=== PATIENT | female | born 1945 | race Caucasian/White ===

== ENCOUNTER 2018-09-26 06:44 | Emergency (ER) | payer OTHER ==
[2018-09-26 07:35] LABS: Protime INR 1.14
[2018-09-26 07:51] LABS: Albumin 3.8 g/dL (3.4-5.0); Bilirubin Direct 0.1 mg/dL (0-0.2); Bilirubin Total 0.5 mg/dL (0.2-1.0); Protein, Total 7.7 g/dL (6.4-8.2)
[2018-09-26 07:57] LABS: Absolute Lymphocytes (CBC) 1.5 K/uL (0.7-4.9); Absolute Monocytes 0.7 K/uL (0.1-1.3); Absolute Neutrophil 5.6 K/uL (1.8-8.0); Basophils % 1.4 % (0-1.3); Eosinophils % 4.2 % (0-4.4); Hematocrit 42.8 % (36.0-45.0); Lymphocytes % 18.2 % (15.3-44.8); MPV 7.8 fL (7.6-11.3); Monocytes % 8.3 % (3.3-12.3); RBC Red Blood Cell Count 4.89 M/uL (3.86-4.86)
[2018-09-26 08:35] LABS: Urine Blood NEGATIVE (NEG); Urine Glucose NEGATIVE (NEG); Urine Protein NEGATIVE (NEG); Urine Specific Gravity 1.025 (1.005-1.030)
[2018-09-26 08:39] LABS: Calcium Oxalate Crystals- Ur MANY (NONE SEEN); Urine Bacteria <20 /HPF (<20); Urine Culture Reflex Order NOT NEEDED; Urine RBC NONE SEEN /HPF (NONE SEEN)
--- NOTE | 2018-09-26 09:15 | RAD REPORT ---
EXAM DESCRIPTION: CT - Head Brain Wo Cont - 09/26/2018 8:58 am CLINICAL HISTORY: Headache/confusion COMPARISON: None. TECHNIQUE: Computed axial tomography of the head was obtained. IV contrast was not requested. All CT scans are performed using dose optimization technique as appropriate and may include automated exposure control or mA/KV adjustment according to patient size. FINDINGS: An intracranial bleed is not seen . The ventricles are normal in caliber. No extra-axial fluid collection is noted. Fluid within the sinuses/ mastoids is not seen. IMPRESSION: No acute intracranial abnormality is seen. If patient's symptoms persist MRI of the bra in would be recommended.
--- NOTE | 2018-09-26 09:23 | RAD REPORT ---
EXAM DESCRIPTION: CT - Abdomen Pelvis W Contrast - 09/26/2018 8:58 am CLINICAL HISTORY: Abdominal pain . COMPARISON: none. TECHNIQUE: Computed axial tomography of the abdomen pelvis was obtained. 100 cc Isovue-300 was admin istered intravenously. Oral contrast was not requested which limits evaluation of bowel. All CT scans are performed using dose optimization technique as appropriate and may include automated exposure control or mA/KV adjustment according to patient size. FINDINGS: Fatty liver. Several small pancreatic calcifications probably related to chronic pancreatitis Spleen upper limits normal size Adrenals and kidneys unremarkable . 8 centimeter cystic mass abuts the anterior aspect of the uterus and dome of the bladder. The mass is midline. No significant free fluid There is no evidence of diverticulitis. Small umbilical hernia contains fat IMPRESSION: 8 centimeter cystic mass within the pelvis may represent a benign ovarian cyst. Ovarian cystic neoplasm is another consideration. Ultrasound recommended
--- NOTE | 2018-09-26 09:24 | RAD REPORT ---
EXAM DESCRIPTION: Mona Single View09/26/2018 7:35 am CLINICAL HISTORY: Shortness of breath COMPARISON: none FINDINGS: The lungs appear clear of acute infiltrate. The heart is borderline enlarged IMPRESSION: No acute abnormalities displayed
[2018-09-26] MEDS ORDERED: POTASSIUM 25 MEQ EFFERV TAB ONE (10:24)
--- NOTE | 2018-09-26 11:38 | ER ---
Nurse's Notes [facility] Name: July Burton Age: 72 yrs Sex: Female : 1945 Arrival Date: 09/26/2018 Time: 06:49 Bed 17 Private MD: Diagnosis: Altered mental status, unspecified Presentation: 09/26 06:54 Presenting complaint: pt's daughter states pt had glaucoma surgery on Thursday after bb which the pt has a known hyphema but over the weekend the pt has become confused with chills. Pt has a condition which daughter explains as the pt will have a panic attack and pass out which has happened several times. They are concerned pt is developing an infection in her right eye. The pt's states pt "acts like this when she takes a lot of medicine". Transition of care: patient was not received from another setting of care. Onset of symptoms was September 24, 2018. Risk Assessment: Do you want to hurt yourself or someone else? Patient reports no desire to harm self or others. Initial Sepsis Screen: Does the patient meet any 2 criteria? No. Patient's initial sepsis screen is negative. Does the patient have a suspected source of infection? Yes: Other: recent eye surgery. Care prior to arrival: None. 06:54 Method Of Arrival: Carried bb 06:54 Acuity: MARCUS 2 bb Triage Assessment: 07:00 General: Appears distressed, comfortable, obese, Behavior is cooperative, CONFUSED. bp Historical: - Allergies: 07:04 No Known Allergies; bb - Home Meds: 07:04 aspirin Oral [Active]; hydrochlorothiazide 50 mg Oral tab 1 tab once daily [Active]; bb multiple vitamins [Active]; Simbrinza ophthalmic ophthalmic [Active]; donepezil 5 mg oral tab 1 tab once daily [Active]; Lumigan ophthalmic ophthalmic [Active]; pravastatin 10 mg oral tab 1 tab once daily [Active]; - PMHx: 07:04 Glaucoma; Hypertension; Hyperlipidemia; bb - PSHx: 07:04 eye surgery; bb - Immunization history:: Adult Immunizations up to date. - Social history:: Smoking status: Patient/guardian denies using tobacco. - Ebola Screening: : No symptoms or risks identified at this time. Screenin:06 Abuse screen: Denies threats or abuse. Denies injuries from another. Nutritional bp screening: No deficits noted. Tuberculosis screening: No symptoms or risk factors identified. Fall Risk None identified. Assessment: 07:00 General: Appears distressed, comfortable, obese, Behavior is cooperative, anxious. bp Pain:. Neuro: Level of Consciousness is awake, obeys commands, confused, Oriented to person. Cardiovascular: Rhythm is sinus rhythm. Respiratory: Airway is patent Respiratory effort is even, unlabored, Respiratory pattern is regular, symmetrical. GI: No signs and/or symptoms were reported involving the gastrointestinal system. : No signs and/or symptoms were reported regarding the genitourinary system. EENT: Reports RECENT GLAUCOMA SX. 07:00 Derm: No deficits noted. Musculoskeletal: Circulation, motion, and sensation intact. bp 08:24 Reassessment: CT PENDING. VS STABLE ON MONITOR. bp 08:42 Reassessment: PT TO CT WITH DEPOSITION OPERATOR. bp 09:09 Reassessment: PT RETURNED FROM CT. ALL CURRENT ORDERS COMPLETED. bp 10:24 Reassessment: U/S PENDING. VS STABLE ON MONITOR. bp 10:56 Reassessment: U/S AT B/S. bp 11:53 Reassessment: PT D/C HOME VIA W/C WITH FAMILY, DX WITH AMS. PT NOW AO4. bp Vital Signs: 07:04 BP 123 / 64; Pulse 67; Resp 16 S; Temp 98.6(O); Pulse Ox 96% on R/A; Weight 111.13 kg bb (R); Height 5 ft. 7 in. (170.18 cm) (R); 08:16 BP 135 / 65; Pulse 71; Resp 18; Temp 97.9(TE); Pulse Ox 98% on R/A; mh5 09:20 BP 120 / 62; Pulse 66; Resp 14; Pulse Ox 99% ; bp 10:30 BP 125 / 106; Pulse 60; Resp 16; Pulse Ox 98% ; bp 11:35 BP 130 / 63; Pulse 62; Resp 20; Temp 98.9(TE); Pulse Ox 100% on R/A; mh5 11:52 BP 120 / 83; Pulse 63; Resp 16; Temp 98.5; Pulse Ox 99% ; bp 07:04 Body Mass Index 38.37 (111.13 kg, 170.18 cm) bb NIH Stroke Scale Scores: 08:07 NIHSS Score: 0 jr8 ED Course: 06:49 Patient arrived in ED. ds1 06:55 Abdelrahman Perera PA is PHCP. jr8 06:55 Raad Cruz MD is Attending Physician. jr8 07:01 Triage completed. bb 07:01 Hal Tineo, RN is Primary Nurse. bp 07:04 Arm band placed on Patient placed in an exam room, on a stretcher, on pulse oximetry. bb Family accompanied patient. 07:05 Inserted saline lock: 20 gauge in left antecubital area, using aseptic technique. Blood mt collected. 07:06 Patient has correct armband on for positive identification. Bed in low position. Call bp light in reach. Side rails up X2. Adult w/ patient. 07:34 X-ray completed. Portable x-ray completed in exam room. Patient tolerated procedure kw well. 07:36 XRAY Chest (1 view) In Process Unspecified. EDMS 08:17 Urine collected: clean catch specimen, clear, Amount Voided: 240mL EKG done, by ED mh5 staff, reviewed by Abdelrahman PRAKASH. 08:58 CT completed. Patient tolerated procedure well. Patient moved back from CT. mw3 09:01 CT Head Brain wo Cont In Process Unspecified. EDMS 09:01 CT Abd/Pelvis - IV Contrast Only In Process Unspecified. EDMS 11:10 Pelvis Complete In Process Unspecified. EDMS 11:11 Ultrasound completed. Patient tolerated well. Radiology exam delayed due to U/S out pt sg3 exam being done. 11:53 No provider procedures requiring assistance completed. IV discontinued, intact, bp bleeding controlled, No redness/swelling at site. Pressure dressing applied. Administered Medications: 10:10 Drug: Potassium Chloride 40 mEq Route: PO; bp 11:54 Follow up: Response: No adverse reaction bp Outcome: 11:36 Discharge ordered by . jr8 11:53 Discharged to home via wheelchair, with family. bp 11:53 Condition: stable 11:53 Discharge instructions given to patient, family, Instructed on discharge instructions, follow up and referral plans. Demonstrated understanding of instructions, follow-up care. 11:54 Patient left the ED. bp NIH Stroke Scale - NIH Stroke Score Date: 09/26/2018 Time: 08:07 Total Score = 0 1a. Level of Consciousness (LOC) - 0(Alert) 1b. Level of Consciousness (LOC) (Year \\T\\ Age) - 0(Both) 1c. LOC Commands (Open \\T\\ Closes Eyes/Lead Painter) - 0(Both) 2. Best Gaze (Lateral Gaze Paresis) - 0(Normal) 3. Visual Field Loss - 0(No visual loss) 4. Facial Palsy - 0(Normal) 5a. Left Arm: Motor (10-second hold) - 0(No drift) 5b. Right Arm: Motor (10-second hold) - 0(No drift) 6a. Left Leg: Motor (5-second hold - always test supine) - 0(No drift) 6b. Right Leg: Motor (5-second hold - always test supine) - 0(No drift) 7. Limb Ataxia (finger/nose \\T\\ heel/ibrahim - test with eyes open) - 0(Absent) 8. Sensory Loss (pinprick arms/legs/face) - 0(Normal) 9. Best Language: Aphasia (description/naming/reading) - 0(No aphasia) 10. Dysarthria (speech clarity - read or repeat words) - 0(Normal) 11. Extinction and Inattention (visual/tactile/auditory/spatial/personal) - 0(No abnormality) Initials: jr8 Signatures: Dispatcher [employer] [facility] Emely Adhikari ds1 Jane Aguayo RN RN Patricia Perdue Josh, PA PA jr8 Gia Agee 5 Fei, [facility] Hal Tineo RN RN bp Godinez, [facility]3 Ana Lovelace 3 Corrections: (The following items were deleted from the chart) 11:11 11:09 Ultrasound completed. Patient tolerated well. sg3 sg3
--- NOTE | 2018-09-26 11:38 | EDPHYS ---
Physician Documentation [facility] Name: July Burton Age: 72 yrs Sex: Female : 1945 Arrival Date: 09/26/2018 Time: 06:49 Bed 17 Private MD: ED Physician Raad Cruz HPI: 09/26 08:07 This 72 yrs old Female presents to ER via Carried with complaints of Altered jr8 Mental Status. 08:07 The patient presents with decreased mental status, decreased responsiveness. Onset: The jr8 symptoms/episode began/occurred acutely, today. Possible causes: unknown. Associated signs and symptoms: The patient has no apparent associated signs or symptoms. Current symptoms: In the emergency department the patient's symptoms are unchanged from the initial presentation. Patient's baseline: Neuro: alert and fully oriented, Motor: no deficits, Ambulation: walks with assist only, uses walker, Speech: normal. The patient has not experienced similar symptoms in the past. The patient has been recently seen by a physician:. Patient recently had glaucoma surgery to right eye. Stated that this morning she was altered and complaining of abdominal pain. Stated that she could not even help her self up. EMS called at that time. Patient currently alert to person, place, time, event. Appears to be slow to respond to questions but answers appropriately. Currently with complaint of mild headache and abdominal discomfort. Patient and family denies recent change in medications or addition to meds. Stated that she is not on any pain meds or other medications that could alter her. Historical: - Allergies: 07:04 No Known Allergies; bb - Home Meds: 07:04 aspirin Oral [Active]; hydrochlorothiazide 50 mg Oral tab 1 tab once daily [Active]; bb multiple vitamins [Active]; Simbrinza ophthalmic ophthalmic [Active]; donepezil 5 mg oral tab 1 tab once daily [Active]; Lumigan ophthalmic ophthalmic [Active]; pravastatin 10 mg oral tab 1 tab once daily [Active]; - PMHx: 07:04 Glaucoma; Hypertension; Hyperlipidemia; bb - PSHx: 07:04 eye surgery; bb - Immunization history:: Adult Immunizations up to date. - Social history:: Smoking status: Patient/guardian denies using tobacco. - Ebola Screening: : No symptoms or risks identified at this time. ROS: 08:07 Eyes: Negative for injury, pain, redness, and discharge, ENT: Negative for injury, jr8 pain, and discharge, Neck: Negative for injury, pain, and swelling, Cardiovascular: Negative for chest pain, palpitations, and edema, Respiratory: Negative for shortness of breath, cough, wheezing, and pleuritic chest pain, Back: Negative for injury and pain, MS/Extremity: Negative for injury and deformity, Skin: Negative for injury, rash, and discoloration. 08:07 Abdomen/GI: Positive for abdominal pain, Negative for nausea, vomiting, and diarrhea, constipation, abdominal cramps, abdominal distension, anorexia, dysphagia, hematemesis, black/tarry stool, rectal pain, rectal bleeding, bowel incontinence, flatulence. 08:07 Neuro: Positive for altered mental status, headache. Exam: 08:07 Eyes: Pupils equal round and reactive to light, extra-ocular motions intact. Lids and jr8 lashes normal. Subconjunctival hemorrhage present to right eye from surgery with mild hyphema present. Cornea within normal limits. Periorbital areas with no swelling, redness, or edema. ENT: Nares patent. No nasal discharge, no septal abnormalities noted. Tympanic membranes are normal and external auditory canals are clear. Oropharynx with no redness, swelling, or masses, exudates, or evidence of obstruction, uvula midline. Mucous membranes moist. Neck: Trachea midline, no thyromegaly or masses palpated, and no cervical lymphadenopathy. Supple, full range of motion without nuchal rigidity, or vertebral point tenderness. No Meningismus. Cardiovascular: Regular rate and rhythm with a normal S1 and S2. No gallops, murmurs, or rubs. Normal PMI, no JVD. No pulse deficits. Respiratory: Lungs have equal breath sounds bilaterally, clear to auscultation and percussion. No rales, rhonchi or wheezes noted. No increased work of breathing, no retractions or nasal flaring. Back: No spinal tenderness. No costovertebral tenderness. Full range of motion. Skin: Warm, dry with normal turgor. Normal color with no rashes, no lesions, and no evidence of cellulitis. MS/ Extremity: Pulses equal, no cyanosis. Neurovascular intact. Full, normal range of motion. 08:07 Abdomen/GI: Inspection: obese Bowel sounds: active, all quadrants, Palpation: soft, in all quadrants, moderate abdominal tenderness, in the epigastric area, right upper quadrant and left upper quadrant, mass, is not appreciated, rebound tenderness, is not appreciated, voluntary guarding, is not appreciated, involuntary guarding, is not appreciated, no appreciated organomegaly, Indicators: McBurney's point is not tender, Weber's sign is negative, Rovsing's sign is negative, Liver: tenderness, is not appreciated. 08:07 Neuro: Orientation: to person, place \T\ time. Mentation: slow to respond, Memory: appropriate for stated age, Cranial nerves: CN I not tested, CN II- XII are normal as tested, visual connell are intact. extraocular movements are intact, Facial palsy and sensory deficits are absent. Nystagmus is absent. Speech is clear and appropriate. Tongue strength is normal, Cerebellar function: normal finger to nose testing, heel to ibrahim testing is normal, Motor: moves all fours, strength is 5/5 in all extremities, Sensation: no obvious gross deficits, Gait: not tested. seizure activity, is not displayed by the patient, Abnormal movements: there are no abnormal movements. Vital Signs: 07:04 BP 123 / 64; Pulse 67; Resp 16 S; Temp 98.6(O); Pulse Ox 96% on R/A; Weight 111.13 kg bb (R); Height 5 ft. 7 in. (170.18 cm) (R); 08:16 BP 135 / 65; Pulse 71; Resp 18; Temp 97.9(TE); Pulse Ox 98% on R/A; mh5 09:20 BP 120 / 62; Pulse 66; Resp 14; Pulse Ox 99% ; bp 10:30 BP 125 / 106; Pulse 60; Resp 16; Pulse Ox 98% ; bp 11:35 BP 130 / 63; Pulse 62; Resp 20; Temp 98.9(TE); Pulse Ox 100% on R/A; mh5 11:52 BP 120 / 83; Pulse 63; Resp 16; Temp 98.5; Pulse Ox 99% ; bp 07:04 Body Mass Index 38.37 (111.13 kg, 170.18 cm) bb NIH Stroke Scale Scores: 08:07 NIHSS Score: 0 jr8 MDM: 06:55 Patient medically screened. jr8 11:34 Data reviewed: vital signs, nurses notes, lab test result(s), EKG, radiologic studies, [facility] CT scan, ultrasound. Data interpreted: Pulse oximetry: on room air is 100 %. Interpretation: normal. Counseling: I had a detailed discussion with the patient and/or guardian regarding: the historical points, exam findings, and any diagnostic results supporting the discharge/admit diagnosis, lab results, radiology results, the need for outpatient follow up, a family practitioner, to return to the emergency department if symptoms worsen or persist or if there are any questions or concerns that arise at home. Response to treatment: the patient's symptoms have markedly improved after treatment. ED course: Patient doing better. No acute infective finding. No other acute findings to suggest earlier altered episode. Patient now back to baseline. Discussed results with family and patient. Good with following up and knows to come back if worse . 09/26 07:14 Order name: Basic Metabolic Panel [facility] 09/26 07:14 Order name: CBC with Diff; Complete Time: 08:12 [facility] 09/26 07:14 Order name: LFT's; Complete Time: 07:53 [facility] 09/26 07:14 Order name: Magnesium; Complete Time: 07:53 09/26 07:14 Order name: NT PRO-BNP; Complete Time: 07:53 [facility] 09/26 07:14 Order name: PT-INR; Complete Time: 08:12 09/26 07:14 Order name: XRAY Chest (1 view); Complete Time: 09:33 09/26 07:14 Order name: Urine Microscopic Only; Complete Time: 09:12 [facility] 09/26 07:17 Order name: Basic Metabolic Panel; Complete Time: 07:53 EDMS 09/26 08:12 Order name: CT Head Brain wo Cont; Complete Time: 09:33 8 09/26 08:12 Order name: CT Abd/Pelvis - IV Contrast Only; Complete Time: 09:33 [facility] 09/26 08:29 Order name: Urine Dipstick--Ancillary (enter results); Complete Time: 09:12 bd 09/26 11:10 Order name: Pelvis Complete; Complete Time: 11:43 EDMS 09/26 07:14 Order name: EKG; Complete Time: 07:18 [facility] 09/26 07:14 Order name: Cardiac monitoring; Complete Time: 07:32 09/26 07:14 Order name: EKG - Nurse/Tech; Complete Time: 07:54 09/26 07:14 Order name: IV Saline Lock; Complete Time: 07:09/26 07:14 Order name: Labs collected and sent; Complete Time: 07:32 09/26 07:14 Order name: O2 Per Protocol; Complete Time: 07:09/26 07:14 Order name: O2 Sat Monitoring; Complete Time: 07:09/26 07:14 Order name: Urine Dipstick-Ancillary (obtain specimen); Complete Time: 08:24 Administered Medications: 10:10 Drug: Potassium Chloride 40 mEq Route: PO; bp 11:54 Follow up: Response: No adverse reaction bp Disposition: 09/27 07:40 Co-signature as Attending Physician, Raad Cruz MD I agree with the assessment and tash plan of care. Disposition: 09/26/18 11:36 Discharged to Home. Impression: Altered mental status, unspecified. - Condition is Stable. - Discharge Instructions: Confusion. - Medication Reconciliation Form, Thank You Letter, Antibiotic Education, Prescription Opioid Use form. - Follow up: Private Physician; When: 2 - 3 days; Reason: Recheck today's complaints, Continuance of care, Re-evaluation by your physician. - Problem is new. - Symptoms have improved. NIH Stroke Scale - NIH Stroke Score Date: 09/26/2018 Time: 08:07 Total Score = 0 1a. Level of Consciousness (LOC) - 0(Alert) 1b. Level of Consciousness (LOC) (Year \T\ Age) - 0(Both) 1c. LOC Commands (Open \T\ Closes Eyes/Heavy Duty Custodian) - 0(Both) 2. Best Gaze (Lateral Gaze Paresis) - 0(Normal) 3. Visual Field Loss - 0(No visual loss) 4. Facial Palsy - 0(Normal) 5a. Left Arm: Motor (10-second hold) - 0(No drift) 5b. Right Arm: Motor (10-second hold) - 0(No drift) 6a. Left Leg: Motor (5-second hold - always test supine) - 0(No drift) 6b. Right Leg: Motor (5-second hold - always test supine) - 0(No drift) 7. Limb Ataxia (finger/nose \T\ heel/ibrahim - test with eyes open) - 0(Absent) 8. Sensory Loss (pinprick arms/legs/face) - 0(Normal) 9. Best Language: Aphasia (description/naming/reading) - 0(No aphasia) 10. Dysarthria (speech clarity - read or repeat words) - 0(Normal) 11. Extinction and Inattention (visual/tactile/auditory/spatial/personal) - 0(No abnormality) Initials: jr8 Signatures: Dispatcher [employer] [facility] Raad Cruz MD MD cha Ballard, Brenda, RN RN bb Abdelrahman Perera PA PA jr8 Hal Tineo, RN RN bp Corrections: (The following items were deleted from the chart) 09/26 08:24 07:16 Abarca ordered. jr8 bp 11:10 09:35 Transvaginal Study (Probe)+[email or web address] ordered. [facility] 11:54 11:36 09/26/2018 11:36 Discharged to Home. Impression: Altered mental status, bp unspecified. Condition is Stable. Forms are Medication Reconciliation Form, Thank You Letter, Antibiotic Education, Prescription Opioid Use. Follow up: Private Physician; When: 2 - 3 days; Reason: Recheck today's complaints, Continuance of care, Re-evaluation by your physician. Problem is new. Symptoms have improved. jr8
--- NOTE | 2018-09-26 11:42 | RAD REPORT ---
EXAM DESCRIPTION: US - Pelvis Complete - 09/26/2018 11:13 am CLINICAL HISTORY: Abdominal pain COMPARISON: CT September 26, 2018 FINDINGS: The uterus measures 8 x 3 x 4 centimeters. Endometrial stripe was poorly visualized. A fib roid is not seen. 8 centimeter anechoic cystic mass is present within the right ovary. Right ovary contains blood flow Left ovary was not seen. An adnexal mass is not noted. No free fluid IMPRESSION: 8 centimeter right ovarian cystic mass likely benign. Follow-up ultrasound 3 months cathi mmended to assess stability
--- NOTE | 2018-09-26 20:50 | EKG ---
Test Date: 2018-09-26 Test Time: 07:41:35 Furnace Firer: RICK MEASUREMENT RESULTS: Intervals: Rate: 59 MN: 180 QRSD: 110 QT: 464 QTc: 459 [place]: P: 31 MN: 180 QRS: -2 T: 26 INTERPRETIVE STATEMENTS: Sinus bradycardia Low voltage QRS Borderline ECG No previous ECG available for comparison Electronically Signed On 09-26-18 20:49:13 CDT by Hebert Monahan
== END 2018-09-26 11:54 | disposition home or self-care (01) ==
LOC: ER 06:44
DX: R41.82 Altered mental status, unspecified (principal); I10 Essential (primary) hypertension; E78.5 Hyperlipidemia, unspecified; Z79.82 Long term (current) use of aspirin
CPT/HCPCS: 36415; 70450; 71045; 74177; 76856; 80048; 80076; 81003; 81015; 83735; 83880; 85025; 85610; 93005; 99285; Q9967

== ENCOUNTER 2019-04-05 22:33 | Observation (INO) | payer OTHER ==
--- OUTSIDE RECORDS SUMMARY | 2019-04-05 22:34 | XMS REPORT ---
:1945 [facility] Address [address] [place] [address] [place] [id number] Care Team Providers Name Role Phone Unavailable Unavailable Unavailable Problems This patient has no known problems. Allergies, Adverse Reactions, Alerts This patient has no known allergies or adverse reactions. Medications This patient has no known medications.
--- OUTSIDE RECORDS SUMMARY | 2019-04-05 22:34 | XMS REPORT | Summary of Care ---
:1945 Author Organization [facility] Address [address] [place] [address] Care Team Providers Name Role Phone Claudette Kidd MD Primary Care Provider Valeriano Mckeon MD Unavailable Reason for Visit Reason Comments LAB Encounter Details Date Type Department Care Team Description 11/15/2018 Central Supply Nurse Visit [facility] Claudette Kidd MD [address] [place] [address] Dr [address] [place] [address] Other reduced mobility ; Professional Office 2, [facility] Lab Memory loss; Building Phlebotomy Type 2 diabetes mellitus without complication, without long-term current use of insulin; Lab Hypervitaminosis B6; Professional Office Other manager terminal (current) drug therapy Building [address] [place] [address] , [address] [place] [address] Allergies Active Allergy Reactions Severity Noted Date Comments Amitriptyline Hcl Hallucinations 09/22/2016 Baclofen Hallucinations 09/22/2016 Docusate Sodium Hallucinations 09/22/2016 Furosemide Hallucinations 09/22/2016 Gabapentin Hallucinations 09/22/2016 Hydrocodone Bitartrate Dizziness 09/22/2016 Pregabalin Hallucinations 06/09/2017 Meloxicam Hallucinations 09/22/2016 Potassium Gluconate Hallucinations 09/22/2016 Tramadol Hcl Hallucinations 09/22/2016 documented as of this encounter (statuses as of 11/15/2018) Medications Medication Sig Dispensed Refills Start Date End Date Status aspirin 325 mg Take 325 mg by 0 Active tabletIndications: mouth daily. Hyperlipidemia, unspecified hyperlipidemia type calcium carbonate-vitamin Take 1 tablet 30 tablet 1 12/18/2016 Active D3 600 mg (1,500 mg)-800 a day unit per tablet PHENAZOPYRIDINE HCL (AZO Take by mouth 0 Active ORAL) 2 (two) times daily. COCONUT OIL TOPICAL Apply to 0 Active area(s). Mixed with mint. Uses prn for muscle pain. multivitamin tablet Take 1 tablet 0 Active by mouth daily. Zinc 50 mg Tab Take 25 mg by 0 Active mouth. LATANOPROST, BULK, MISC 0 Active cyanocobalamin/cobamamide Place under 0 Active (B12 SL) the tongue. APPLE CIDER VINEGAR ORAL Take by mouth 0 Active daily. cinnamon bark (CINNAMON Take by mouth 0 Active ORAL) daily. brinzolamide-brimonidine Place in each 0 Active (SIMBRINZA) 1-0.2 % eye daily. ophthalmic drops thiamine (VITAMIN B-1) 100 Take 100 mg by 0 Active mg tablet mouth daily. bimatoprost 0.03 % Place 1 Drop 0 Active ophthalmic drops in both eyes daily. HYDROCHLOROTHIAZIDE 50 mg TAKE ONE 90 tablet 3 10/03/2018 Active tabletIndications: TABLET BY Essential hypertension MOUTH DAILY pravastatin 10 mg TAKE ONE 90 tablet 0 10/01/2018 Active tabletIndications: TABLET BY Hyperlipidemia, MOUTH EVERY unspecified hyperlipidemia NIGHT AT type BEDTIME DONEPEZIL 5 mg TAKE ONE 90 tablet 3 10/23/2018 Active tabletIndications: Memory TABLET BY loss MOUTH EVERY NIGHT AT BEDTIME documented as of this encounter (statuses as of 11/15/2018) Active Problems Problem Noted Date Occasional tremors 09/22/2016 Essential hypertension 09/22/2016 Glaucoma, unspecified glaucoma, unspecified laterality 09/22/2016 Memory loss 09/22/2016 Hyperlipidemia, unspecified hyperlipidemia type 09/22/2016 Type 2 diabetes mellitus without complication, without long-term current 09/22 use of insulin documented as of this encounter (statuses as of 11/15/2018) Immunizations Name Administration Dates Next Due Influenza High Dose 03/03/2018, 03/03/2017 documented as of this encounter Social History Tobacco Use Types Packs/Day Years Used Date Former Smoker Cigarettes 1 5 Smokeless Tobacco: Never Used Comments: quit 1985 Alcohol Use Drinks/Week oz/Week Comments No Sex Assigned at Date Recorded Not on file Job Start Date Occupation Industry Not on file Not on file Not on file Travel History Travel Start Travel End No recent travel history available. documented as of this encounter Last Filed Vital Signs Not on filedocumented in this encounter Plan of Treatment Date Type Specialty Care Team Description 11/23/2018 Office Visit Internal Medicine Claudette Kidd MD [address] [place] [address] Dr [address] [place] [address] [phone] Health Maintenance Due Date Last Done Comments DTaP,Tdap,and Td Vaccines 10/28/1962 (1 - Tdap) Zoster Recombinant Vaccine 10/28/1993 (SHINGRIX) (1 of 2) LUNG CANCER SCREEN: 10/28/1998 Recommended for age 55-80 with 30 + pack year history Medicare Wellness Visit 10/28/2008 Osteoporosis Screening 10/28/2008 PNEUMOCOCCAL VACCINES 65+ 10/28/2008 (1 of 2 - PCV13) MAMMOGRAM 11/17/2017 11/17/2016 EYE EXAM 03/17/2018 03/17/2017 (Previously completed) FOOT EXAM 06/09/2018 06/09/2017, 06/09/2017 URINE MICROALBUMIN 06/15/2018 06/15/2017 INFLUENZA VACCINE 12/12/2018 03/03/2018, 03/03/2017 HgA1C 02/20/2019 08/20/2018, 05/20/2018, 01/28/2018, Additional history exists CREATININE (SERUM) 08/21/2019 08/20/2018, 05/20/2018, 01/28/2018, Additional history exists LDL-C 08/21/2019 08/20/2018, 05/20/2018, 01/28/2018, Additional history exists COLONOSCOPY 06/28/2027 Postponed from 10/28/1993 (Alternative Guidelines) documented as of this encounter Results Not on filedocumented in this encounter Visit Diagnoses Diagnosis Other reduced mobility Memory loss Type 2 diabetes mellitus without complication, without long-term current use of insulin Hypervitaminosis B6 Other hyperalimentation Other manager terminal (current) drug therapy documented in this encounter Insurance Payer Benefit Plan Subscriber ID Effective Dates Phone Address Type / Group [employer] - [employer] [id number] 2016-Presen Medicare Adv MANAGED t PPO MEDICARE documented as of this encounter
--- OUTSIDE RECORDS SUMMARY | 2019-04-05 22:34 | XMS REPORT | Summary of Care ---
:1945 Author Organization [facility] - Health Address [address] [place] [address] Care Team Providers Name Role Phone Claudette Kidd MD Primary Care Provider Valeriano Mckeon MD Unavailable Encounter Details Date Type Department Care Team Description 11/15/2018 Orders Only [facility] Doctor Unassigned, [address] [facility] [place] [address] [address] [place] [address] Allergies Active Allergy Reactions Severity Noted Date Comments Amitriptyline Hcl Hallucinations 09/22/2016 Baclofen Hallucinations 09/22/2016 Docusate Sodium Hallucinations 09/22/2016 Furosemide Hallucinations 09/22/2016 Gabapentin Hallucinations 09/22/2016 Hydrocodone Bitartrate Dizziness 09/22/2016 Pregabalin Hallucinations 06/09/2017 Meloxicam Hallucinations 09/22/2016 Potassium Gluconate Hallucinations 09/22/2016 Tramadol Hcl Hallucinations 09/22/2016 documented as of this encounter (statuses as of 11/16/2018) Medications Medication Sig Dispensed Refills Start Date [...] as of this encounter (statuses as of 11/16/2018) Active Problems Problem Noted Date Occasional tremors 09/22/2016 Essential hypertension 09/22/2016 Glaucoma, unspecified glaucoma, unspecified laterality 09/22/2016 Memory loss 09/22/2016 Hyperlipidemia, unspecified hyperlipidemia type 09/22/2016 Type 2 diabetes mellitus without complication, without long-term current 09/22 use of insulin documented as of this encounter (statuses as of 11/16/2018) Immunizations Name Administration Dates Next Due Influenza [...] Office Visit Internal Medicine Claudette Kidd MD [address] [place] [address] [place] [address] [phone] Health Maintenance Due Date Last Done Comments [...] 06/15/2017 INFLUENZA VACCINE 12/12/2018 03/03/2018, 03/03/2017 HgA1C 05/18/2019 11/15/2018, 08/20/2018, 05/20/2018, Additional history exists CREATININE (SERUM) 11/16/2019 11/15/2018, 08/20/2018, 05/20/2018, Additional history exists LDL-C 11/16/2019 11/15/2018, 08/20/2018, 05/20/2018, Additional history exists COLONOSCOPY 06/28/2027 Postponed from 10/28/1993 (Alternative Guidelines) documented as of this encounter Procedures Procedure Name Priority Date/Time Associated Diagnosis Comments AGREEMENTS AUTHORIZATIONS Routine 11/15/2018 12:01 AM AND IRREVOCABLE CDT ASSIGNMENTS (FORM 2000) documented in this encounter Results Not on filedocumented in this encounter Insurance Payer Benefit Plan Subscriber ID Effective Dates Phone Address Type / Group [employer] - CHOICE C[employer] [id number] 2016-Presen Medicare Adv MANAGED t PPO MEDICARE documented as of this encounter
--- OUTSIDE RECORDS SUMMARY | 2019-04-05 22:35 | XMS REPORT | Summary of Care ---
:1945 Author Organization [facility] Address [address] [place] [address] Care Team Providers Name Role Phone Claudette Kidd MD Primary Care Provider Valeriano Mckeon MD Unavailable Reason for Visit Reason Comments Follow-up memory lab review LAB Encounter Details Date Type Department Care Team Description 11/23/2018 Office Visit [facility] Pediatric Bernabe, Memory loss ( Primary Dx); and Adult Primary Claudette Calhoun MD Bilateral foot pain; [address] Essential hypertension; [address] [place] [address], [place] [address] Skin lesion of face; [address] [place] [address] Sleep difficulties; [place], [place] [phone] 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; [id number] Other specified health status ; [phone] Abnormal levels of other serum enzymes ; Hypertriglyceridemia; Abnormal finding of blood chemistry Allergies Active Allergy Reactions Severity Noted Date Comments Amitriptyline Hcl Hallucinations 09/22/2016 Baclofen Hallucinations 09/22/2016 Codeine Anaphylaxis High 11/23/2018 Docusate Sodium Hallucinations 09/22/2016 Furosemide Hallucinations 09/22/2016 Gabapentin Hallucinations 09/22/2016 Hydrocodone Bitartrate Dizziness 09/22/2016 Pregabalin Hallucinations 06/09/2017 Meloxicam Hallucinations 09/22/2016 Potassium Gluconate Hallucinations 09/22/2016 Tramadol Hcl Hallucinations 09/22/2016 documented as of this encounter (statuses as of 11/28/2018) Medications Medication Sig Dispensed Refills Start Date End Date Status aspirin 325 mg Take 325 mg 0 Active tabletIndications: by mouth Hyperlipidemia, daily. unspecified hyperlipidemia type PHENAZOPYRIDINE HCL (AZO Take by 0 Active ORAL) mouth 2 (two) times daily. COCONUT OIL TOPICAL Apply to 0 Active area(s). Mixed with mint. Uses prn for muscle pain. multivitamin tablet Take 1 0 Active tablet by mouth daily. Zinc 50 mg Tab Take 25 mg 0 Active by mouth. LATANOPROST, BULK, MISC 0 Active cyanocobalamin/cobamamid Place under 0 Active e (B12 SL) the tongue. cinnamon bark (CINNAMON Take by 0 Active ORAL) mouth daily. thiamine (VITAMIN B-1) Take 100 mg 0 Active 100 mg tablet by mouth daily. HYDROCHLOROTHIAZIDE 50 TAKE ONE 90 tablet 3 10/03/2018 Active mg tabletIndications: TABLET BY Essential hypertension MOUTH DAILY pravastatin 10 mg TAKE ONE 90 tablet 0 10/01/2018 Active tabletIndications: TABLET BY Hyperlipidemia, MOUTH EVERY unspecified NIGHT AT hyperlipidemia type BEDTIME DONEPEZIL 5 mg TAKE ONE 90 tablet 3 10/23/2018 Active tabletIndications: TABLET BY Memory loss MOUTH EVERY NIGHT AT BEDTIME acetylcysteine 600 mg once 0 06/25/2018 Active (M-ATBGRD-A-CYSTEINE now. MISC) cholecalciferol, vitamin 1,000 mg 0 06/25/2018 Active D3, (D3-2000 ORAL) once now. pyridoxine, vitamin B6, Take 25 mg 0 06/25/2018 Active 50 mg tablet by mouth once now. calcium Take 1 30 tablet 1 12/18/2016 11/26/19 Discontinued carbonate-vitamin D3 600 tablet a day 19 mg (1,500 mg)-800 unit per tablet APPLE CIDER VINEGAR ORAL Take by 0 11/26/19 Discontinued mouth daily. 19 brinzolamide-brimonidine Place in 0 11/26/19 Discontinued (SIMBRINZA) 1-0.2 % each eye 19 ophthalmic drops daily. bimatoprost 0.03 % Place 1 Drop 0 11/26/19 Discontinued ophthalmic drops in both eyes 19 daily. documented as of this encounter (statuses as of 11/28/2018) Active Problems Problem Noted Date Occasional tremors 09/22/2016 Essential hypertension 09/22/2016 Glaucoma, unspecified glaucoma, unspecified laterality 09/22/2016 Memory loss 09/22/2016 Hyperlipidemia, unspecified hyperlipidemia type 09/22/2016 Type 2 diabetes mellitus without complication, without long-term current 09/22 use of insulin documented as of this encounter (statuses as of 11/28/2018) Immunizations Name Administration Dates Next Due Influenza High Dose 03/03/2018, 03/03/2017 documented as of this encounter Social History Tobacco Use Types Packs/Day Years Used Date Former Smoker Cigarettes 1 5 Smokeless Tobacco: Never Used Comments: quit 1984 Alcohol Use Drinks/Week oz/Week Comments No Sex Assigned at Date Recorded Not on file Job Start Date Occupation Industry Not on file Not on file Not on file Travel History Travel Start Travel End No recent travel history available. documented as of this encounter Last Filed Vital Signs Vital Sign Reading Time Taken Comments Blood Pressure 101/65 11/23/2018 3:27 PM CDT Pulse 65 11/23/2018 3:27 PM CDT Temperature 36.5 C (97.7 F) 11/23/2018 3:27 PM CDT Respiratory Rate 20 11/23/2018 3:27 PM CDT Oxygen Saturation 96% 11/23/2018 3:27 PM CDT Inhaled Oxygen Concentration - - Weight 107.8 kg (237 lb 11.2 oz) 11/23/2018 3:27 PM CDT Height - - Body Mass Index 37.23 08/23/2018 2:47 PM CDT documented in this encounter Patient Instructions Patient InstructionsDiana Patel M - 11/23/2018 3:00 PM CDT Table 3: Selected Food Sources of Vitamin D (from https://ods.od.nih.gov/ factsheets/VitaminD-HealthProfessional/) Food IUs per serving* Cod liver oil, 1 tablespoon 1,360 Swordfish, cooked, 3 ounces 566 [place] (sockeye), cooked, 3 ounces 447 Tuna fish, canned in water, drained, 3 ounces 154 [place] juice fortified with vitamin D, 1 cup (check product labels, as amount of added vitamin D varies) 137 Milk, nonfat, reduced fat, and whole, vitamin D-fortified, 1 cup 115-124 Yogurt, fortified with 20% of the DV for vitamin D, 6 ounces (more heavily fortified yogurts providemore of the DV) 80 Margarine, fortified, 1 tablespoon 60 Sardines, canned in oil, drained, 2 sardines 46 Liver, beef, cooked, 3 ounces 42 Egg, 1 large (vitamin D is found in yolk) 41 Yrptt-yf-yrg cereal, fortified with 10% of the DV for vitamin D, 0.75-1 cup ( more heavily fortified cereals might provide more of the DV) 40 Cheese, Danish, 1 ounce 6 * IUs=International Units. DV=Daily Value. DVs were developed by the U.S. Food and Drug Administration to help consumers compare the nutrient contents among products within the context of a total daily diet. The DV for vitamin D is currently set at 400 IU for adults and children age 4 and older. Food labels, however, are notrequired to list vitamin D content unless a food has been fortified with this nutrient. Foods providing 20% or more of the DV are considered to be high sources of a nutrient, but foods providing lower percentages of the DV also contribute to a healthful diet. documented in this encounter Progress Notes Claudette Kidd MD - 11/23/2018 3:00 PM CDT DOS: 11/23/2018 CC: Memory issues/ReCODE protocol HPI: July Burton is a 73 year old female with PMH including has a past medical history of Glaucoma, HTN (hypertension), Memory change, and Myoclonic jerking. who is being seen today for Memory issues/ReCODE protocol. ReCode visit # 5. Has memory improved from last visit? Patient daughter states her mood has improved. states she doesn't get as frustrated as she used to. Recommendations from most recent ReCODE labs drawn on 11/15/18 Recommendations: Potassium levels: increase through diet. Calcium levels: ok Albumin: ok Cholesterol: improving. Eat more nuts and whole grains Vitamin D: increase through diet. Hscrp: elevated. Homocysteine: continue vitamins. Cut back on B6. BMI, elevated hgbA1c,and fasting insulin levels: insulin level has slowly elevated over time. Thyroid: thyroid has improved. Zinc and copper levels: ok [place] Cognitive Assessment score 11/23/2018 : did not do during visit. Patient states since last visit she had surgery on her eye for glaucoma. She states she still has stitches on her eye. Patient states she can see better than she used to. Patient has a spot on her face she would like me to look at. Patient is worried because it's so close to her eye. Patient daughter states she will take her to follow with dermatology. Patient keeps log of BPs with reading in the 110s-112/60s-70s. Patient states her feet wake her up at night. She states she puts coconut oil and peppermint on her feet which helps. Patient daughter states she go through cycles where she gets sleep and some where she doesn't. She's not napping as much as she used to. Patient states she hasn't been exercising like she needs to. She states she likes crossword puzzles. Medications reviewed in [employer], past medical history and social history and allergies reviewed. Review of Systems Musculoskeletal: + bilateral foot pain Neurological: + memory problem Psychiatric/Behavioral: Positive for sleep disturbance. PE: Blood pressure 101/65, pulse 65, temperature 36.5 C (97.7 F), temperature source Temporal Artery, resp. rate 20, weight 237 lb 11.2 oz (107.8 kg), SpO2 96 %. Physical Exam Constitutional: She is oriented to person, place, and time. She appears well- developed and well-nourished. No distress. HENT: Head: Normocephalic and atraumatic. Right Ear: External ear normal. Left Ear: External ear normal. Nose: Nose normal. No tracheal deviation Eyes: Right eye exhibits no discharge. Left eye exhibits no discharge. No scleral icterus. Left and right eyelids normal. Neurological: She is alert and oriented to person, place, and time. No tremors. Patient is in wheelchair. Skin: Skin is warm and dry. She is not diaphoretic. Psychiatric: She has a normal mood and affect. Her behavior is normal. Pleasant. Vitals reviewed. Results: labs reviewed in [employer] EMR. Education & Visit Time: this visit involved counseling and coordination of care that comprised more than 50% of the visit time. I spent at least 40 minutes total time with the patient. Of that time, at least 1 minutes was spent on exam, and at least 39 minutes was spent obtaining history and counseling the patient regarding risks and benefits of treatment, treatment options and prevention. A/P: July Burton is a 73 year old female with PMH including has a past medical history of Glaucoma, HTN (hypertension), Memory change, and Myoclonic jerking. who is being seen today for Memory issues/ReCODE protocol. Memory loss (primary encounter diagnosis) Comment: went over most recent ReCODE labs. Patient will follow recommendations as discussed in clinic Plan: will put in memory labs Bilateral foot pain, Sleep difficulties Comment: foot pain wakes her up at night. She uses peppermint and coconut oil for pain relief. Plan: discussed with patient to increase peppermint on feet. Essential hypertension Comment: Patient keeps log of BPs with reading in the 110s-112/60s-70s. Plan:monitor. Skin lesion of face Comment: she has a lesion around her eye. Plan: patient will follow with dermatology Sleep difficulties Comment: discussed lifestyle options. Plan: family will work on these. 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 Has Plan: VITAMIN B12, LEVEL, VITAMIN D, 25-OH, FOLATE Other specified health status Comment: memory issues. Working on improving this. Plan: HIGH SENSITIVITY CRP, VITAMIN B6, PLASMA Abnormal levels of other serum enzymes Comment: "Prolonged exposure of endothelial cells to homocysteine reduces the activity of dimethylarginine dimethylaminohydrolase, the enzyme that degrades asymmetric dimethylarginine, an endogenous inhibitor of nitric oxide synthase; this impairs the production of nitric oxide. This may contribute toimpaired endothelium-dependent vasodilation of both conduit and resistance vessels." [ EVALUATION OF SERUM HOMOCYSTEINE AN INDEPENDENT RISK FACTOR FOR MYOCARDIAL INFARCTION IN YOUNG PATIENTS, National Journal of Medical Research, Concetta et.al. 2012.] This in turn could lead to problems with memory. Will follow homocysteine level which is affected by B6 levels. Low B6 levels can lead to high homocysteine levels. Plan: VITAMIN B6, PLASMA Hypertriglyceridemia Comment: need to monitor. Plan: LIPID PANEL (75238)(TOTAL CHOLESTEROL, TRIGLYCERIDES, HDL) Abnormal finding of blood chemistry Comment: elevated insulin level. Need to monitor, also A1c in prediabetes range. Plan: GLYCOSYLATED HEMOGLOBIN (A1C) Plan of care, desired health behaviors, goals,& medication discussed with patient and educational resources and self management tools provided as appropriate. Patient/family/guardian voices understanding. Patient verbalized understanding & agrees to plan of care. Barriers to care: none Ability to manage care: good Return in about 3 months (around 02/23/2019) for Memory Lab follow-up/ReCODE protocol follow-up. Scribe's Attestation I, Diana Patel , am scribing for, and in the presence of, Claudette Kidd MD who performed the services described here-in. Diana Patel, November 23, 2018, 3:35 PM Physician's Attestation I, Claudette Kidd MD, personally performed the services described in this documentation , asscribed by, Diana Patel in my presence and it is both accurate and complete. Claudette Kidd MD November 28, 2018, 3:56 PM documented in this encounter Plan of Treatment Date Type Specialty Care Team Description 02/24/2019 Office Visit Internal Medicine Claudette Kidd MD [address] [place] [address] [address] [phone] Name Type Priority Associated Diagnoses Order Schedule HIGH SENSITIVITY CRP LAB Routine Other specified Expected: health status 02/28/2019 Memory loss (Approximate), Expires: 11/29/2019 HOMOCYSTEINE LAB Routine Memory loss Expected: 02/28/2019 (Approximate), Expires: 11/29/2019 VITAMIN B6, PLASMA LAB Routine Memory loss Expected: Other specified 02/28/2019 health status (Approximate), Abnormal levels of Expires: other serum enzymes 11/29/2019 VITAMIN B12, LEVEL LAB Routine Memory loss Expected: 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 METABOLIC PANEL (32706) LAB Routine Memory loss Expected: 02/28/2019 (Approximate), Expires: 11/29/2019 GLYCOSYLATED HEMOGLOBIN (A1C) LAB Routine Abnormal finding of Expected: blood chemistry 02/28/2019 Memory loss (Approximate), Expires: 11/29/2019 INSULIN, LEVEL LAB Routine Memory loss Expected: 02/28/2019 (Approximate), Expires: 11/29/2019 LIPID PANEL (61254)(TOTAL LAB Routine Memory loss Expected: CHOLESTEROL, TRIGLYCERIDES, HDL) Hypertriglyceridemia 02/28/2019 (Approximate), Expires: 11/29/2019 DEHYDROEPIANDROSTERONE SULFATE LAB Routine Memory loss Expected: 02/28/2019 (Approximate), Expires: 11/29/2019 CORTISOL AM LAB Routine Memory loss Expected: 02/28/2019 (Approximate), Expires: 11/29/2019 ESTRADIOL, LEVEL LAB Routine Memory loss Expected: 02/28/2019 (Approximate), Expires: 11/29/2019 PROGESTERONE, LEVEL LAB Routine Memory loss Expected: 02/28/2019 (Approximate), Expires: 11/29/2019 THYROID STIMULATING HORMONE LAB Routine Memory loss Expected: 02/28/2019 (Approximate), Expires: 11/29/2019 FREE T4 LAB Routine Memory loss Expected: 02/28/2019 (Approximate), Expires: 11/29/2019 FREE T3 LAB Routine Memory loss Expected: 02/28/2019 (Approximate), Expires: 11/29/2019 ZINC, SERUM LAB Routine Memory loss Expected: 02/28/2019 (Approximate), Expires: 11/29/2019 COPPER, SERUM LAB Routine Memory loss Expected: 02/28/2019 (Approximate), Expires: 11/29/2019 Health Maintenance Due Date Last Done Comments [...] 06/09/2017 URINE MICROALBUMIN 06/15/2018 06/15/2017 INFLUENZA VACCINE (#1) 2018 03/03/2018, 03/03/2017 HgA1C 05/18/2019 11/15/2018, 08/20/2018, 05/20/2018, Additional history exists CREATININE (SERUM) 11/16/2019 11/15/2018, 08/20/2018, 05/20/2018, Additional history exists LDL-C 11/16/2019 11/15/2018, 08/20/2018, 05/20/2018, Additional history exists COLONOSCOPY 06/28/2027 Postponed from 10/28/1993 (Alternative Guidelines) documented as of this encounter Results Not on filedocumented in this encounter Visit Diagnoses Diagnosis Memory loss - Primary Bilateral foot pain Pain in limb Essential hypertension Unspecified essential hypertension Skin lesion of face Unspecified disorder of skin and subcutaneous tissue Sleep difficulties Sleep disturbance, unspecified 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
--- OUTSIDE RECORDS SUMMARY | 2019-04-05 22:35 | XMS REPORT | Summary of Care ---
:1945 Author Organization [facility] Address [address] [place] [address] Care Team Providers Name Role Phone Claudette Kidd MD Primary Care Provider Valeriano Mckeon MD Unavailable Encounter Details Date Type Department Care Team Description 11/23/2018 Orders Only [facility] Doctor Unassigned, No [address] [facility] [place] [address] [address] [place] [address] Allergies Active Allergy Reactions Severity Noted Date Comments Amitriptyline Hcl Hallucinations 09/22/2016 Baclofen Hallucinations 09/22/2016 Docusate Sodium Hallucinations 09/22/2016 Furosemide Hallucinations 09/22/2016 Gabapentin Hallucinations 09/22/2016 Hydrocodone Bitartrate Dizziness 09/22/2016 Pregabalin Hallucinations 06/09/2017 Meloxicam Hallucinations 09/22/2016 Potassium Gluconate Hallucinations 09/22/2016 Tramadol Hcl Hallucinations 09/22/2016 documented as of this encounter (statuses as of 11/23/2018) Medications Medication Sig Dispensed Refills Start Date [...] as of this encounter (statuses as of 11/23/2018) Active Problems Problem Noted Date Occasional tremors 09/22/2016 Essential hypertension 09/22/2016 Glaucoma, unspecified glaucoma, unspecified laterality 09/22/2016 Memory loss 09/22/2016 Hyperlipidemia, unspecified hyperlipidemia type 09/22/2016 Type 2 diabetes mellitus without complication, without long-term current 09/22 use of insulin documented as of this encounter (statuses as of 11/23/2018) Immunizations Name Administration Dates Next Due Influenza [...] filedocumented in this encounter Plan of Treatment Health Maintenance Due Date Last Done Comments [...] Procedure Name Priority Date/Time Associated Diagnosis Comments NO SHOW OR MISSED Routine 11/23/2018 3:03 PM APPOINTMENT POLICY CDT ACKNOWLEDGEMENT documented in this encounter Results Not on filedocumented in this encounter Insurance Payer Benefit Plan Subscriber ID Effective Dates Phone Address Type / Group [employer] - CHOICE CARE [id number] 2016-Presen Medicare Adv MANAGED t PPO MEDICARE documented as of this encounter
--- OUTSIDE RECORDS SUMMARY | 2019-04-05 22:35 | XMS REPORT | Summary of Care ---
:1945 Author Organization [facility] Address [address] [place] [address] Care Team Providers Name Role Phone Claudette Kidd MD Primary Care Provider Valeriano Mckeon MD Unavailable Reason for Visit Reason Comments Follow-up memory lab review LAB Encounter Details Date Type Department Care Team Description 11/23/2018 Office Visit [facility] Pediatric Bernabe, Memory loss ( Primary Dx); and Adult Primary Claudette Calhoun MD Bilateral foot pain; [address] Essential hypertension; [address] [place] [address], [place] [address] Skin lesion of face; [address] [place] [address] Sleep difficulties; [place], [place] [phone] 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 MISC) cholecalciferol, vitamin 1,000 mg 0 [...] tablespoon 1,360 Swordfish, cooked, 3 ounces 566 [place] (sockeye), cooked, 3 ounces 447 Tuna fish, canned in water, drained, 3 ounces 154 [place] juice fortified with vitamin D, 1 cup [...] (vitamin D is found in yolk) 41 Bmeje-su-uhr cereal, fortified with 10% of the DV for vitamin D, 0.75-1 cup ( more heavily fortified cereals might provide more of the DV) 40 Cheese, Serbian, 1 ounce 6 * IUs=International Units. DV=Daily [...] has improved. Zinc and copper levels: ok [place] Cognitive Assessment score 11/23/2018 : did not [...] she likes crossword puzzles. Medications reviewed in [employer], past medical history and social history and [...] Pleasant. Vitals reviewed. Results: labs reviewed in [employer] EMR. Education & Visit Time: this visit [...] Plan: family will work on these. 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
--- OUTSIDE RECORDS SUMMARY | 2019-04-05 22:36 | XMS REPORT | Summary of Care ---
:1945 Author Organization [facility] - Health Address [address] [place] [address] Care Team Providers Name Role Phone Claudette Kidd MD Primary Care Provider Valeriano Mckeon MD Unavailable Encounter Details Date Type Department Care Team Description 12/06/2018 Orders Only [facility] Doctor Unassigned, No [address] [facility] [place] [address] [address] [place] [address] Allergies Active Allergy Reactions Severity Noted Date Comments Amitriptyline Hcl Hallucinations 09/22/2016 Baclofen Hallucinations 09/22/2016 Codeine Anaphylaxis High 11/23/2018 Docusate Sodium Hallucinations 09/22/2016 Furosemide Hallucinations 09/22/2016 Gabapentin Hallucinations 09/22/2016 Hydrocodone Bitartrate Dizziness 09/22/2016 Pregabalin Hallucinations 06/09/2017 Meloxicam Hallucinations 09/22/2016 Potassium Gluconate Hallucinations 09/22/2016 Tramadol Hcl Hallucinations 09/22/2016 documented as of this encounter (statuses as of 12/07/2018) Medications Medication Sig Dispensed Refills Start Date End Date Status aspirin 325 mg Take 325 mg by 0 Active tabletIndications: mouth daily. Hyperlipidemia, unspecified hyperlipidemia type PHENAZOPYRIDINE HCL (AZO Take by mouth 0 [...] under 0 Active (B12 SL) the tongue. cinnamon bark (CINNAMON Take by mouth 0 Active ORAL) daily. thiamine (VITAMIN B-1) 100 Take 100 mg by 0 Active mg tablet mouth daily. HYDROCHLOROTHIAZIDE 50 mg TAKE ONE 90 tablet 3 10/03/2018 Active tabletIndications: TABLET BY Essential hypertension MOUTH DAILY pravastatin 10 mg TAKE ONE 90 tablet 0 10/01/2018 Active tabletIndications: TABLET BY Hyperlipidemia, MOUTH EVERY unspecified hyperlipidemia NIGHT AT type BEDTIME DONEPEZIL 5 mg TAKE ONE 90 tablet 3 10/23/2018 Active tabletIndications: Memory TABLET BY loss MOUTH EVERY NIGHT AT BEDTIME acetylcysteine 600 mg once 0 06/25/2018 Active (M-AGHJPR-L-CYSTEINE MISC) now. cholecalciferol, vitamin 1,000 mg once 0 06/25/2018 Active D3, (D3-2000 ORAL) now. pyridoxine, vitamin B6, 50 Take 25 mg by 0 06/25/2018 Active mg tablet mouth once now. documented as of this encounter (statuses as of 12/07/2018) Active Problems Problem Noted Date Occasional tremors 09/22/2016 Essential hypertension 09/22/2016 Glaucoma, unspecified glaucoma, unspecified laterality 09/22/2016 Memory loss 09/22/2016 Hyperlipidemia, unspecified hyperlipidemia type 09/22/2016 Type 2 diabetes mellitus without complication, without long-term current 09/22 use of insulin documented as of this encounter (statuses as of 12/07/2018) Immunizations Name Administration Dates Next Due Influenza [...] Office Visit Internal Medicine Claudette Kidd MD [address] [place] [address] Dr Ferguson [address] [place] [address], [place] [address] [phone] Health Maintenance Due Date Last Done Comments [...] Date/Time Associated Diagnosis Comments AGREEMENTS AUTHORIZATIONS Routine 12/06/2018 12:01 AM AND IRREVOCABLE CDT ASSIGNMENTS (FORM 2001) documented in this encounter Results Not on filedocumented in this encounter Insurance Payer Benefit Plan Subscriber ID Effective Dates Phone Address Type / Group [employer] - CHOICE CARE [id number] 2016-Presen Medicare Adv MANAGED t PPO MEDICARE documented as of this encounter
--- OUTSIDE RECORDS SUMMARY | 2019-04-05 22:36 | XMS REPORT | Summary of Care ---
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 Visit [facility] Health Professional Claudette Kidd MD [address] [place] [address] [address] [place] [address] Arrived Office Building 2, [facility] Professional Office Building [address] [place] [address] , [address] [place] [address] Allergies Active Allergy Reactions Severity Noted Date Comments Amitriptyline Hcl Hallucinations 09/22/2016 Baclofen Hallucinations 09/22/2016 Codeine Anaphylaxis High 11/23/2018 Docusate Sodium Hallucinations 09/22/2016 Furosemide Hallucinations 09/22/2016 Gabapentin Hallucinations 09/22/2016 Hydrocodone Bitartrate Dizziness 09/22/2016 Pregabalin Hallucinations 06/09/2017 Meloxicam Hallucinations 09/22/2016 Potassium Gluconate Hallucinations 09/22/2016 Tramadol Hcl Hallucinations 09/22/2016 documented as of this encounter (statuses as of 12/06/2018) Medications Medication Sig Dispensed Refills Start Date [...] acetylcysteine 600 mg once 0 06/25/2018 Active (F-SLAEFK-A-CYSTEINE MISC) now. cholecalciferol, vitamin 1,000 mg once 0 06/25/2018 Active D3, (D3-2000 ORAL) now. pyridoxine, vitamin B6, 50 Take 25 mg by 0 06/25/2018 Active mg tablet mouth once now. documented as of this encounter (statuses as of 12/06/2018) Active Problems Problem Noted Date Occasional tremors 09/22/2016 Essential hypertension 09/22/2016 Glaucoma, unspecified glaucoma, unspecified laterality 09/22/2016 Memory loss 09/22/2016 Hyperlipidemia, unspecified hyperlipidemia type 09/22/2016 Type 2 diabetes mellitus without complication, without long-term current 09/22 use of insulin documented as of this encounter (statuses as of 12/06/2018) Immunizations Name Administration Dates Next Due Influenza [...] Office Visit Internal Medicine Claudette Kidd MD [address] [place] [address] [place] [address] [phone] Health Maintenance Due Date Last Done Comments [...] Type / Group [employer] - CHOICE CARE [id number] 2016-Presen Medicare Adv MANAGED t PPO MEDICARE documented as of this encounter
--- OUTSIDE RECORDS SUMMARY | 2019-04-05 22:36 | XMS REPORT | Summary of Care ---
:1945 Author Organization [facility] - Health Address [address] [place] [address] Care Team Providers Name Role Phone Claudette Kidd MD Primary Care Provider Valeriano Mckeon MD Unavailable Reason for Visit Reason Comments Orders Encounter Details Date Type Department Care Team Description 12/06/2018 Telephone [facility] Pediatric and Claudette Kidd Orders Adult Primary Care- [address] [place] [address] [place] [address] Allergies Active Allergy Reactions Severity Noted Date [...] acetylcysteine 600 mg once 0 06/25/2018 Active (C-WHQWCH-W-CYSTEINE MISC) now. cholecalciferol, vitamin 1,000 mg once [...] Office Visit Internal Medicine Claudette Kidd MD [address] [place] [address] Dr Ferguson [address] [place] [address] [phone] Health Maintenance Due Date Last Done Comments [...] Type / Group [employer] - CHOICE CARE [id number] 2016-Presen Medicare Adv MANAGED t PPO MEDICARE documented as of this encounter
[2019-04-05] MEDS ORDERED: FENTANYL CITR 100 MCG/2 ML ONE (22:59)
[2019-04-05] MEDS ORDERED: ONDANSETRON 4 MG/2 ML VIAL ONE (23:00)
[2019-04-05] MEDS ORDERED: NA CHLORIDE 0.9% 500 ML ONE (23:00)
--- NOTE | 2019-04-05 23:02 | RAD REPORT ---
EXAM DESCRIPTION: RAD - Chest Single View - 04/05/2019 10:51 pm CLINICAL HISTORY: CHEST PAIN Chest pain. COMPARISON: Chest Single View dated 09/26/2018 FINDINGS: Portable technique limits examination quality. The lungs are grossly clear. The heart is mildly enlarged in size. No displaced fractures. IMPRESSION: No acute intrathoracic process suspected.
--- NOTE | 2019-04-05 23:03 | ER ---
Nurse's Notes [facility] Name: July Burton Age: 73 yrs Sex: Female : 1945 Arrival Date: 04/05/2019 Time: 22:33 Bed 5 Private MD: Diagnosis: Chest pain, unspecified;Essential (primary) hypertension;Dyspnea, unspecified Presentation: 04/05 22:41 Presenting complaint: states: she started complaining of chest pain at around rv 830pm. I gave her 2 tylenol. Transition of care: patient was not received from another setting of care. Onset of symptoms was April 05, 2019 at 20:30. Risk Assessment: Do you want to hurt yourself or someone else? Patient reports no desire to harm self or others. Initial Sepsis Screen: Does the patient meet any 2 criteria? No. Patient's initial sepsis screen is negative. Does the patient have a suspected source of infection? No. Patient's initial sepsis screen is negative. Care prior to arrival: None. 22:41 Method Of Arrival: Wheelchair rv 22:41 Acuity: MARCUS 3 rv Triage Assessment: 22:43 General: Appears ill, Behavior is calm, cooperative. Pain: Complains of pain in chest. rv Neuro: Level of Consciousness is awake, alert, obeys commands, Oriented to person, place. Cardiovascular: Patient's skin is warm and dry. Cardiovascular: Chest pain began 2 hours prior to arrival. Respiratory: Airway is patent. GI: Abdomen is flat. Derm: Skin is intact. Historical: - Allergies: 22:43 No Known Allergies; rv - Home Meds: 22:43 Aspirin Oral [Active]; donepezil 5 mg Oral tab 1 tab once daily [Active]; rv - PMHx: 22:43 Glaucoma; Hyperlipidemia; Hypertension; Alzheimers; Dementia; rv - PSHx: 22:43 Unable to obtain; rv - Immunization history:: Adult Immunizations up to date. - Social history:: Smoking status: Patient/guardian denies using tobacco. - Ebola Screening: : No symptoms or risks identified at this time. - Family history:: not pertinent. Screenin:45 Abuse screen: Denies threats or abuse. Nutritional screening: No deficits noted. jb4 Tuberculosis screening: No symptoms or risk factors identified. Fall Risk IV access (20 points). Total Negro Fall Scale indicates No Risk (0-24 pts). Assessment: 22:45 General: Appears in no apparent distress. uncomfortable, Behavior is calm, cooperative. jb4 Pain: Complains of pain in anterior aspect of left upper chest Pain does not radiate. Pain currently is 10 out of 10 on a pain scale. Quality of pain is described as pressure, Pain began 2 hours ago. Also complains of shortness of breath. Neuro: Level of Consciousness is awake, alert, obeys commands, Oriented to person, place, time, situation. Cardiovascular: Heart tones S1 S2 present Patient's skin is warm and dry. Respiratory: Airway is patent Respiratory effort is even, unlabored, Respiratory pattern is regular, symmetrical, Breath sounds are clear bilaterally. GI: No signs and/or symptoms were reported involving the gastrointestinal system. : No signs and/or symptoms were reported regarding the genitourinary system. EENT: No signs and/or symptoms were reported regarding the EENT system. Derm: Skin is intact, Skin is pink, warm \T\ dry. 22:45 Musculoskeletal: Circulation, motion, and sensation intact. Range of motion: intact in jb4 all extremities. 23:30 Reassessment: Patient appears in no apparent distress at this time. Patient and/or jb4 family updated on plan of care and expected duration. Pain level reassessed. Patient is alert, oriented x 3, equal unlabored respirations, skin warm/dry/pink. PT reports pain has decreased from 10/10 to 3/10 Patient states feeling better. 04/06 00:24 Reassessment: Patient appears in no apparent distress at this time. Patient and/or jb4 family updated on plan of care and expected duration. Pain level reassessed. Patient is alert, oriented x 3, equal unlabored respirations, skin warm/dry/pink. Pt to CT. 01:30 Reassessment: Patient appears in no apparent distress at this time. Patient and/or jb4 family updated on plan of care and expected duration. Pain level reassessed. Patient is alert, oriented x 3, equal unlabored respirations, skin warm/dry/pink. 02:24 Reassessment: Patient appears in no apparent distress at this time. Patient and/or jb4 family updated on plan of care and expected duration. Pain level reassessed. Patient is alert, oriented x 3, equal unlabored respirations, skin warm/dry/pink. PT given an ICE pack for right shoulder for pain. Vital Signs: 04/05 22:42 BP 149 / 55; Pulse 73; Resp 19; Temp 98.4; Pulse Ox 100% ; Weight 90.72 kg (R); rv 23:30 BP 98 / 59; Pulse 62; Resp 13; Pulse Ox 99% on R/A; Pain 3/10; jb4 04/06 00:00 BP 123 / 68; Pulse 65; Resp 13; Pulse Ox 100% on R/A; jb4 01:45 BP 138 / 83; Pulse 75; Resp 16; Pulse Ox 100% on R/A; jb4 ED Course: 04/05 22:33 Patient arrived in ED. ds1 22:39 Kevin Escalera, RN is Primary Nurse. jb4 22:42 Triage completed. rv 22:44 Arm band placed on Patient placed in the treatment room, on a stretcher, Patient rv notified of wait time. 22:45 Patient has correct armband on for positive identification. Bed in low position. Call jb4 light in reach. Side rails up X 1. marble ceiling installer on. Pulse ox on. NIBP on. 22:45 Patient maintains SpO2 saturation greater than 95% on room air. jb4 22:49 Raad Cruz MD is Attending Physician. [facility] 22:51 XRAY Chest (1 view) In Process Unspecified. EDMS 23:01 Sohail Escoto MD is Hospitalizing Provider. [facility] 23:02 Initial lab(s) drawn, by co, sent to lab. EKG done, by ED staff, reviewed by Raad lt1 Anthony MARK. Inserted saline lock: 22 gauge in left antecubital area, using aseptic technique. 23:12 Radiology exam delayed due to lab results not completed at this time. (BUN/Creatinine). nj 04/06 00:06 No provider procedures requiring assistance completed. Patient admitted, IV remains in jb4 place. Administered Medications: 04/05 23:00 Drug: NS 0.9% 500 ml Route: IV; Rate: bolus; Site: left antecubital; jb4 23:30 Follow up: Response: No adverse reaction; IV Status: Completed infusion; IV Intake: jb4 500ml 23:03 Drug: fentaNYL (PF) 25 mcg Route: IVP; Rate: 25 mcg/min; Site: left antecubital; 23:30 Follow up: Response: No adverse reaction; Pain is decreased [facility] 23:03 Drug: Zofran 4 mg Route: IVP; Rate: 4 mg/min; Site: left antecubital; 23:30 Follow up: Response: No adverse reaction [facility] 23:04 Drug: NS 0.9% 1000 ml Route: IV; Rate: 125 ml/hr; Site: left antecubital; Delivery: fc Primary tubing; 04/06 01:04 Follow up: Response: No adverse reaction; IV Status: Infusion continued upon admission [facility] 04/05 23:23 Drug: Lovenox 1 mg/kg Route: Sub-Q; Site: right lower abdomen; [facility] 04/06 00:25 Follow up: Response: No adverse reaction [facility] 04/05 23:23 Drug: Pepcid 20 mg Route: IVP; Site: left antecubital; jb4 04/06 00:25 Follow up: Response: No adverse reaction [facility] 04/05 23:24 Drug: Aspirin 162 mg Route: PO; 4 04/06 00:25 Follow up: Response: No adverse reaction [facility] 02:06 Drug: PlaVIX 300 mg Route: PO; 4 02:12 Follow up: Response: No adverse reaction [facility] 02:12 Not Given (Physician Discretion): fentaNYL (PF) 25 mcg IVP once; RASS on ADMIN: jb4 Combtv4, Very Agttd3, Agttd2, Rstlss1, AlertClm0, Drwsy-1, Lt Sdtn-2, Mod Sdtn-3, Dp Sdtn-4, UnArsble-5 Intake: 04/05 23:30 IV: 500ml; Total: 500ml. jb4 Outcome: 23:02 Decision to Hospitalize by Provider. [facility] 04/06 02:24 Admitted to Med/surg accompanied by nurse, accompanied by tech, via stretcher, room jb4 229, with chart. Condition: stable Discharge instructions given to patient, family, Instructed on the need for admit, Demonstrated understanding of instructions. 02:26 Patient left the ED. jb4 Signatures: Dispatcher [employer] Raad Rutherford MD MD cha Chretien, Felicia, RN RN Emely Adhikari ds1 Jw, Kevin, Sammy Loyd RN, Ronaldo RN Sofi Lin lt1 Corrections: (The following items were deleted from the chart) 04/05 23: 22:35 General: Appears in no apparent distress. uncomfortable, Behavior is calm, jb4 cooperative, jb4 22:35 Pain: Complains of pain in anterior aspect of left upper chest Pain does not jb4 radiate. Pain currently is 10 out of 10 on a pain scale. Quality of pain is described as pressure, Also complains of shortness of breath, jb4 22:35 Neuro: Level of Consciousness is awake, alert, obeys commands, Oriented to jb4 person, place, time, situation, jb4 22:35 Cardiovascular: Heart tones S1 S2 present Patient's skin is warm and dry. jb4 jb4 :47 22:35 Respiratory: Airway is patent Respiratory effort is even, unlabored, Respiratory jb4 pattern is regular, symmetrical, Breath sounds are clear bilaterally. jb4 22:35 GI: No signs and/or symptoms were reported involving the gastrointestinal system. jb4 jb4 22:35 : No signs and/or symptoms were reported regarding the genitourinary system. jb4jb4 :47 22:35 EENT: No signs and/or symptoms were reported regarding the EENT system. jb4 jb4 :47 22:35 Derm: Skin is intact, Skin is pink, warm \T\ dry. jb4 jb4 :47 22:35 Musculoskeletal: Circulation, motion, and sensation intact. Range of motion: jb4 intact in all extremities, jb4 04/06 00:05 04/05 22:45 Pain: Complains of pain in anterior aspect of left upper chest Pain does jb4 not radiate. Pain currently is 10 out of 10 on a pain scale. Quality of pain is described as pressure, Also complains of shortness of breath, jb4
--- NOTE | 2019-04-05 23:04 | EDPHYS ---
Physician Documentation [facility] Name: July Burton Age: 73 yrs Sex: Female : 1945 Arrival Date: 04/05/2019 Time: 22:33 Bed 5 Private MD: ED Physician Raad Cruz HPI: 04/05 22:58 This 73 yrs old Female presents to ER via Wheelchair with complaints of Chest tash Pain. 22:58 The patient or guardian reports chest pain that is located primarily in the substernal tash area, anterior chest wall, left. Onset: today. The pain does not radiate. Associated signs and symptoms: Pertinent positives: dizziness, shortness of breath. The chest pain is described as a heaviness, a pressure. Modifying factors: The symptoms are alleviated by remaining still, the symptoms are aggravated by breathing, deep breath, palpation of area, twisting torso. Severity of pain: At its worst the pain was moderate in the emergency department the pain is unchanged. The patient has not experienced similar symptoms in the past. Historical: - Allergies: 22:43 No Known Allergies; rv - Home Meds: 22:43 Aspirin Oral [Active]; donepezil 5 mg Oral tab 1 tab once daily [Active]; rv - PMHx: 22:43 Glaucoma; Hyperlipidemia; Hypertension; Alzheimers; Dementia; rv - PSHx: 22:43 Unable to obtain; rv - Immunization history:: Adult Immunizations up to date. - Social history:: Smoking status: Patient/guardian denies using tobacco. - Ebola Screening: : No symptoms or risks identified at this time. - Family history:: not pertinent. ROS: 22:58 Constitutional: Negative for fever, chills, and weight loss, Eyes: Negative for injury, tash pain, redness, and discharge, ENT: Negative for injury, pain, and discharge, Neck: Negative for injury, pain, and swelling, Abdomen/GI: Negative for abdominal pain, nausea, vomiting, diarrhea, and constipation, Back: Negative for injury and pain, : Negative for injury, bleeding, discharge, and swelling, MS/Extremity: Negative for injury and deformity, Skin: Negative for injury, rash, and discoloration, Neuro: Negative for headache, weakness, numbness, tingling, and seizure, Psych: Negative for depression, anxiety, suicide ideation, homicidal ideation, and hallucinations, Allergy/Immunology: Negative for hives, rash, and allergies, Endocrine: Negative for neck swelling, polydipsia, polyuria, polyphagia, and marked weight changes, Hematologic/Lymphatic: Negative for swollen nodes, abnormal bleeding, and unusual bruising. 22:58 Cardiovascular: Positive for chest pain. 22:58 Respiratory: Positive for shortness of breath, at rest. Exam: 22:58 Constitutional: This is a well developed, well nourished patient who is awake, alert, tash and in no acute distress. Head/Face: Normocephalic, atraumatic. Eyes: Pupils equal round and reactive to light, extra-ocular motions intact. Lids and lashes normal. Conjunctiva and sclera are non-icteric and not injected. Cornea within normal limits. Periorbital areas with no swelling, redness, or edema. ENT: Nares patent. No nasal discharge, no septal abnormalities noted. Tympanic membranes are normal and external auditory canals are clear. Oropharynx with no redness, swelling, or masses, exudates, or evidence of obstruction, uvula midline. Mucous membranes moist. Neck: Trachea midline, no thyromegaly or masses palpated, and no cervical lymphadenopathy. Supple, full range of motion without nuchal rigidity, or vertebral point tenderness. No Meningismus. Chest/axilla: Normal chest wall appearance and motion. Nontender with no deformity. No lesions are appreciated. Respiratory: Lungs have equal breath sounds bilaterally, clear to auscultation and percussion. No rales, rhonchi or wheezes noted. No increased work of breathing, no retractions or nasal flaring. Abdomen/GI: Soft, non-tender, with normal bowel sounds. No distension or tympany. No guarding or rebound. No evidence of tenderness throughout. Back: No spinal tenderness. No costovertebral tenderness. Full range of motion. Female : Normal external genitalia. Skin: Warm, dry with normal turgor. Normal color with no rashes, no lesions, and no evidence of cellulitis. MS/ Extremity: Pulses equal, no cyanosis. Neurovascular intact. Full, normal range of motion. Neuro: Awake and alert, GCS 15, oriented to person, place, time, and situation. Cranial nerves II-XII grossly intact. Motor strength 5/5 in all extremities. Sensory grossly intact. Cerebellar exam normal. Normal gait. Psych: Awake, alert, with orientation to person, place and time. Behavior, mood, and affect are within normal limits. 22:58 Cardiovascular: Rate: normal, Rhythm: regular, Pulses: Pulses are 4+ in bilateral radial, brachial, femoral, popliteal, posterior tibial and and dorsalis pedis arteries.. Heart sounds: normal, Edema: is not appreciated, JVD: is not appreciated. Vital Signs: 22:42 BP 149 / 55; Pulse 73; Resp 19; Temp 98.4; Pulse Ox 100% ; Weight 90.72 kg (R); rv 23:30 BP 98 / 59; Pulse 62; Resp 13; Pulse Ox 99% on R/A; Pain 3/10; jb4 04/06 00:00 BP 123 / 68; Pulse 65; Resp 13; Pulse Ox 100% on R/A; jb4 01:45 BP 138 / 83; Pulse 75; Resp 16; Pulse Ox 100% on R/A; jb4 MDM: 04/05 22:49 Patient medically screened. [facility] 23:00 Data reviewed: vital signs, nurses notes, lab test result(s), EKG, radiologic studies, [facility] CT scan, plain films. 04/05 22:41 Order name: Basic Metabolic Panel; Complete Time: 23:59 fc 04/05 22:41 Order name: CBC with Diff 04/05 22:41 Order name: LFT's; Complete Time: 23:59 04/05 22:41 Order name: Magnesium; Complete Time: 23:59 04/05 22:41 Order name: NT PRO-BNP; Complete Time: 23:59 04/05 22:41 Order name: PT-INR; Complete Time: 23:59 04/05 22:41 Order name: Troponin (emerg Dept Use Only); Complete Time: 23:59 fc 04/05 23:13 Order name: Lipase; Complete Time: 23:59 EDMS 04/05 23:28 Order name: CBC Smear Scan EDSC 04/05 23:39 Order name: CBC with Automated Diff EDMS 04/05 23:39 Order name: CBC with Automated Diff EDMS 04/05 23:39 Order name: CKMB Creatine Kinase MB EDSC 04/05 23:39 Order name: CKMB Creatine Kinase MB EDSC 04/05 22:41 Order name: XRAY Chest (1 view); Complete Time: 23:59 04/05 22:58 Order name: CT Chest For PE Angio tash 04/05 23:39 Order name: CKMB Creatine Kinase MB [facility] 04/05 23:39 Order name: CKMB Creatine Kinase MB [facility] 04/05 23:39 Order name: Comprehensive Metabolic Panel [facility] 04/05 23:39 Order name: Comprehensive Metabolic Panel [facility] 04/05 23:39 Order name: Lipid Profile [facility] 04/05 23:39 Order name: Lipid Profile [facility] 04/05 23:39 Order name: Magnesium [facility] 04/05 23:39 Order name: Magnesium [facility] 04/05 23:39 Order name: Phosphorus [facility] 04/05 23:39 Order name: Phosphorus [facility] 04/05 23:39 Order name: Troponin I [facility] 04/05 23:40 Order name: Troponin I [facility] 04/05 23:40 Order name: Troponin I [facility] 04/05 23:40 Order name: Troponin I [facility] 04/05 22:41 Order name: EKG; Complete Time: 22:42 04/05 22:41 Order name: Cardiac monitoring; Complete Time: 22:55 04/05 22:41 Order name: EKG - Nurse/Tech; Complete Time: 22:55 04/05 22:41 Order name: IV Saline Lock; Complete Time: 23:01 04/05 22:41 Order name: Labs collected and sent; Complete Time: 23:01 04/05 22:41 Order name: O2 Per Protocol; Complete Time: 22:55 04/05 22:41 Order name: O2 Sat Monitoring; Complete Time: 22:55 04/05 23:39 Order name: CONS Physician Consult [facility] 04/05 23:39 Order name: Heart Healthy EDSC Administered Medications: 23:00 Drug: NS 0.9% 500 ml Route: IV; Rate: bolus; Site: left antecubital; 4 23:30 Follow up: Response: No adverse reaction; IV Status: Completed infusion; IV Intake: jb4 500ml 23:03 Drug: fentaNYL (PF) 25 mcg Route: IVP; Rate: 25 mcg/min; Site: left antecubital; 23:30 Follow up: Response: No adverse reaction; Pain is decreased jb4 23:03 Drug: Zofran 4 mg Route: IVP; Rate: 4 mg/min; Site: left antecubital; 23:30 Follow up: Response: No adverse reaction jb4 23:04 Drug: NS 0.9% 1000 ml Route: IV; Rate: 125 ml/hr; Site: left antecubital; Delivery: fc Primary tubing; 04/06 01:04 Follow up: Response: No adverse reaction; IV Status: Infusion continued upon admission jb4 04/05 23:23 Drug: Lovenox 1 mg/kg Route: Sub-Q; Site: right lower abdomen; jb4 04/06 00:25 Follow up: Response: No adverse reaction jb4 04/05 23:23 Drug: Pepcid 20 mg Route: IVP; Site: left antecubital; jb4 04/06 00:25 Follow up: Response: No adverse reaction jb4 04/05 23:24 Drug: Aspirin 162 mg Route: PO; jb4 04/06 00:25 Follow up: Response: No adverse reaction jb4 02:06 Drug: PlaVIX 300 mg Route: PO; jb4 02:12 Follow up: Response: No adverse reaction jb4 02:12 Not Given (Physician Discretion): fentaNYL (PF) 25 mcg IVP once; RASS on ADMIN: jb4 Combtv4, Very Agttd3, Agttd2, Rstlss1, AlertClm0, Drwsy-1, Lt Sdtn-2, Mod Sdtn-3, Dp Sdtn-4, UnArsble-5 Disposition: 04/05/19 23:02 Hospitalization ordered by Sohail Escoto for Inpatient Admission. Preliminary diagnosis are Chest pain, unspecified, Essential (primary) hypertension, Dyspnea, unspecified. - Bed requested for Telemetry/MedSurg (Inpatient). - Status is Inpatient Admission. jb4 - Condition is Fair. - Problem is new. - Symptoms have improved. UTI on Admission? No Signatures: Dispatcher [employer] EDJuli Dey RN RN mw Anderson, Corey, MD MD cha Chretien, Felicia, RN RN fc Bryson, James, RN RN jb4 John Rosenberg RN RN rv Corrections: (The following items were deleted from the chart) 04/05 23:12 22:58 LIPASE+C.LAB.BRZ ordered. EDMS EDMS 23:42 23:02 Hospitalization Ordered by Sohail Escoto MD for Inpatient Admission. Preliminary mw diagnosis is Chest pain, unspecified; Essential (primary) hypertension; Dyspnea, unspecified. Bed requested for Telemetry/MedSurg (Inpatient). Status is Inpatient Admission. Condition is Fair. Problem is new. Symptoms have improved. UTI on Admission? No. tash 23:44 23:42 04/05/2019 23:02 Hospitalization Ordered by Sohail Escoto MD for Inpatient mw Admission. Preliminary diagnosis is Chest pain, unspecified; Essential (primary) hypertension; Dyspnea, unspecified. Bed requested for Telemetry/MedSurg (Inpatient). Status is Inpatient Admission. Condition is Fair. Problem is new. Symptoms have improved. UTI on Admission? No. mw 04/06 02:26 04/05 23:44 04/05/2019 23:02 Hospitalization Ordered by Sohail Escoto MD for Inpatient jb4 Admission. Preliminary diagnosis is Chest pain, unspecified; Essential (primary) hypertension; Dyspnea, unspecified. Bed requested for Telemetry/MedSurg (Inpatient). Status is Inpatient Admission. Condition is Fair. Problem is new. Symptoms have improved. UTI on Admission? No. mw
[2019-04-05] MEDS ORDERED: ENOXAPARIN 80 MG/0.8 ML SQ ONE (23:13)
[2019-04-05] MEDS ORDERED: ASPIRIN 81 MG CHEWABLE TABLET ONE (23:13)
[2019-04-05] MEDS ORDERED: FAMOTIDINE 20 MG/2 ML VIAL IV ONE (23:14)
[2019-04-05] MEDS ORDERED: ENOXAPARIN 30 MG/0.3 ML SQ ONE (23:16)
[2019-04-05] MEDS ORDERED: ENOXAPARIN 60 MG/0.6 ML SQ ONE (23:17)
[2019-04-05 23:18] LABS: Absolute Lymphocytes (CBC) 1.8 K/uL (0.7-4.9); Basophils % 1.5 % (0-1.3); Hematocrit 40.4 % (36.0-45.0); Lymphocytes % 22.2 % (15.3-44.8); MPV 7.5 fL (7.6-11.3); Protime INR 1.04
[2019-04-05] MEDS ORDERED: ONDANSETRON 4 MG/2 ML VIAL IV PRN (23:32)
[2019-04-05] MEDS ORDERED: ACETAMINOPHEN 500 MG TAB PO PRN (23:32)
[2019-04-05 23:42] LABS: ALT/SGPT 38 U/L (12-78); AST/SGOT 22 U/L (15-37); Albumin 3.6 g/dL (3.4-5.0); Alkaline Phosphatase 48 U/L (45-117); BUN Blood Urea Nitrogen 18 mg/dL (7-18); Bicarbonate 27 mmol/L (21-32); Bilirubin Direct 0.1 mg/dL (0-0.2); Bilirubin Total 0.3 mg/dL (0.2-1.0); Glucose Level 111 mg/dL (74-106); Lipase 71 U/L (73-393); Magnesium 2.1 mg/dL (1.8-2.4); NT PRO-BNP 38 pg/mL (<450); Potassium 3.5 mmol/L (3.5-5.1); Protein, Total 7.2 g/dL (6.4-8.2); Sodium Level 135 mmol/L (136-145); Troponin (Emerg Dept Use Only) < 0.02 ng/mL (0.0-0.045)
--- NOTE | 2019-04-05 23:42 | P.HP ---
Certification for Inpatient Patient admitted to: Observation With expected LOS: <2 Midnights Patient will require the following post-hospital care: None Practitioner: I am a practitioner with admitting privileges, knowledge of patient current condition, hospital course, and medical plan of care. Services: Services provided to patient in accordance with Admission requirements found in Title 42 Section 412.3 of the Code of Federal Regulations Patient History Date of Service: 04/06/19 Reason for admission: Chest pain History of Present Illness: 73-year-old female with past medical history of hypertension, hyperlipidemia, dementia, GERD came to ER with chest discomfort which has been going on for the last 2 days and it has been slowly progressively worsening was brought to the ER. Pain is located in the retrosternal with radiation to the left side of the chest, not associated with any shortness of breath or diaphoresis. Denies any nausea vomiting and diarrhea. The pain is dull aching in character and 2/10 in severity at this time of the interview. The patient was assessed in the ER and was admitted for further management of chest pain to rule out ACS Home medications list reviewed: Yes - Past Medical/Surgical History Past Medical History: Reviewed- Non-Contributory -: Hypertension -: Hyperlipidemia -: Dementia Past Surgical History: Reviewed- Non-Contributory - Family History Family History: Reviewed- Non-Contributory - Social History Smoking Status: Never smoker Review of Systems 10-point ROS is otherwise unremarkable Physical Examination - Vital Signs Temperature: 98.5 F Blood Pressure: 142/55 Pulse: 76 Respirations: 18 - Physical Exam General: Alert, In no apparent distress, Oriented x3, Obese HEENT: Atraumatic, Normocephalic Neck: Supple, No Thyromegaly Respiratory: Clear to auscultation bilaterally, Normal air movement Cardiovascular: Normal pulses, Regular rate/rhythm Capillary refill: <2 Seconds Gastrointestinal: Soft and benign, W/out hepatosplenomegaly Musculoskeletal: No clubbing, No swelling, Swelling Integumentary: No rashes, No breakdown Neurological: Normal speech, Normal strength at 5/5 x4 extr Lymphatics: No axilla or inguinal lymphadenopathy Urinary: Other (No bladder distension) External genitalia: Deferred Rectal: Deferred - Studies Laboratory Data (last 24 hrs) 04/05/19 22:58: Lipase Cancelled 04/05/19 22:55: PT 12.2, INR 1.04 04/05/19 22:55: WBC 7.9, Hgb 13.5, Hct 40.4, Plt Count 550 H Assessment and Plan - Problems (Diagnosis) (1) Chest pain Current Visit: Yes Status: Acute (2) Hyperlipidemia Current Visit: Yes Status: Acute (3) Hypertension Current Visit: Yes Status: Acute (4) Lower extremity pain Current Visit: Yes Status: Acute (5) History of dementia Current Visit: Yes Status: Acute - Plan Chest pain to rule out ACS Hypertension Hyperlipidemia History of dementia Bilateral pedal edema Plan Monitor in telemetry Trend cardiac enzymes Antihypertensives titrated Continue all medications Start on aspirin and statin Will get a lipid panel and A1c Cardiology consult get Doppler of lower extremities to rule out DVT We also will get a CT chest PE protocol GI/DVT Prophylaxis Advanced directives full code - Advance Directives Does patient have a Living Will: No Does patient have a Durable POA for Healthcare: No Time Spent Managing Pts Care (In Minutes): 42
[2019-04-06] MEDS ORDERED: NA CHLORIDE 0.9% 1,000 ML ONE (00:37)
[2019-04-06 01:00] LABS: Platelet Estimate INCR
[2019-04-06 01:01] LABS: Anisocytosis 1+; Blood Morphology Comment NOTED (NOT SEEN); Ovalocytes 2+; Urine White Blood Cell Casts OK
[2019-04-06] MEDS ORDERED: CLOPIDOGREL 75 MG TABLET ONE (02:05)
[2019-04-06 02:30] VITALS: BMI 38.2
[2019-04-06 02:49] VITALS: O2SAT 100
[2019-04-06 03:53] LABS: CKMB Creatine Kinase MB 3.6 ng/mL (0.3-3.6); Troponin I < 0.02 ng/mL (0.0-0.045)
[2019-04-06 06:39] LABS: Absolute Lymphocytes (CBC) 1.7 K/uL (0.7-4.9); Basophils % 1.9 % (0-1.3); MPV 7.7 fL (7.6-11.3); RBC Red Blood Cell Count 4.57 M/uL (3.86-4.86)
[2019-04-06 06:44] LABS: Urine Appearance CLEAR; Urine Bilirubin NEGATIVE (NEG); Urine Blood NEGATIVE (NEG); Urine Color YELLOW; Urine Glucose NEGATIVE (NEG); Urine Protein NEGATIVE (NEG); Urine Specific Gravity >=1.030 (1.005-1.030); Urine Urobilinogen 0.2 mg/dL (0.2-1.0); Urine pH 5.5 (5.0-7.0)
[2019-04-06 06:57] LABS: Potassium 3.8 mmol/L (3.5-5.1)
[2019-04-06 06:58] LABS: Albumin 3.1 g/dL (3.4-5.0); Bilirubin Total 0.3 mg/dL (0.2-1.0); Phosphorus 3.2 mg/dL (2.5-4.9)
[2019-04-06 07:58] LABS: Urine Bacteria <20 /HPF (<20); Urine Culture Reflex Order REFLEXED; Urine RBC <5 /HPF (NONE SEEN)
[2019-04-06 08:47] LABS: CKMB Creatine Kinase MB 3.8 ng/mL (0.3-3.6); Troponin I < 0.02 ng/mL (0.0-0.045)
[2019-04-06] MEDS ORDERED: ASPIRIN EC 81 MG TAB PO SCH (09:00)
--- NOTE | 2019-04-06 11:19 | RAD REPORT ---
EXAM DESCRIPTION: CT chest angiography with intravenous contrast CLINICAL HISTORY: 73-year-old female with chest pain. TECHNIQUE: Following the administration of intravenous contrast, multiple high-resolution axial imag es of the chest were performed followed by sagittal and coronal reconstructed images. Coronal oblique MIP images were performed. The CT study is performed according to ALARA (as low as reasonably achiev able) or ALARA/IMAGE GENTLY, with automatic adjustment of mA and/or kV according to patient size. Performed on: 04/06/2019 at 12:39 AM COMPARISON: None FINDINGS: There is satisfactory opacification of the pulmonary arteries. However, due to spray art ifact, evaluation of the segmental and subsegmental pulmonary artery branches is limited on this exam ination for pulmonary emboli. The pulmonary artery trunk and main pulmonary arteries enhance homogene ously. No definite intra-arterial filling defects are identified in these vessels. The thoracic aorta is normal in caliber and contour without evidence of aneurysm or aortic dissection. There is no refl ux of contrast into the hepatic veins. The lungs are well expanded. There is patchy groundglass opacification bilaterally which could be rel ated to atelectasis, edema or possibly inflammatory changes. There are no pleural effusions. There is no pneumothorax. The heart is mildly enlarged. There is no pericardial effusion. The RV/LV ratio is within normal limi ts. There is no evidence of hilar, mediastinal or axillary lymphadenopathy. No acute osseous abnormality is identified. No acute abnormalities are identified in the visualized portions of the upper abdomen. IMPRESSION: 1. Although there is satisfactory opacification of the pulmonary arteries, spray artifac t results in degradation of image quality and limited evaluation of the segmental and subsegmental pu lmonary artery branches for evaluation of pulmonary emboli. The pulmonary artery trunk and main pulmo nary arteries are unremarkable. 2. Patchy groundglass opacification bilaterally which could be related to atelectasis, edema or possi dilcia inflammatory changes. 3. Mild cardiomegaly. Electronically signed by: Joy Loera DO 04/06/2019 1:12 AM HARDB[employer]ARD FACTORY WORKER Due to temporary technical issues with the PACS/Fluency reporting system, reports are being signed by the in house radiologist as a courtesy to ensure prompt reporting. The interpreting radiologist is f ully responsible for the content of the report.
--- NOTE | 2019-04-06 11:56 | RAD REPORT ---
EXAM DESCRIPTION: US - Extrem Venous W Compress Reggie - 04/06/2019 11:45 am CLINICAL HISTORY: DVT Bilateral leg edema and swelling. COMPARISON: No comparisons TECHNIQUE: Real-time sonographic interrogation of the left and right lower extremity deep venous sys tems was performed. FINDINGS: Normal compressibility, flow augmentation, phasic flow and spontaneous flow is identified in both the left and right lower extremity deep venous systems. IMPRESSION: No sonographic evidence of left or right lower extremity deep venous thrombosis.
[2019-04-06] MEDS ORDERED: PYRIDOXINE (VIT B6) 50 MG TAB PO SCH (12:00)
[2019-04-06] MEDS ORDERED: hydroCHLOROthiazide 25 MG TAB PO SCH (12:00)
[2019-04-06 12:57] VITALS: BP 109/59
[2019-04-06 14:56] VITALS: TEMP 97.3
--- NOTE | 2019-04-06 15:27 | DS ---
Consultants: Dr. Perez with Cardiology. Discharge Diagnoses: 1.Chest pain, acute coronary syndrome ruled out. 2.Mixed hyperlipidemia. 3.Essential hypertension, stable. 4.Lower extremity pain, resolved. 5.History of dementia, Alzheimer's type without behavioral disturbance. 6.Gastroesophageal reflux disease without esophagitis, stable. 7.Obesity, BMI of 38. Hospital Course: Patient is a 73-year-old female with past medical history of hypertension, hyperlip idemia, dementia, GERD, comes in with chest pain. Patient was admitted to the hospital for further e valuation and workup. Imaging studies including CT angio chest was negative for any major PE. There was some opacification of the pulmonary arteries by spray artifact, resulting in degradation of the image quality and limited evaluation of the segmental and subsegmental pulmonary artery branches. Ho wever, patient did not have any clinical signs or symptoms of PE, not have any shortness of breath. There was no tachycardia. Her CT scan did show some patchy ground-glass opacification and mild cardi omegaly. The patient's cardiac enzymes were negative. ACS was ruled out. She was seen by Dr. Larry hernandez, who recommended outpatient stress testing. Her lipid panel showed elevated triglyceride levels o f 216, cholesterol was 148. Family was at the bedside. Her treatment plan was explained. All quest ions were answered. Doppler study of the lower extremities did not show any DVT in either lower extr emity. Chest x-ray was clear. Patient was doing well. She did not have any further symptoms. She was 98% on room air, did not have any shortness of breath. She was able to ambulate. Patient was th en cleared for discharge and sent home in a stable condition. Activity: As tolerated. Medications: As per medication reconciliation list. Followup: Follow up with primary care physician in 2 to 3 days. Return to ER for worsening conditio n. Follow up with remotely piloted vehicle controller, Dr. Perez, in one week to have outpatient stress test scheduled. Diet: Heart healthy. Physical Examination: General: Awake, alert, oriented x3. Elderly female, obese. CV: S1, S2. Respiratory: Clear to auscultation bilaterally. Abdomen: Soft, nontender, nondistended. Positive bowel sounds. Extremities: No clubbing, cyanosis, or edema. Neurologic: Nonfocal. SA/MODL Voice ID: [id number] Report ID: [id number]
[2019-04-06 16:32] LABS: Troponin I < 0.02 ng/mL (0.0-0.045)
[2019-04-06] MEDS ORDERED: DONEPEZIL HCL 5 MG TAB PO SCH (21:00)
[2019-04-06] MEDS ORDERED: ATORVASTATIN 40 MG TAB PO SCH (21:00)
--- NOTE | 2019-04-07 08:11 | EKG ---
Test Date: 2019-04-05 Test Time: 22:52:41 Ore Charger: LMT MEASUREMENT RESULTS: Intervals: Rate: 79 DC: 176 QRSD: 86 QT: 414 QTc: 474 [place]: P: 72 DC: 176 QRS: -2 T: 22 INTERPRETIVE STATEMENTS: Normal sinus rhythm with sinus arrhythmia Low voltage QRS Borderline ECG Compared to ECG 04/05/2019 22:41:54 Atrial premature complex(es) no longer present Electronically Signed On 04-07-19 08:10:12 MANAGER PHP by Cleveland Perez
--- NOTE | 2019-04-07 08:12 | EKG ---
Test Date: 2019-04-05 Test Time: 22:41:54 Special Order Jeweler: LMT MEASUREMENT RESULTS: Intervals: Rate: 73 [place]: 186 QRSD: 92 QT: 410 QTc: 451 [place]: P: 65 [place]: 186 QRS: -4 T: 18 INTERPRETIVE STATEMENTS: Sinus rhythm with premature atrial complexes Low voltage QRS Borderline ECG Compared to ECG 09/26/2018 07:41:35 Atrial premature complex(es) now present Sinus bradycardia no longer present Electronically Signed On 04-07-19 08:10:14 FOUNDRY HAND by [place] Perez
[2019-04-07] MEDS ORDERED: HOME MED 1 EA UNK (Hydrochlorothiazide [Hydrochlorothiazide] 1 TAB) PO SCH (09:00)
[2019-04-07] MEDS ORDERED: PYRIDOXINE HCL PO SCH (09:00)
--- NOTE | 2019-04-07 15:13 | CON ---
Date of Consultation: 04/06/[address] Mcdermott on 04/05/2019. I saw the patient on 04/06/2019. Reason For Consultation: Chest pain. History Of Present Illness: Ms. Burton is a 73, has a history of dementia, hypertension, dyslipide joanne. She came in with atypical sharp stabbing chest pain over the left anterior wall of her chest. No nausea, vomiting, diaphoresis, PND, orthopnea, pedal edema, palpitations, or syncope. Symptoms we re not related to exertion. She did not have any nausea, vomiting, diaphoresis. Symptoms would last sometimes hours. Pain is sharp. By the time I saw her, she has already had a negative cardiac work up including normal EKG, normal chest x-ray, normal CT angiogram of the chest, normal venous Doppler. Past Medical History: As stated above. Allergies: NONE. Review of Systems: Negative. Social History: Negative. Family History: Negative. Medications: Aspirin, donepezil, Pravachol, and hydrochlorothiazide. Physical Examination: Vital Signs: Stable, afebrile. HEENT: Negative. Neck: Supple without any bruit, lymphadenopathy, JVD, or thyromegaly. Chest: Clear to auscultation and percussion. Cardiac: Revealed a regular rhythm and rate. No murmurs, gallops, or rubs. Abdomen: Benign. Extremities: Revealed no clubbing, cyanosis, or edema. Diagnostic Data: All stated earlier. Impression And Plan: 1.Atypical chest pain. 2.Hypertension. 3.Dyslipidemia. 4.Dementia. Ms. Burton's pain is very atypical. She has ruled out for a myocardial infarction. I think she ca n go home whenever it is okay with Dr. Mcdermott. I will make arrangements for her to have outpatient st ress test and an echocardiogram. She has multiple cardiac risk factors. Her blood pressure and chol esterol are well controlled. MELLO/ELADIA Voice ID: [id number] Report ID: [id number]
== END 2019-04-06 16:25 | disposition home or self-care (01) ==
LOC: ER 22:33 → ERHOLD 23:40 → 2ND 04-06 01:55
PROVIDERS: ADMIT Family Medicine; ATTEND Family Medicine
DX: R07.9 Chest pain, unspecified (principal); E78.2 Mixed hyperlipidemia; I10 Essential (primary) hypertension; M79.606 Pain in leg, unspecified; G30.9 Alzheimer's disease, unspecified; F02.80 Dementia in other diseases classified elsewhere, unspecified severity, without behavioral disturbance, psychotic disturbance, mood disturbance, and anxiety; K21.9 Gastro-esophageal reflux disease without esophagitis; E66.9 Obesity, unspecified; Z68.38 Body mass index [BMI] 38.0-38.9, adult
CPT/HCPCS: 96361; 93005 ×2; 87088; 85025 ×2; 81001; 87086; 80048; 36415; 83735 ×2; 84100; 85610; 80061; 80076; 84484 ×4; 82553 ×3; 83690; 80053; 83880; 71275; 71045; 93970; 96375; 96372; 96374; 99285; Q9967; J1650 ×2; J3010; J7040; J7030; J2405 ×2; G0378 ×2

== ENCOUNTER 2022-03-27 22:15 | Emergency (ER) | payer OTHER ==
--- OUTSIDE RECORDS SUMMARY | 2022-03-27 22:21 | XMS REPORT | Continuity of Care Document ---
:1945 Author Organization [facility] t Address [address] [place] [address] Care Team Providers Name Role Phone Derek Preciado MD Attending Clinician Robbie Mercado DO Attending Clinician Claudette Kidd MD Attending Clinician [phone], [facility] Attending Clinician Unavailable Doctor Unassigned, [place] Attending Clinician Unavailable Payers Payer Name Policy Type Policy Number Effective Date Expiration Date S ource Problems Condition Condition Condition Status Onset Resolution Last Treating Co mments Source Name Details Category Date Date Treatment Clinician Date Status Status Disease Active [facility] post post 6-15 Garceno endovenous endovenous 00:00: of radiofrequ radiofrequ 00 Me dicin ency ency e ablation ablation (RFA) of (RFA) of saphenous saphenous vein vein Venous Venous Disease Active [facility] insufficie insufficie 1-12 Co llege ncy ncy 00:00: Medicin e Occasional Occasional Disease Active U nivers tremors tremors 6-12 ity of 00:00: [address] Essential Essential Disease Active Uni vers hypertensi hypertensi 6-12 it y of on on 00:00: [address] Glaucoma, Glaucoma, Disease Active Uni vers unspecifie unspecifie 6-12 it y of d d 00:00: [place] glaucoma, glaucoma, 00 Medi jenny unspecifie unspecifie Br anch d d laterality laterality Memory Memory Disease Active Univers loss loss 6-12 ity of 00:00: [place] 00 Medical Branch Memory Memory Disease Active Univers loss loss 6-12 ity of 00:00: [place] 00 Medical Branch Hyperlipid Hyperlipid Disease Active U nivers emia, emia, -12 ity of unspecifie unspecifie [place] Medical hyperlipid hyperlipid Br anch emia type emia type Type 2 Type 2 Disease Active Univers diabetes diabetes 12 ity of mellitus mellitus 00:00: [place] without without 00 Medical complicati complicati Br anch on, on, without without long-term long-term current current use of use of insulin insulin Allergies, Adverse Reactions, Alerts Allergy Allergy Status Severity Reaction(s) Onset Inactive Treating Comm ents Source Name Type Date Date Clinician Codeine Propensi Active Anaphylaxis [facility] [place] ty to 11-23 ity of adverse 00:00: [place] reaction 00 Medical s Branch Codeine Propensi Active Swelling [facility] ty to 813 College adverse 00:00: of reaction 00 Medicin s to e drug Pregabal Propensi Active Hallucinatio [facility] in ty to ns 2-27 ity of adverse 00:00: [place] reaction 00 Medical s Branch Pregabal Propensi Active Hallucinatio [place] in ty to ns 2-27 College adverse 00:00: of reaction 00 Medicin s to e drug Tramadol Propensi Active Hallucinatio [facility] Hcl ty to ns 6-12 College adverse 00:00: of reaction 00 Medicin s to e drug Amitript Propensi Active Hallucinatio [place] yline ty to ns 6-12 College Hcl adverse 00:00: of reaction 00 Medicin s to e drug Baclofen Propensi Active Hallucinatio [facility] ty to ns 6-12 College adverse 00:00: of reaction 00 Medicin s to e drug Docusate Propensi Active Hallucinatio [place] Sodium ty to ns 6-12 College adverse 00:00: of reaction 00 Medicin s to e drug Furosemi Propensi Active Hallucinatio 2017-0 [place] de ty to ns 6-12 [facility] adverse 00:00: of reaction 00 Medicin s to e drug Gabapent Propensi Active Hallucinatio 2017-0 [place] in ty to ns 6-12 [facility] adverse 00:00: of reaction 00 Medicin s to e drug Hydrocod Propensi Active Other (See 2017-0 Dizzines [facility] one ty to Comments) 6-12 [facility] adverse 00:00: of reaction 00 Medicin s to e drug Meloxica Propensi Active Hallucinatio 2017-0 [place] m ty to ns 6-12 [facility] adverse 00:00: of reaction 00 Medicin s to e drug Potassiu Propensi Active Hallucinatio 2017-0 Univers m ty to ns 6-12 ity of Gluconat adverse 00:00: [place] e reaction 00 Medical s Branch Tramadol Propensi Active Hallucinatio 2017-0 Univers Hcl ty to ns 6-12 ity of adverse 00:00: [place] reaction 00 Medical s Branch Amitript Propensi Active Hallucinatio 2017-0 Univers yline ty to ns 6-12 ity of Hcl adverse 00:00: [place] reaction 00 Medical s Branch Baclofen Propensi Active Hallucinatio 2017-0 Univers ty to ns 6-12 ity of adverse 00:00: [place] reaction 00 Medical s Branch Docusate Propensi Active Hallucinatio 2017-0 Univers Sodium ty to ns 6-12 ity of adverse 00:00: [place] reaction 00 Medical s Branch Furosemi Propensi Active Hallucinatio 2017-0 Univers de ty to ns 6-12 ity of adverse 00:00: [place] reaction 00 Medical s Branch Gabapent Propensi Active Hallucinatio 2017-0 Univers in ty to ns 6-12 ity of adverse 00:00: [place] reaction 00 Medical s Branch Hydrocod Propensi Active Dizziness 2017-0 Uni vers one ty to 6-12 ity of Bitartra adverse 00:00: [place] te reaction 00 Medical s Branch Meloxica Propensi Active Hallucinatio 2017-0 Univers m ty to ns 6-12 ity of adverse 00:00: [place] reaction 00 Medical s Branch Potassiu Propensi Active Hallucinatio 2017-0 [place] m ty to ns 6-12 [facility] Gluconat adverse 00:00: of e reaction 00 Medicin s to e drug Social History Social Habit Start Date Stop Date Quantity Comments Source Exposure to Not sure [facility] Colleg e of SARS-CoV-2 (event) Medici ne Sex Assigned At [facility] Alcohol intake 2020-09-25 2020-09-25 Lifetime [facility] Col lege of 00:00:00 00:00:00 non-drinker Medicine (finding) Cigarettes smoked 2020-04-20 2020-04-20 [facility] of current (pack per 00:00:00 00:00:00 Medicin e day) - Reported Cigarette 2020-04-20 2020-04-20 [facility] of pack-years 00:00:00 00:00:00 Medicine Tobacco use and 2020-04-20 2020-04-20 Never used [facility] Co llege of exposure 00:00:00 00:00:00 Medicine Tobacco Comment 2016-09-22 2016-09-22 quit 1985 Universit y of 00:00:00 00:00:00 [facility] History of tobacco 1984-04-13 Smoker [facility] of use 00:00:00 Medicine Smoking Status Start Date Stop Date Source Former smoker 2020-04-20 00:00:00 2020-04-20 00:00:00 [facility] eva of Medicine Medications Ordered Filled Start Stop Current Ordering Indication Dosage Frequency Signature Comments Components Source Medication Medication Date Date Medication? Clinician (SIG) Name Name Multiple Yes 1{tbl} Take 1 [facility] Vitamin 6-11 Tablet by Garceno (MULTI-IRENE 10:09: mouth. of MIN) TABS 38 Medicin e [place]-3 Yes [facility] Fatty Acids 6-11 Garceno (FISH OIL) 10:09: of 1000 MG 38 Medicin CAPS e Multiple Yes 1{tbl} Take 1 [facility] Vitamin 1-08 Tablet by Garceno (MULTI-IRENE 18:16: mouth. of MIN) TABS 25 Medicin e [place]-3 Yes [facility] Fatty Acids 1-08 Garceno (FISH OIL) 18:16: of 1000 MG 25 Medicin CAPS e Multiple Yes 1{tbl} Take 1 [facility] Vitamin 1-08 Tablet by Garceno (MULTI-IRENE 18:16: mouth. of MIN) TABS 25 Medicin e [place]-3 Yes [facility] Fatty Acids - Garceno (FISH OIL) 18:16: of 1000 MG 25 Medicin CAPS e APPLE CIDER 2020- No Take by Benoit KENDALL OR 08 -08 mouth. Colleg e 18:16: 00:00 of 17 :00 Medicin e hydrochloro 2020-1 Yes daily. [facility] thiazide 2- College (HYDRODIURI 00:00: of L) 25 MG 00 Medicin tablet e hydrochloro 2020-1 Yes daily. [facility] thiazide 2 College (HYDRODIURI 00:00: of L) 25 MG 00 Medicin tablet e hydrochloro 2020-1 Yes daily. [facility] thiazide 2 College (HYDRODIURI 00:00: of L) 25 MG 00 Medicin tablet e hydroxyurea 2019-04 Yes [facility] (HYDREA) 2-14 Garceno 500 MG 00:00: of capsule 00 Medicin e hydroxyurea 2020 Yes [facility] (HYDREA) 2-14 [facility] 500 MG 00:00: of capsule 00 Medicin e hydroxyurea 2020- Yes [facility] (HYDREA) 2-14 Garceno 500 MG 00:00: of capsule 00 Medicin e pravastatin 2018-04 Yes [id number] TAKE ONE Univers 10 mg 0-03 TABLET BY ity of tablet 00:00: MOUTH [place] 00 EVERY Medical NIGHT AT Branch BEDTIME pravastatin 2018-04 Yes [id number] TAKE ONE Univers 10 mg 0-03 TABLET BY ity of tablet 00:00: MOUTH [place] 00 EVERY Medical NIGHT AT Branch BEDTIME pravastatin 2018-04 Yes [id number] TAKE ONE Univers 10 mg 0-03 TABLET BY ity of tablet 00:00: MOUTH [place] 00 EVERY Medical NIGHT AT Branch BEDTIME pravastatin 2018-04 Yes [id number] TAKE ONE Univers 10 mg 0-03 TABLET BY ity of tablet 00:00: MOUTH [place] 00 EVERY Medical NIGHT AT Branch BEDTIME APPLE CIDER 2018- No Take by Bebeto KENDALL 8-15 08-15 mouth ity of ORAL 21:57: 00:00 daily. [place] 24 :00 Medical [place] brinzolamid 2019- No Place in U nivers e-brimonidi 11-2515 each eye ity of ne 21:57: 00:00 daily. [place] (SIMBRINZA) 24 :00 Medical 1-0.2 % Branch ophthalmic drops bimatoprost 2019- No 1[drp] Place 1 Univers 0.03 % 11-25-15 Drop in ity of ophthalmic 21:57: 00:00 [place] eyes [place] drops 24 :00 daily. Medical Branch APPLE CIDER 2019- No Take by Un rodney VINEGAR 11-25-15 mouth ity of ORAL 21:57: 00:00 daily. [place] 24 :00 Medical Branch brinzolamid 2019- No Place in U nivers e-brimonidi 11-25 each eye ity of ne 21:57: 00:00 daily. [place] (SIMBRINZA) 24 :00 Medical 1-0.2 % Branch ophthalmic drops bimatoprost 2019- No 1[drp] Place 1 Univers 0.03 % 11-25-15 Drop in ity of ophthalmic 21:57: 00:00 [place] drops 24 :00 daily. Medical Branch aspirin 325 2019 Yes [id number] 325mg Take 325 Univers mg tablet 8-13 mg by ity of 20:23: mouth [place] 19 daily. Medical Branch PHENAZOPYRI Yes Take by Uni vers DINE HCL 8-13 mouth 2 ity of (AZO ORAL) 20:23: (two) [place] 19 times Medical daily. Branch COCONUT OIL Yes Apply to Un [place] TOPICAL 8-13 area(s). ity of 20:23: Mixed with [place] 19 mint. Uses Medical prn for Branch muscle pain. multivitami Yes 1{tbl} Take 1 Un [place] n tablet 8-13 tablet by ity of 20:23: mouth [place] 19 daily. Medical Branch Zinc 50 mg 2019 Yes 25mg Take 25 mg U nivers Tab 8-13 by mouth. ity of 20:23: 19 Medical Branch LATANOPROST 2019 Yes Univer s , BULK, 8-13 ity of MISC 20:23: Medical Branch cyanocobala 2019-[address] Unive rs min/cobamam 8-13 under the ity of [place] (B12 20:23: tongue. [facility]) 19 Medical Branch cinnamon Yes Take by Univer s bark 8-13 mouth ity of (CINNAMON 20:23: daily. [place] ORAL) 19 Medical Branch thiamine Yes 100mg Take 100 Univ ers (VITAMIN 8-13 mg by ity of B-1) 100 mg 20:23: mouth [place] tablet 19 daily. Medical Branch aspirin 325 Yes [id number] 325mg Take 325 Univers mg tablet 8-13 mg by ity of 20:23: mouth [place] 19 daily. Medical Branch PHENAZOPYRI Yes Take by Uni vers DINE HCL 8-13 mouth 2 ity of (AZO ORAL) 20:23: (two) [place] 19 times Medical daily. Branch COCONUT OIL Yes Apply to Un [place] TOPICAL 8-13 area(s). ity of 20:23: Mixed with [place] 19 mint. Uses Medical prn for Branch muscle pain. multivitami Yes 1{tbl} Take 1 Un [place] n tablet 8-13 tablet by ity of 20:23: mouth [place] 19 daily. Medical Branch Zinc 50 mg Yes 25mg Take 25 mg U nivers Tab 8-13 by mouth. ity of 20:23: [place] 19 Medical Branch LATANOPROST 0 Yes Univer s , BULK, 8-13 ity of MISC 20:23: [place] 19 Medical Branch cyanocobala Yes Place Unive rs min/cobamam 8-13 under the ity of [place] (B12 20:23: tongue. [facility]) 19 Medical Branch cinnamon Yes Take by Univer s bark 8-13 mouth ity of (CINNAMON 20:23: daily. [place] ORAL) 19 Medical Branch thiamine Yes 100mg Take 100 Univ ers (VITAMIN 8-13 mg by ity of B-1) 100 mg 20:23: mouth [place] tablet 19 daily. Medical Branch aspirin 325 2018- Yes [id number] 325mg Take 325 Univers mg tablet 8-13 mg by ity of 20:23: mouth [place] 19 daily. Medical Branch PHENAZOPYRI Yes Take by Uni vers DINE HCL 8-13 mouth 2 ity of (AZO ORAL) 20:23: (two) [place] 19 times Medical daily. Branch COCONUT OIL Yes Apply to Un [place] TOPICAL 8-13 area(s). ity of 20:23: Mixed with [place] 19 mint. Uses Medical prn for Branch muscle pain. multivitami Yes 1{tbl} Take 1 Un [place] n tablet 8-13 tablet by ity of 20:23: mouth [place] 19 daily. Medical Branch Zinc 50 mg [id number] Yes 25mg Take 25 mg U nivers Tab 8-13 by mouth. ity of 20:23: [place] 19 Medical Branch LATANOPROST 0 Yes Univer s , BULK, 8-13 ity of MISC 20:23: Medical Branch cyanocobala Yes Place Unive rs min/cobamam 8-13 under the ity of [place] (B12 20:23: tongue. [place] [facility]) 19 Medical Branch cinnamon Yes Take by Univer s bark 8-13 mouth ity of (CINNAMON 20:23: daily. [place] ORAL) 19 Medical Branch thiamine Yes 100mg Take 100 Univ ers (VITAMIN 8-13 mg by ity of B-1) 100 mg 20:23: mouth [place] tablet 19 daily. Medical Branch aspirin 325 2018- Yes [id number] 325mg Take 325 Univers mg tablet 8-13 mg by ity of 20:23: mouth [place] 19 daily. Medical Branch PHENAZOPYRI Yes Take by Uni vers DINE HCL 8-13 mouth 2 ity of (AZO ORAL) 20:23: (two) [place] 19 times Medical daily. Branch COCONUT OIL Yes Apply to Un [place] TOPICAL 8-13 area(s). ity of 20:23: Mixed with [place] 19 mint. Uses Medical prn for Branch muscle pain. multivitami 2019 Yes 1{tbl} Take 1 Un [place] n tablet 8-13 tablet by ity of 20:23: mouth [place] 19 daily. Medical Branch Zinc 50 mg 2019-0 Yes 25mg Take 25 mg U nivers Tab 8-13 by mouth. ity of 20:23: [place] 19 Medical Branch LATANOPROST 2018-0 Yes Univer s , BULK, 8-13 ity of MISC 20:23: [place] 19 Medical Branch cyanocobala Yes Place Unive rs min/cobamam 8-13 under the ity of [place] (B12 20:23: tongue. [facility]) 19 Medical Branch cinnamon Yes Take by Univer s bark 8-13 mouth ity of (CINNAMON 20:23: daily. [place] ORAL) 19 Medical Branch thiamine Yes 100mg Take 100 Univ ers (VITAMIN 8-13 mg by ity of B-1) 100 mg 20:23: mouth [place] tablet 19 daily. Medical Branch aspirin 325 Yes [id number] 325mg Take 325 Univers mg tablet 8-13 mg by ity of 20:23: mouth [place] 19 daily. Medical Branch PHENAZOPYRI Yes Take by Uni vers DINE HCL 8-13 mouth 2 ity of (AZO ORAL) 20:23: (two) [place] 19 times Medical daily. Branch COCONUT OIL Yes Apply to Un [place] TOPICAL 8-13 area(s). ity of 20:23: Mixed with [place] 19 mint. Uses Medical prn for Branch muscle pain. multivitami Yes 1{tbl} Take 1 Un [place] n tablet 8-13 tablet by ity of 20:23: mouth [place] 19 daily. Medical Branch Zinc 50 mg Yes 25mg Take 25 mg U nivers Tab 8-13 by mouth. ity of 20:23: [place] 19 Medical Branch LATANOPROST Yes Univer s , BULK, 8-13 ity of MISC 20:23: [place] Medical Branch cyanocobala Yes Place Unive rs min/cobamam 8-13 under the ity of [place] (B12 20:23: tongue. [facility]) 19 Medical Branch cinnamon Yes Take by Univer s bark 8-13 mouth ity of (CINNAMON 20:23: daily. [place] ORAL) 19 Medical Branch thiamine Yes 100mg Take 100 Univ ers (VITAMIN 8-13 mg by ity of B-1) 100 mg 20:23: mouth [place] tablet 19 daily. Medical Branch aspirin 325 Yes [id number] 325mg Take 325 Univers mg tablet 8-13 mg by ity of 20:23: mouth [place] 19 daily. Medical Branch PHENAZOPYRI Yes Take by Uni vers DINE HCL 8-13 mouth 2 ity of (AZO ORAL) 20:23: (two) [place] 19 times Medical daily. Branch COCONUT OIL Yes Apply to Un [place] TOPICAL 8-13 area(s). ity of 20:23: Mixed with [place] 19 mint. Uses Medical prn for Branch muscle pain. multivitami Yes 1{tbl} Take 1 Un [place] n tablet 8-13 tablet by ity of 20:23: mouth [place] 19 daily. Medical Branch Zinc 50 mg Yes 25mg Take 25 mg U nivers Tab 8-13 by mouth. ity of 20:23: [place] Medical Branch LATANOPROST Yes Univer s , BULK, 8-13 ity of MISC 20:23: Medical Branch cyanocobala Yes Place Unive rs min/cobamam 8-13 under the ity of [place] (B12 20:23: tongue. [place] SL) 19 Medical Branch cinnamon Yes Take by Univer s bark 8-13 mouth ity of (CINNAMON 20:23: daily. [place] ORAL) 19 Medical Branch thiamine Yes 100mg Take 100 Univ ers (VITAMIN 8-13 mg by ity of B-1) 100 mg 20:23: mouth [place] tablet 19 daily. Medical Branch aspirin 325 2018- Yes [id number] 325mg Take 325 Univers mg tablet 8-13 mg by ity of 20:23: mouth [place] 19 daily. Medical Branch PHENAZOPYRI Yes Take by Uni vers DINE HCL 8-13 mouth 2 ity of (AZO ORAL) 20:23: (two) [place] 19 times Medical daily. Branch COCONUT OIL Yes Apply to Un [place] TOPICAL 8-13 area(s). ity of 20:23: Mixed with [place] 19 mint. Uses Medical prn for Branch muscle pain. multivitami Yes 1{tbl} Take 1 Un [place] n tablet 8-13 tablet by ity of 20:23: mouth [place] 19 daily. Medical Branch Zinc 50 mg 0 Yes 25mg Take 25 mg U nivers Tab 8-13 by mouth. ity of 20:23: [place] 19 Medical Branch LATANOPROST 0 Yes Univer s , BULK, 8-13 ity of MISC 20:23: [place] 19 Medical Branch cyanocobala Yes Place Unive rs min/cobamam 8-13 under the ity of [place] (B12 20:23: tongue. [facility]) 19 Medical Branch cinnamon Yes Take by Univer s bark 8-13 mouth ity of (CINNAMON 20:23: daily. [place] ORAL) 19 Medical Branch thiamine Yes 100mg Take 100 Univ ers (VITAMIN 8-13 mg by ity of B-1) 100 mg 20:23: mouth [place] tablet 19 daily. Medical Branch aspirin 325 Yes [id number] 325mg Take 325 Univers mg tablet 8-13 mg by ity of 20:23: mouth [place] 19 daily. Medical Branch PHENAZOPYRI Yes Take by Uni vers DINE HCL 8-13 mouth 2 ity of (AZO ORAL) 20:23: (two) [place] 19 times Medical daily. Branch COCONUT OIL Yes Apply to Un [place] TOPICAL 8-13 area(s). ity of 20:23: Mixed with [place] 19 mint. Uses Medical prn for Branch muscle pain. multivitami Yes 1{tbl} Take 1 Un [place] n tablet 8-13 tablet by ity of 20:23: mouth [place] 19 daily. Medical Branch Zinc 50 mg Yes 25mg Take 25 mg U nivers Tab 8-13 by mouth. ity of 20:23: [place] [address] Medical Branch LATANOPROST Yes Univer s , BULK, 8-13 ity of [facility] 20:23: [place] Medical Branch cyanocobala Yes Place Unive rs min/cobamam 8-13 under the ity of [place] (B12 20:23: tongue. [facility]) 19 Medical Branch cinnamon Yes Take by Univer s bark 8-13 mouth ity of (CINNAMON 20:23: daily. [place] ORAL) 19 Medical Branch thiamine Yes 100mg Take 100 Univ ers (VITAMIN 8-13 mg by ity of B-1) 100 mg 20:23: mouth [place] tablet 19 daily. Medical Branch aspirin 325 Yes [id number] 325mg Take 325 Univers mg tablet 8-13 mg by ity of 20:23: mouth [place] 19 daily. Medical Branch PHENAZOPYRI Yes Take by Uni vers DINE HCL 8-13 mouth 2 ity of (AZO ORAL) 20:23: (two) [place] 19 times Medical daily. Branch COCONUT OIL Yes Apply to Un [place] TOPICAL 8-13 area(s). ity of 20:23: Mixed with [place] 19 mint. Uses Medical prn for Branch muscle pain. multivitami Yes 1{tbl} Take 1 Un [place] n tablet 8-13 tablet by ity of 20:23: mouth [place] 19 daily. Medical Branch Zinc 50 mg Yes 25mg Take 25 mg U nivers Tab 8-13 by mouth. ity of 20:23: [place] Medical Branch LATANOPROST Yes Univer s , BULK, 8- ity of MISC 20:23: [place] Medical Branch cyanocobala Yes Place Unive rs min/cobamam 8- under the ity of [place] (B12 20:23: tongue. [place] [facility]) 19 Medical Branch cinnamon Yes Take by Univer s bark 8- mouth ity of (CINNAMON 20:23: daily. [place] ORAL) 19 Medical Branch thiamine Yes 100mg Take 100 Univ ers (VITAMIN 8-13 mg by ity of B-1) 100 mg 20:23: mouth [place] tablet 19 daily. Medical Branch DONEPEZIL 5 Yes [id number] TAKE ONE Univers mg tablet 7-13 TABLET BY ity o f 00:00: MOUTH [place] 00 EVERY Medical NIGHT AT Branch BEDTIME DONEPEZIL 5 Yes [id number] TAKE ONE Univers mg tablet 7-13 TABLET BY ity o f 00:00: MOUTH [place] 00 EVERY Medical NIGHT AT Branch BEDTIME DONEPEZIL 5 Yes [id number] TAKE ONE Univers mg tablet 7-13 TABLET BY ity o f 00:00: MOUTH [place] 00 EVERY Medical NIGHT AT Branch BEDTIME DONEPEZIL 5 Yes [id number] TAKE ONE Univers mg tablet 7-13 TABLET BY ity o f 00:00: MOUTH [place] 00 EVERY Medical NIGHT AT Branch BEDTIME DONEPEZIL 5 Yes [id number] TAKE ONE Univers mg tablet 7-13 TABLET BY ity o f 00:00: MOUTH [place] 00 EVERY Medical NIGHT AT Branch BEDTIME DONEPEZIL 5 Yes [id number] TAKE ONE Univers mg tablet 7-13 TABLET BY ity o f 00:00: MOUTH [place] 00 EVERY Medical NIGHT AT [place] BEDTIME DONEPEZIL 5 2019-0 Yes [id number] TAKE ONE Univers mg tablet 7-13 TABLET BY ity o f 00:00: MOUTH [place] 00 EVERY Medical NIGHT AT [place] BEDTIME DONEPEZIL 5 2018-0 Yes [id number] TAKE ONE Univers mg tablet 7-13 TABLET BY ity o f 00:00: MOUTH [place] 00 [facility] Yes [id number] TAKE ONE Univers mg tablet 7-13 TABLET BY ity o f 00:00: MOUTH [place] 00 [facility] 2018-0 Yes [id number] TAKE ONE Univers mg tablet 7-13 TABLET BY ity o f 00:00: MOUTH [place] 00 [facility] 2018-0 Yes [id number] TAKE ONE Univers mg tablet 7-13 TABLET BY ity o f 00:00: MOUTH [place] 00 [facility] 0 Yes [id number] TAKE ONE Univers mg tablet 7-13 TABLET BY ity o f 00:00: MOUTH [place] 00 [facility]-0 Yes [id number] TAKE ONE Univers THIAZIDE 50 6-23 TABLET BY ity of mg tablet 00:00: MOUTH [place] 00 DAILY Medical Branch HYDROCHLORO 2019-0 Yes [id number] TAKE ONE Univers THIAZIDE 50 6-23 TABLET BY ity of mg tablet 00:00: MOUTH [place] 00 DAILY Medical Branch HYDROCHLORO 2019-0 Yes [id number] TAKE ONE Univers THIAZIDE 50 6-23 TABLET BY ity of mg tablet 00:00: MOUTH [place] 00 DAILY Medical Branch HYDROCHLORO 2019-0 Yes [id number] TAKE ONE Univers THIAZIDE 50 6-23 TABLET BY ity of mg tablet 00:00: MOUTH [place] 00 DAILY Medical Branch HYDROCHLORO 2019-0 Yes [id number] TAKE ONE Univers THIAZIDE 50 6-23 TABLET BY ity of mg tablet 00:00: MOUTH [place] 00 DAILY Medical Branch HYDROCHLORO 2019-0 Yes [id number] TAKE ONE Univers THIAZIDE 50 6-23 TABLET BY ity of mg tablet 00:00: MOUTH [place] 00 DAILY Medical Branch HYDROCHLORO 2019-0 Yes [id number] TAKE ONE Univers THIAZIDE 50 6-23 TABLET BY ity of mg tablet 00:00: MOUTH [place] 00 DAILY Medical Branch HYDROCHLORO 2019-0 Yes [id number] TAKE ONE Univers THIAZIDE 50 6-23 TABLET BY ity of mg tablet 00:00: MOUTH [place] 00 DAILY Medical Branch HYDROCHLORO 2019-0 Yes [id number] TAKE ONE Univers THIAZIDE 50 6-23 TABLET BY ity of mg tablet 00:00: MOUTH [place] 00 DAILY Medical Branch HYDROCHLORO 2019-0 Yes [id number] TAKE ONE Univers THIAZIDE 50 6-23 TABLET BY ity of mg tablet 00:00: MOUTH [place] 00 DAILY Medical Branch HYDROCHLORO 2019-0 Yes [id number] TAKE ONE Univers THIAZIDE 50 6-23 TABLET BY ity of mg tablet 00:00: MOUTH [place] 00 DAILY Medical Branch HYDROCHLORO 2019-0 Yes [id number] TAKE ONE Univers THIAZIDE 50 6-23 TABLET BY ity of mg tablet 00:00: MOUTH [place] 00 DAILY Medical Branch pravastatin 2019-0 Yes [id number] TAKE ONE Univers 10 mg 6-21 TABLET BY ity of tablet 00:00: MOUTH 00 [facility] Yes [id number] TAKE ONE Univers 10 mg 6-21 TABLET BY ity of tablet 00:00: MOUTH [place] 00 [facility]0 Yes [id number] TAKE ONE Univers 10 mg 6-21 TABLET BY ity of tablet 00:00: MOUTH [place] 00 [facility]0 Yes [id number] TAKE ONE Univers 10 mg 6-21 TABLET BY ity of tablet 00:00: MOUTH [place] 00 [facility]0 Yes [id number] TAKE ONE Univers 10 mg 6-21 TABLET BY ity of tablet 00:00: MOUTH [place] 00 EVERY [facility]0 Yes [id number] TAKE ONE Univers 10 mg 6-21 TABLET BY ity of tablet 00:00: MOUTH [place] 00 [facility]0 Yes [id number] TAKE ONE Univers 10 mg 6-21 TABLET BY ity of tablet 00:00: MOUTH [place] 00 [facility]0 Yes [id number] TAKE ONE Univers 10 mg 6-21 TABLET BY ity of tablet 00:00: MOUTH [place] 00 EVERY Medical NIGHT AT Branch BEDTIME aspirin 325 2018- Yes [id number] 325mg Take 325 Univers mg tablet 5-13 mg by ity of 19:52: mouth [place] 08 daily. Medical Branch PHENAZOPYRI Yes Take by Uni vers DINE HCL 5-13 mouth 2 ity of (AZO ORAL) 19:52: (two) [place] 08 times Medical daily. Branch COCONUT OIL Yes Apply to Un [facility] TOPICAL 5-13 area(s). ity of 19:52: Mixed with [place] 08 mint. Uses Medical prn for Branch muscle pain. multivitami Yes 1{tbl} Take 1 Un [place] n tablet 5-13 tablet by ity of 19:52: mouth [place] 08 daily. Medical Branch Zinc 50 mg Yes 25mg Take 25 mg U nivers Tab 5-13 by mouth. ity of 19:52: Medical Branch LATANOPROST Yes Univer s , BULK, 5- ity of MISC 19:52: Medical Branch cyanocobala Yes Place Unive rs min/cobamam 5- under the ity of [place] (B12 19:52: tongue. [place] SL) 08 Medical Branch APPLE CIDER Yes Take by Uni vers VINEGAR 5-13 mouth ity of ORAL 19:52: daily. Medical Branch cinnamon Yes Take by Univer s bark 5-13 mouth ity of (CINNAMON 19:52: daily. [place] ORAL) 08 Medical Branch brinzolamid Yes Place in Un [place] e-brimonidi 5-13 each eye ity of ne 19:52: daily. [place] (SIMBRINZA) Medical 1-0.2 % Branch ophthalmic drops thiamine Yes 100mg Take 100 Univ ers (VITAMIN 5-13 mg by ity of B-1) 100 mg 19:52: mouth [place] tablet 08 daily. Medical Branch bimatoprost Yes 1[drp] Place 1 U nivers 0.03 % 5-13 Drop in ity of ophthalmic 19:52: [place] drops 08 daily. Medical Branch aspirin 325 2018- Yes [id number] 325mg Take 325 Univers mg tablet 5-13 mg by ity of 19:52: mouth [place] 08 daily. Medical Branch PHENAZOPYRI Yes Take by Uni vers DINE HCL 5-13 mouth 2 ity of (AZO ORAL) 19:52: (two) [place] 08 times Medical daily. Branch COCONUT OIL Yes Apply to Un [place] TOPICAL 5-13 area(s). ity of 19:52: Mixed with [place] 08 mint. Uses Medical prn for Branch muscle pain. multivitami Yes 1{tbl} Take 1 Un [place] n tablet 5-13 tablet by ity of 19:52: mouth [place] 08 daily. Medical Branch Zinc 50 mg Yes 25mg Take 25 mg U nivers Tab 5-13 by mouth. ity of 19:52: Medical Branch LATANOPROST Yes Univer s , BULK, 5- ity of MISC 19:52: Medical Branch cyanocobala Yes Place Unive rs min/cobamam 5- under the ity of [place] (B12 19:52: tongue. [place] SL) 08 Medical Branch APPLE CIDER Yes Take by Uni vers VINEGAR 5-13 mouth ity of ORAL 19:52: daily. Medical Branch cinnamon Yes Take by Univer s bark 5-13 mouth ity of (CINNAMON 19:52: daily. [place] ORAL) 08 Medical Branch brinzolamid Yes Place in Un [place] e-brimonidi 5-13 each eye ity of ne 19:52: daily. [place] (SIMBRINZA) Medical 1-0.2 % Branch ophthalmic drops thiamine Yes 100mg Take 100 Univ ers (VITAMIN 5-13 mg by ity of B-1) 100 mg 19:52: mouth [place] tablet 08 daily. Medical Branch bimatoprost Yes 1[drp] Place 1 U nivers 0.03 % 5-13 Drop in ity of ophthalmic 19:52: [place] drops 08 daily. Medical Branch aspirin 325 Yes [id number] 325mg Take 325 Univers mg tablet 5-13 mg by ity of 19:52: mouth [place] 08 daily. Medical Branch PHENAZOPYRI Yes Take by Uni vers DINE HCL 5-13 mouth 2 ity of (AZO ORAL) 19:52: (two) [place] times Medical daily. Branch COCONUT OIL Yes Apply to Un [place] TOPICAL 5-13 area(s). ity of 19:52: Mixed with mint. Uses Medical prn for Branch muscle pain. multivitami Yes 1{tbl} Take 1 Un [place] n tablet 5-13 tablet by ity of 19:52: mouth [place] 08 daily. Medical Branch Zinc 50 mg 2019- Yes 25mg Take 25 mg U nivers Tab 5-13 by mouth. ity of 19:52: Medical Branch LATANOPROST Yes Univer s , BULK, 5- ity of MISC 19:52: Medical Branch cyanocobala Yes Place Unive rs min/cobamam 5- under the ity of [place] (B12 19:52: tongue. [facility]) Medical Branch APPLE CIDER Yes Take by Uni vers VINEGAR 5-13 mouth ity of ORAL 19:52: daily. [place] [id number] Medical Branch cinnamon Yes Take by Univer s bark 5-13 mouth ity of (CINNAMON 19:52: daily. [place] ORAL) Medical Branch brinzolamid Yes Place in Un [place] e-brimonidi 5- each eye ity of ne 19:52: daily. [place] (SIMBRINZA) Medical 1-0.2 % Branch ophthalmic drops thiamine Yes 100mg Take 100 Univ ers (VITAMIN 5-13 mg by ity of B-1) 100 mg 19:52: mouth [place] tablet 08 daily. Medical Branch bimatoprost Yes 1[drp] Place 1 U nivers 0.03 % 5-13 Drop in ity of ophthalmic 19:52: [place] eyes [place] drops 08 daily. Medical Branch acetylcyste 0 Yes 600mg 600 mg Uni vers ine 3-15 once now. ity of (N-ACETYL-L 00:00: [place] -CYSTEINE 00 Medical MISC) Branch cholecalcif 0 Yes 1000mg 1,000 mg Univers betty, 3-15 once now. ity of vitamin D3, 00:00: [place] (D3-2000 Medical ORAL) Branch pyridoxine, 2018-0 Yes 25mg Take 25 mg Univers vitamin B6, 3-15 by mouth ity of 50 mg 00:00: once now. [place] tablet Medical Branch acetylcyste 0 Yes 600mg 600 mg Uni vers ine 3-15 once now. ity of (N-ACETYL-L 00:00: -CYSTEINE [facility]) Branch cholecalcif 0 Yes 1000mg 1,000 mg Univers betty, 3-15 once now. ity of vitamin D3, 00:00: [place] (D3 Medical ORAL) Branch pyridoxine, 0 Yes 25mg Take 25 mg Univers vitamin B6, 3-15 by mouth ity of 50 mg 00:00: once now. [place] tablet Medical Branch acetylcyste Yes 600mg 600 mg Uni vers ine 3-15 once now. ity of (N-ACETYL-L 00:00: CYSTEINE [facility]) Branch cholecalcif Yes 1000mg 1,000 mg Univers betty, 3-15 once now. ity of vitamin D3, 00:00: [place] (D3 [facility]) Branch pyridoxine, 0 Yes 25mg Take 25 mg Univers vitamin B6, 3-15 by mouth ity of 50 mg 00:00: once now. [place] tablet Medical Branch acetylcyste 0 Yes 600mg 600 mg Uni vers ine 3-15 once now. ity of (N-ACETYL-L 00:00: [place] CYSTEINE [facility]) Branch cholecalcif 0 Yes 1000mg 1,000 mg Univers betty, 3-15 once now. ity of vitamin D3, 00:00: [place] (D3 Medical [place]) Branch pyridoxine, 0 Yes 25mg Take 25 mg Univers vitamin B6, 3-15 by mouth ity of 50 mg 00:00: once now. [place] tablet Medical Branch acetylcyste 0 Yes 600mg 600 mg Uni vers ine 3-15 once now. ity of (N-ACETYL-L 00:00: CYSTEINE [facility]) Branch cholecalcif 0 Yes 1000mg 1,000 mg Univers betty, 3-15 once now. ity of vitamin D3, 00:00: [place] (D3 Medical ORAL) Branch pyridoxine, 0 Yes 25mg Take 25 mg Univers vitamin B6, 3-15 by mouth ity of 50 mg 00:00: once now. [place] tablet Medical Branch acetylcyste Yes 600mg 600 mg Uni vers ine 3-15 once now. ity of (N-ACETYL-L 00:00: -CYSTEINE [facility]) Branch cholecalcif Yes 1000mg 1,000 mg Univers betty, 3-15 once now. ity of vitamin D3, 00:00: [place] (D3 Medical ORAL) Branch pyridoxine, Yes 25mg Take 25 mg Univers vitamin B6, 3-15 by mouth ity of 50 mg 00:00: once now. [place] tablet Medical Branch acetylcyste Yes 600mg 600 mg Uni vers ine 3-15 once now. ity of (N-ACETYL-L 00:00: [place] CYSTEINE [facility]) Branch cholecalcif Yes 1000mg 1,000 mg Univers betty, 3-15 once now. ity of vitamin D3, 00:00: [place] (D3 [facility] ORAL) Branch pyridoxine, Yes 25mg Take 25 mg Univers vitamin B6, 3-15 by mouth ity of 50 mg 00:00: once now. [place] tablet Medical Branch acetylcyste Yes 600mg 600 mg Uni vers ine 3-15 once now. ity of (N-ACETYL-L 00:00: [place] CYSTEINE [facility]) Branch cholecalcif Yes 1000mg 1,000 mg Univers betty, 3-15 once now. ity of vitamin D3, 00:00: [place] (D3 Medical ORAL) Branch pyridoxine, Yes 25mg Take 25 mg Univers vitamin B6, 3-15 by mouth ity of 50 mg 00:00: once now. [place] tablet Medical Branch acetylcyste Yes 600mg 600 mg Uni vers ine 3-15 once now. ity of (N-ACETYL-L 00:00: CYSTEINE [facility]) Branch cholecalcif 0 Yes 1000mg 1,000 mg Univers betty, 3-15 once now. ity of vitamin D3, 00:00: [place] (D3 Medical ORAL) Branch pyridoxine, Yes 25mg Take 25 mg Univers vitamin B6, 3-15 by mouth ity of 50 mg 00:00: once now. [place] tablet 00 Medical Branch calcium Yes Take 1 Univers carbonate-v 9-07 tablet a ity of itamin D3 00:00: day [place] 600 mg 00 Medical (1,500 Branch mg)-800 unit per tablet calcium Yes Take 1 Univers carbonate-v - tablet a ity of itamin D3 00:00: day [place] 600 mg 00 Medical (1,500 Branch mg)-800 unit per tablet calcium Yes Take 1 Univers carbonate-v - tablet a ity of itamin D3 00:00: day [place] 600 mg 00 Medical (1,500 Branch mg)-800 unit per tablet calcium 2019- No Take 1 Univers carbonate-v -10 18-15 tablet a ity of itamin D3 00:00: 00:00 day [place] 600 mg 00 :00 Medical (1,500 Branch mg)-800 unit per tablet calcium 2019- No Take 1 Univers carbonate-v 12-18-15 tablet a ity of itamin D3 00:00: 00:00 day [place] 600 mg 00 :00 Medical (1,500 Branch mg)-800 unit per tablet donepezil 2014-0 Yes daily. [facility] (ARICEPT) 5 - College MG tablet 00:00: of 00 Medicin e Pyridoxine 2014-0 Yes [facility] HCl 04-13 College (VITAMIN 00:00: of B-6) 25 MG 00 Medicin TABS e donepezil 0 Yes daily. [facility] (ARICEPT) 5 - College MG tablet 00:00: of Medicin e Pyridoxine 2014-0 Yes [facility] HCl 04-13 College (VITAMIN 00:00: of B-6) 25 MG 00 Medicin TABS e donepezil 2014-0 Yes daily. [facility] (ARICEPT) 5 - College MG tablet 00:00: of Medicin e Pyridoxine 2014- Yes [place] HCl 04-13 College (VITAMIN 00:00: of B-6) 25 MG 00 Medicin TABS e pravastatin Yes 20mg Take 20 mg [place] (PRAVACHOL) 04-13 by mouth [place] [facility] 20 MG 00:00: daily. of tablet 00 Medicin e aspirin 325 Yes [place] mg tablet 04-13 College 00:00: of 00 Medicin e Lactobacill Yes [facility] (AZO 04-13 College COMPLETE 00:00: of FEMININE Medicin BALANCE OR) e pravastatin Yes 20mg Take 20 mg [facility] (PRAVACHOL) 04-13 by mouth [place] [facility] 20 MG 00:00: daily. of tablet 00 Medicin e aspirin 325 Yes [place] mg tablet 04-13 College 00:00: of 00 Medicin e Lactobacill Yes [facility] (AZO 04-13 College COMPLETE 00:00: of FEMININE Medicin BALANCE OR) e pravastatin Yes 20mg Take 20 mg [facility] (PRAVACHOL) 04-13 by mouth [place] [facility] 20 MG 00:00: daily. of tablet Medicin e aspirin 325 Yes [facility] mg tablet 04-13 [place] 00:00: of 00 Medicin e Lactobacill Yes [facility] (AZO 04-13 College COMPLETE 00:00: of FEMININE Medicin BALANCE OR) e Immunizations Ordered Filled Immunization Date Status Comments [facility] e Immunization Name Name Influenza High Dose 2019-01-19 Completed Unive rsity of 00:00:00 [facility] Influenza High Dose 2019-01-19 Completed Unive rsity of 00:00:00 [facility] Influenza High Dose 2019-01-19 Completed Unive rsity of 00:00:00 [facility] Influenza High Dose 2019-01-19 Completed Unive rsity of 00:00:00 [facility] Zoster Vaccine 2018-08-26 Completed University of Recombinant 00:00:00 [facility] Zoster Vaccine 2018-08-26 Completed University of Recombinant 00:00:00 [facility] Zoster Vaccine 2018-08-26 Completed University of Recombinant 00:00:00 [facility] Zoster Vaccine 2018-08-26 Completed University of Recombinant 00:00:00 [facility] Zoster Vaccine 2018-05-20 Completed University of Recombinant 00:00:00 [facility] Zoster Vaccine 2018-05-20 Completed University of Recombinant 00:00:00 [facility] Zoster Vaccine 2018-05-20 Completed University of Recombinant 00:00:00 [facility] Zoster Vaccine 2018-05-20 Completed University of Recombinant 00:00:00 [facility] Influenza High Dose 2018-03-03 Completed Unive rsity of 00:00:00 [facility] Influenza High Dose 2018-03-03 Completed Unive rsity of 00:00:00 [facility] Influenza High Dose 2018-03-03 Completed Unive rsity of 00:00:00 [facility] Influenza High Dose 2018-03-03 Completed Unive rsity of 00:00:00 [facility] Influenza High Dose 2018-03-03 Completed Unive rsity of 00:00:00 [facility] Influenza High Dose 2018-03-03 Completed Unive rsity of 00:00:00 [facility] Influenza High Dose 2018-03-03 Completed Unive rsity of 00:00:00 [facility] Influenza High Dose 2018-03-03 Completed Unive rsity of 00:00:00 [facility] Influenza High Dose 2018-03-03 Completed Unive rsity of 00:00:00 [facility] Influenza High Dose 2018-03-03 Completed Unive rsity of 00:00:00 [facility] Influenza High Dose 2018-03-03 Completed Unive rsity of 00:00:00 [facility] Influenza High Dose 2018-03-03 Completed Unive rsity of 00:00:00 [facility] Influenza High Dose 2017-03-03 Completed Unive rsity of 00:00:00 [facility] Influenza High Dose 2017-03-03 Completed Unive rsity of 00:00:00 [facility] Influenza High Dose 2017-03-03 Completed Unive rsity of 00:00:00 [facility] Influenza High Dose 2017-03-03 Completed Unive rsity of 00:00:00 [facility] Influenza High Dose 2017-03-03 Completed Unive rsity of 00:00:00 [facility] Influenza High Dose 2017-03-03 Completed Unive rsity of 00:00:00 [facility] Influenza High Dose 2017-03-03 Completed Unive rsity of 00:00:00 [facility] Influenza High Dose 2017-03-03 Completed Unive rsity of 00:00:00 [facility] Influenza High Dose 2017-03-03 Completed Unive rsity of 00:00:00 [facility] Influenza High Dose 2017-03-03 Completed Unive rsity of 00:00:00 [facility] Influenza High Dose 2017-03-03 Completed Unive rsity of 00:00:00 [facility] Influenza High Dose 2017-03-03 Completed Unive rsity of 00:00:00 [facility] Vital Signs Vital Name Observation Time Observation Value Comments Source Systolic blood 2020-09-21 15:08:00 114 mm[Hg] [facility] pressure Medicine Diastolic blood 2020-09-21 15:08:00 71 mm[Hg] [facility] pressure Medicine Heart rate 2020-09-21 15:08:00 68 /min [facility] Medicine Body height 2020-09-21 15:08:00 170.2 cm [facility] Medicine Body weight 2020-09-21 15:08:00 102.059 kg [facility] Medicine BMI 2020-09-21 15:08:00 35.24 kg/m2 [facility] of Medicine Systolic blood 2020-06-22 17:08:00 136 mm[Hg] [facility] of pressure Medicine Diastolic blood 2020-06-22 17:08:00 77 mm[Hg] [facility] pressure Medicine Heart rate 2020-06-22 17:08:00 78 /min [facility] Medicine Body height 2020-06-22 17:08:00 170.2 cm [facility] Medicine Body weight 2020-06-22 17:08:00 102.059 kg [facility] Medicine BMI 2020-06-22 17:08:00 35.24 kg/m2 [facility] Medicine Systolic blood 2020-04-20 18:09:00 138 mm[Hg] [facility] pressure Medicine Diastolic blood 2020-04-20 18:09:00 65 mm[Hg] [facility] of pressure Medicine Heart rate 2020-04-20 18:09:00 91 /min [facility] Medicine Body height 2020-04-20 18:09:00 170.2 cm [facility] of Medicine Body weight 2020-04-20 18:09:00 102.059 kg [facility] Medicine BMI 2020-04-20 18:09:00 35.24 kg/m2 [facility] of Medicine Systolic blood 2020-04-20 18:09:00 138 mm[Hg] [facility] of pressure Medicine Diastolic blood 2020-04-20 18:09:00 65 mm[Hg] [facility] Medicine Heart rate 2020-04-20 18:09:00 91 /min [facility] Body height 2020-04-20 18:09:00 170.2 cm [facility] Body weight 2020-04-20 18:09:00 102.059 kg [facility] BMI 2020-04-20 18:09:00 35.24 kg/m2 [facility] Systolic blood 2018-11-23 20:27:00 101 mm[Hg] Univer sity of pressure [facility] Diastolic blood 2018-11-23 20:27:00 65 mm[Hg] Unive rsity of pressure [facility] Heart rate 2018-11-23 20:27:00 65 /min Universi ty of [facility] Body temperature 2018-11-23 20:27:00 36.5 Basia Univ ersity of [facility] Respiratory rate 2018-11-23 20:27:00 20 /min Univ ersity of [place] [facility] Body weight 2018-11-23 20:27:00 107.82 kg Universi ty of [place] [facility] BMI 2018-11-23 20:27:00 37.23 kg/m2 Universi ty of [facility] Oxygen saturation in 2018-11-23 20:27:00 96 /min [facility] Arterial blood by [facility] Pulse oximetry Branch Systolic blood 2018-11-23 20:27:00 101 mm[Hg] Univer sity of pressure [facility] Diastolic blood 2018-11-23 20:27:00 65 mm[Hg] Unive rsity of pressure [place] [facility] Heart rate 2018-11-23 20:27:00 65 /min Universi ty of [place] [facility] Body temperature 2018-11-23 20:27:00 36.5 Basia Univ ersity of [facility] [facility] Branch Respiratory rate 2018-11-23 20:27:00 20 /min Univ ersity of [place] [facility] Body weight 2018-11-23 20:27:00 107.82 kg Universi ty of [place] [facility] BMI 2018-11-23 20:27:00 37.23 kg/m2 Universi ty of [facility] Oxygen saturation in 2018-11-23 20:27:00 96 /min University of Arterial blood by [facility] Pulse oximetry Branch Procedures Procedure Date / Time Performing Clinician Source Performed AGREEMENTS AUTHORIZATIONS 2018-12-06 05:01:00 Doctor Unassigned, [facility] AND IRREVOCABLE [place] [facility] ASSIGNMENTS (FORM 2001) NO SHOW OR MISSED 2018-11-23 20:03:07 Doctor Unasssandra, [facility] APPOINTMENT POLICY [place] [facility] ACKNOWLEDGEMENT AGREEMENTS AUTHORIZATIONS 2018-11-15 05:01:00 Doctor Unassigned, [facility] AND IRREVOCABLE [place] [facility] ASSIGNMENTS (FORM 2001) Plan of Care Planned Activity Planned Date Details Comments Source Future Scheduled 2020-09-25 TETANUS SHOT (ADULT) [place] [facility] [employer] Test 14:11:11 [code = TETANUS SHOT of Medi cine (ADULT)] Future Scheduled 2020-09-25 Hepatitis C [facility] Test 14:11:11 screening of Medicine (procedure) [code = 899453647] Future Scheduled 2020-09-25 ZOSTER VACCINE (1 of [place] [facility] [employer] Test 14:11:11 2) [code = ZOSTER of Medicin e VACCINE (1 of 2)] Future Scheduled 2020-09-25 Screening for [facility] Test 14:11:11 osteoporosis of Medicine (procedure) [code = 493026382] Future Scheduled 2020-09-25 PNEUMOVAX >=65 [facility] Test 14:11:11 (PPSV23) [code = of Medicine PNEUMOVAX >=65 (PPSV23)] Future Scheduled 2020-09-25 MEDICARE AWV [facility] Test 14:11:11 (Initial) [code = of Medicin e MEDICARE AWV (Initial)] Future Scheduled 2020-09-25 FLU VACCINE > 6 [facility] Test 14:11:11 MONTHS [code = FLU of Medici ne VACCINE > 6 MONTHS] Future Scheduled 2020-09-25 BMI FOLLOW UP PLAN [employer] Test 14:11:11 [code = BMI FOLLOW of Medici ne UP PLAN] Future Scheduled 2020-09-25 FALL SCREEN [code = [employer] [facility] [employer] [facility] 14:11:11 FALL SCREEN] of Medicine Future Scheduled 2020-09-25 COVID-19 Vaccine (1) [place] [facility] [employer] Test 14:11:11 [code = COVID-19 of Medicine Vaccine (1)] Future Scheduled PNEUMOVAX >=65 [facility] Test (PPSV23) [code = of Medicine PNEUMOVAX >=65 (PPSV23)] Future Scheduled MEDICARE AWV [facility] Test (Initial) [code = of Medicin e MEDICARE AWV (Initial)] Future Scheduled FLU VACCINE > 6 [facility] Test MONTHS [code = FLU of Medici ne VACCINE > 6 MONTHS] Future Scheduled BMI FOLLOW UP PLAN [employer] Test [code = BMI FOLLOW of Medici ne UP PLAN] Future Scheduled COVID-19 Vaccine [facility] Test Evaluation [code = of Medici ne COVID-19 Vaccine Evaluation] Future Scheduled TETANUS SHOT (ADULT) [place] [employer] [employer] Test [code = TETANUS SHOT of Medi cine (ADULT)] Future Scheduled Hepatitis C [facility] Test screening of Medicine (procedure) [code = 970082742] Future Scheduled ZOSTER VACCINE (1 of [place] [employer] [employer] Test 2) [code = ZOSTER of Medicin e VACCINE (1 of 2)] Future Scheduled FALL SCREEN [code = [employer] [facility] FALL SCREEN] of Medicine Future Scheduled Screening for [facility]ge Test osteoporosis of Medicine (procedure) [code = [id number]] Future Scheduled PNEUMOVAX >=65 [facility] Test (PPSV23) [code = of Medicine PNEUMOVAX >=65 (PPSV23)] Future Scheduled MEDICARE AWV [facility] Test (Initial) [code = of Medicin e MEDICARE AWV (Initial)] Future Scheduled FLU VACCINE > 6 [facility] C [facility]lege Test MONTHS [code = FLU of Medici ne VACCINE > 6 MONTHS] Future Scheduled BMI FOLLOW UP PLAN [facility] Test [code = BMI FOLLOW of Medici ne UP PLAN] Future Scheduled COVID-19 Vaccine [facility] Test Evaluation [code = of Medici ne COVID-19 Vaccine Evaluation] Future Scheduled TETANUS SHOT (ADULT) [place] [employer] [employer] Test [code = TETANUS SHOT of Medi cine (ADULT)] Future Scheduled HEPATITIS C [facility] Test SCREENING [code = of Medicin e HEPATITIS C SCREENING] Future Scheduled ZOSTER VACCINE (1 of [place] [employer] [employer] Test 2) [code = ZOSTER of Medicin e VACCINE (1 of 2)] Future Scheduled FALL SCREEN [code = [employer] [facility] FALL SCREEN] of Medicine Future Scheduled OSTEOPOROSIS [facility] Test SCREENING [code = of Medicin e OSTEOPOROSIS SCREENING] Future Scheduled US VENOUS LEG RIGHT 1 Occurrences [place] [facility] [employer] Test [code = 61084] starting of Medicine 06/22/2020 until 06/22/2021 Future Scheduled US VENOUS LEG LEFT 1 Occurrences [employer] Test [code = 14138] starting of Medicine 04/20/2020 until 11/18/2020 Encounters Start End Encounter Admission Attending Care Care Encounter Source Date/Time Date/Time Type Type Clinicians Facility Department ID 2020-09-21 2020-09-21 Office REBECCA Preciado [id number] [facility] 09:58:50 11:23:50 Visit Ramyar AMBULATOR [id number] College Y [id number] of [id number] [facility] adamaris 825 e 2020-06-22 2020-06-22 Office REBECCA Preciado [id number] [facility] 10:43:14 10:58:14 Visit Ramyar AMBULATOR [id number] College Y [id number] of [id number] [facility] adamaris 825 e 2020-05-06 2020-05-06 Patient Rogelio [facility] [id number] Univers 00:00:00 00:00:00 Outreach Robbie PRIMARY [id number] i ty of [facility] [id number] Vira BOOKER [id number] Me dical 388 Branch 2020-04-20 2020-04-20 Office REBECCA Preciado [id number] 09:31:08 15:03:29 Visit Ramyar AMBULATOR [id number] Y [id number] [facility] 2020-04-20 2020-04-20 Office REBECCA Preciado [id number] [place] [address] 09:31:08 15:03:29 Visit Ramyar AMBULATOR [id number] College Y [id number] of [id number] [facility] adamaris 825 e 2020-01-09 2020-01-09 Telephone Bernabe, [facility] [id number] 00:00:00 00:00:00 Claudette [place] [id number] [place] [id number] Professio [phone] [address] 2020-01-09 2020-01-09 Telephone Bernabe, [facility] 1.2.840.[id number] [facility] [place] 00:00:00 00:00:00 Claudette A [place] [id number] ity [id number] [phone] [address] 2019-10-18 2019-10-18 Refill Bernabe, [facility] 1.2.840.114 [id number] [facility] 00:00:00 00:00:00 Claudette A [place] [id number] [id number] [phone] [address] 2019-10-18 2019-10-18 Refill Bernabe, [facility] 1.2.840.114 [id number] 00:00:00 00:00:00 Claudette A [place] [id number] [place] [id number] Professio [phone] [address] 2019-07-05 2019-07-05 Refill Kidd, [facility] 1.2.840.[id number] [facility] [place] 00:00:00 00:00:00 Claudette A [place] [id number] [place] [phone] [address] 2019-07-05 2019-07-05 Refill Kidd, [facility] 1.2.840.114 [id number] 00:00:00 00:00:00 Claudette A [place] [id number] [place] [id number] Professio [phone] [address] 2018-12-06 2018-12-06 [employer], [facility] 1.2.840.[id number] [facility] [place] 08:15:07 08:30:07 Visit Claudette Kidd 350.1. 13.10 it[place] of [place] [phone] [facility] [address] [facility] 2018-12-06 2018-12-06 [employer], [facility] 1.2.840.114 [id number] 08:15:07 08:30:07 Visit Matt [id number] [place] [id number] Professio [phone] [address] 2018-12-06 2018-12-06 Telephone Bernabe [facility] 1.2.840.[id number] [facility] [place] 00:00:00 00:00:00 Claudette Gutierrez [id number] it[place] [phone] [facility] [address] [facility] 2018-12-06 2018-12-06 Orders Doctor MARLON 1.2.840.[id number] [facility] [place] 00:00:00 00:00:00 Only Unassigned, ONEIL [id number] ity of [facility] 4.2.7.2.686 Javan as [phone] [address] 2018-12-06 2018-12-06 Telephone Kidd, [facility] 1.2.840.114 [id number] 00:00:00 00:00:00 Claudette Gutierrez [id number] [place] 4.2.7.2.686 Professio [phone] [address] 2018-12-06 2018-12-06 Orders Doctor MARLON 1.2.840.114 [id number] 00:00:00 00:00:00 Only Unassigned, ONEIL 350.1.13.10 [place] [facility] 4.2.7.2.686 [phone] 009 2018-11-23 2018-11-23 Office Bernabe [facility] 1.2.840.[id number] [facility] [place] 15:02:16 16:30:22 Visit Claudette Gutierrez 350.1.13.10 it[place] [phone] [facility] [address] [facility] 2018-11-23 2018-11-23 Office Bernabe [facility] 1.2.840.114 [id number] 15:02:16 16:30:22 Visit Claudette Gutierrez 350.1.13.10 [place] 4.2.7.2.686 Professio [phone] [address] 2018-11-23 2018-11-23 Orders Doctor MARLON 1.2.840.114 [id number] [facility] 00:00:00 00:00:00 Only Unassigned, ONEIL 350.1.13.10 ity of [place] [facility] 4.2.7.2.686 [place] as [phone] [address] 2018-11-15 2018-11-15 [employer], [facility] Lab [facility] 1.2.840.[id number] [facility] [place] 08:23:26 08:38:26 Visit Claudette Kidd 350.1. 13.10 ity of [place].2.[place] [phone] [facility] [address] [facility] 2018-11-15 2018-11-15 Orders Doctor MARLON 1.2.840.114 [id number] [facility] 00:00:00 00:00:00 Only Unassigned, ONEIL 350.1.13.10 ity of [place] [facility] 4.2.7.2.686 [place] [phone] [address] Results This patient has no known results.
--- NOTE | 2022-03-27 22:38 | EDPHYS ---
Physician Documentation [facility] Name: July Burton Age: 76 yrs Sex: Female : 1945 Arrival Date: 03/27/2022 Time: :22 Bed 4 Private MD: ED Physician Raad Cruz HPI: 03/27 22:31 This 76 yrs old Female presents to ER via Unassigned with complaints of upper tash gi bleed. 22:31 The patient presents with abdominal distention in the upper abdomen, in the lower tash abdomen. Onset: The symptoms/episode began/occurred today. The symptoms do not radiate. Associated signs and symptoms: Pertinent positives: headache, vomiting. The symptoms are described as crampy. Modifying factors: The symptoms are alleviated by nothing, the symptoms are aggravated by nothing. Severity of pain: At its worst the pain was mild in the emergency department the pain has resolved. The patient has experienced similar episodes in the past, a few times. Historical: - Allergies: 03/28 01:21 Codeine; as6 - PMHx: 01:21 Alzheimers; Dementia; Glaucoma; Hyperlipidemia; Hypertension; as6 - Immunization history:: Adult Immunizations up to date. - Social history:: Smoking status: Patient denies any tobacco usage or history of. - Family history:: not pertinent. ROS: 03/27 22:31 Constitutional: Negative for fever, chills, and weight loss, Eyes: Negative for injury, tash pain, redness, and discharge, ENT: Negative for injury, pain, and discharge, Neck: Negative for injury, pain, and swelling, Cardiovascular: Negative for chest pain, palpitations, and edema, Respiratory: Negative for shortness of breath, cough, wheezing, and pleuritic chest pain, Back: Negative for injury and pain, : Negative for injury, bleeding, discharge, and swelling, MS/Extremity: Negative for injury and deformity, Neuro: Negative for headache, weakness, numbness, tingling, and seizure, Psych: Negative for depression, anxiety, suicide ideation, homicidal ideation, and hallucinations, Allergy/Immunology: Negative for hives, rash, and allergies, Endocrine: Negative for neck swelling, polydipsia, polyuria, polyphagia, and marked weight changes, Hematologic/Lymphatic: Negative for swollen nodes, abnormal bleeding, and unusual bruising. Abdomen/GI: Positive for nausea, abdominal cramps, black/tarry stool. Skin: Positive for pallor. Exam: 22:31 Constitutional: This is a well developed, well nourished patient who is awake, alert, tash and in no acute distress. Head/Face: Normocephalic, atraumatic. Eyes: Pupils equal round and reactive to light, extra-ocular motions intact. Lids and lashes normal. Conjunctiva and sclera are non-icteric and not injected. Cornea within normal limits. Periorbital areas with no swelling, redness, or edema. ENT: Nares patent. No nasal discharge, no septal abnormalities noted. Tympanic membranes are normal and external auditory canals are clear. Oropharynx with no redness, swelling, or masses, exudates, or evidence of obstruction, uvula midline. Mucous membranes moist. Neck: Trachea midline, no thyromegaly or masses palpated, and no cervical lymphadenopathy. Supple, full range of motion without nuchal rigidity, or vertebral point tenderness. No Meningismus. Chest/axilla: Normal chest wall appearance and motion. Nontender with no deformity. No lesions are appreciated. Cardiovascular: Regular rate and rhythm with a normal S1 and S2. No gallops, murmurs, or rubs. Normal PMI, no JVD. No pulse deficits. Respiratory: Lungs have equal breath sounds bilaterally, clear to auscultation and percussion. No rales, rhonchi or wheezes noted. No increased work of breathing, no retractions or nasal flaring. Back: No spinal tenderness. No costovertebral tenderness. Full range of motion. Female : Normal external genitalia. MS/ Extremity: Pulses equal, no cyanosis. Neurovascular intact. Full, normal range of motion. Neuro: Awake and alert, GCS 15, oriented to person, place, time, and situation. Cranial nerves II-XII grossly intact. Motor strength 5/5 in all extremities. Sensory grossly intact. Cerebellar exam normal. Normal gait. Psych: Awake, alert, with orientation to person, place and time. Behavior, mood, and affect are within normal limits. 22:31 Abdomen/GI: Inspection: abdomen appears normal, Bowel sounds: normal, Palpation: mild abdominal tenderness, in all quadrants, Rectal exam: rectal tone normal, Stool: guaiac positive, black, hemorrhoid(s), are not appreciated, mass, is not appreciated, swelling, is not appreciated, tenderness, is not appreciated, the exam is chaperoned by the nurse, Liver: no appreciated palpable abnormalities, Hernia: not appreciated. 23:28 ECG was reviewed by the Attending Physician. tash Vital Signs: 22:15 BP 111 / 53; Pulse 81; Resp 15 S; Temp 97.1(C); Pulse Ox 98% on 2 lpm NC; Weight 91 kg as6 (M); Height 5 ft. 7 in. (170.18 cm) (R); Pain 0/10; 23:30 BP 112 / 53; Pulse 79; Resp 14 S; Temp 96.9(C); Pulse Ox 100% on 2 lpm NC; as6 1216 00:30 BP 107 / 81; Pulse 82; Resp 19 S; Temp 97.4(C); Pulse Ox 100% on 2 lpm NC; as6 01:30 BP 105 / 50; Pulse 73; Resp 19 S; Temp 98.6(C); Pulse Ox 100% on 2 lpm NC; as6 02:30 BP 93 / 68; Pulse 78; Resp 17 S; Temp 99.0(C); Pulse Ox 100% on 2 lpm NC; as6 03:12 BP 117 / 81; Pulse 79; Resp 18 S; Temp 98.7(C); Pulse Ox 100% on R/A; as6 03/27 22:15 Body Mass Index 31.42 (91.00 kg, 170.18 cm) as6 Procedures: 03/27 23:19 Central Line: the site was prepped with Betadine, in sterile fashion, a triple lumen tash catheter was inserted, in the right femoral vein, in 3 attempts. placement was verified, by blood return, the site was dressed with using sterile technique, the patient tolerated the procedure, well. MDM: 22:22 Patient medically screened. tash 22:34 Differential diagnosis: diverticulitis, gastroesophageal reflux disease, non-specific tash abd pain, pancreatitis, Peptic Ulcer Disease, Perf. Duodenal Ulcer, Perf. Gastric Ulcer, Peritonitis. Data reviewed: vital signs, nurses notes, lab test result(s), EKG, radiologic studies, plain films. Data interpreted: legal services professional: rate is 89 beats/min, rhythm is regular, Pulse oximetry: on room air is 98 %. Test interpretation: by ED physician or midlevel provider: ECG, plain radiologic studies. Counseling: I had a detailed discussion with the patient and/or guardian regarding: the historical points, exam findings, and any diagnostic results supporting the discharge/admit diagnosis, lab results, radiology results, the need for further work-up and treatment in the hospital. 03/27 22:29 Order name: Basic Metabolic Panel; Complete Time: 23:58 [facility] 03/27 22:29 Order name: CBC with Diff; Complete Time: 01:13 [facility] 03/27 22:29 Order name: LFT's; Complete Time: 23:58 [facility] 03/27 22:29 Order name: Magnesium; Complete Time: 23:58 [facility] 03/27 22:29 Order name: NT PRO-BNP; Complete Time: 23:58 [facility] 03/27 22:29 Order name: PT-INR; Complete Time: 01:13 [facility] 03/27 22:29 Order name: Troponin HS; Complete Time: 23:58 [facility] 03/27 22:29 Order name: Type And Screen [facility] 03/27 22:31 Order name: SARS RAPID; Complete Time: 23:58 [facility] 03/27 22:31 Order name: Lactate w/ 2H reflex if indic.; Complete Time: 23:58 [facility] 03/27 23:47 Order name: CBC with Diff; Complete Time: 00:24 [facility] 03/28 00:03 Order name: Packed RBC Leukored [facility] 03/27 22:29 Order name: XRAY Chest (1 view) [facility] 03/27 22:29 Order name: Cardiac monitoring; Complete Time: 22:41 [facility] 03/27 22:29 Order name: EKG - Nurse/Tech; Complete Time: 23:30 [facility] 03/27 22:29 Order name: IV Saline Lock; Complete Time: 22:41 [facility] 03/27 22:29 Order name: Labs collected and sent; Complete Time: 23:18 [facility] 03/27 22:29 Order name: O2 Per Protocol; Complete Time: 23:01 [facility] 03/27 22:29 Order name: O2 Sat Monitoring; Complete Time: 23:01 [facility] 03/27 22:29 Order name: Transfuse; Complete Time: 01:43 [facility] 03/27 22:31 Order name: CT Abd/Pelvis - Without Contrast [facility] 03/27 22:31 Order name: Central Line Kit; Complete Time: 22:41 [facility] 03/27 22:35 Order name: Abdomen EDAK 03/28 00:48 Order name: ABO/RH no charge EDMS 03/27 22:40 Order name: Tevin; Complete Time: 22:41 tash EC:28 Rate is 83 beats/min. Rhythm is regular. QRS Andrews is Normal. MN interval is normal. QRS tash interval is normal. QT interval is normal. No Q waves. T waves are Normal. No ST changes noted. Clinical impression: NSR w/ Non-specific ST/T Changes and No evidence of ischemia. Interpreted by me. Reviewed by me. Administered Medications: 23:35 Drug: ProTONIX (pantoprazole) 80 mg Route: IVP; Site: right femoral; as6 03/28 01:43 Follow up: Response: No adverse reaction as6 03/27 23:35 Drug: ProTONIX (pantoprazole) 8 mg/hr Route: IV; Rate: 25 ml/hr; Site: right femoral; as6 03/28 03:12 Follow up: Response: No adverse reaction; IV Status: Infusion continued upon transfer; as6 IV Intake: 100ml 03/27 23:35 Drug: Zosyn (piperacillin-tazobactam) 3.375 grams Route: IVPB; Infused Over: 60 mins; as6 Site: right femoral; 03/28 01:43 Follow up: Response: No adverse reaction; IV Status: Completed infusion; IV Intake: as6 100ml Disposition Summary: 03/27/22 22:37 Transfer Ordered Transfer Location: Other Acute Care Facility tash Reason: Higher level of care tash Condition: Fair tash Problem: new tash Symptoms: have improved tash Accepting Physician: to hca, icu(03/28/22 03:14) as6 Diagnosis - Muscle weakness (generalized) tash - GI Bleed/ Gastrointestinal hemorrhage, unspecified - upper tash - Anemia, unspecified tash - Syncope Near tash - Dementia in other diseases classified elsewhere without behavioral disturbance tash - Elevated white blood cell count - thrombocytosis tash Discharge Instructions: - Discharge Summary Sheet wm - CT Scan wm Forms: - Medication Reconciliation Form tash - SBAR form tash Signatures: Dispatcher [employer] EDRaad Dumont MD MD cha Slawson, Ashby, RN RN as6 Kaitlyn Minaya PA-C PALonnie sb4 Corrections: (The following items were deleted from the chart) 03/27 23:38 22:37 to hca, icu tash tash 23:48 23:38 to hca, icu tash tash 03/28 00:23 03/27 23:41 CBC Smear Scan ordered. EDMS EDMS 03/28 00:24 03/27 23:38 Thrombocytopenia, unspecified tash tash 03/28 00:24 03/27 23:48 to hca, icu tash tash 03/28 01:14 00:24 to hca, icu tash tash 03:14 01:14 to hca, icu tash as6
[2022-03-27] MEDS ORDERED: PANTOPRAZOLE 40 MG INJ ONE (23:23)
[2022-03-27] MEDS ORDERED: NA CHLORIDE 0.9% 250 ML ONE (23:23)
[2022-03-27] MEDS ORDERED: NA CHLORIDE 0.9% 100 ML IV ONE (23:23)
[2022-03-27] MEDS ORDERED: PIPERACIL/TAZO 3.375 GM VIAL IV ONE (23:24)
[2022-03-27 23:27] LABS: Absolute Lymphocytes (CBC) 0.3 K/uL (0.7-4.9); MCV 81.8 fL (80-100); MPV 7.3 fL (7.6-11.3); RBC Red Blood Cell Count 2.08 M/uL (3.86-4.86)
[2022-03-27 23:40] LABS: SARS-CoV-2 Antigen Rapid Res Negative (Negative)
[2022-03-27 23:45] LABS: Albumin 2.8 g/dL (3.4-5.0); Bilirubin Direct 0.1 mg/dL (0-0.2); Bilirubin Total 0.3 mg/dL (0.2-1.0); Potassium 3.7 mmol/L (3.5-5.1); Protein, Total 5.5 g/dL (6.4-8.2)
[2022-03-28 00:22] LABS: Absolute Lymphocytes (CBC) 1.2 K/uL (0.7-4.9); Hematocrit 22.5 % (36.0-45.0); Lymphocytes % 6.4 % (15.3-44.8); MCV 80.6 fL (80-100); MPV 7.7 fL (7.6-11.3); RBC Red Blood Cell Count 2.79 M/uL (3.86-4.86)
[2022-03-28] MEDS ORDERED: NA CHLORIDE 0.9% 250 ML ONE ×2 (01:10→01:59)
[2022-03-28 01:12] LABS: Protime INR 1.3
--- NOTE | 2022-03-28 03:15 | ER ---
Nurse's Notes [facility] Name: July Burton Age: 76 yrs Sex: Female : 1945 Arrival Date: 03/27/2022 Time: 22:22 Bed 4 Private MD: Diagnosis: Muscle weakness (generalized);GI Bleed/ Gastrointestinal hemorrhage, unspecified-upper;Anemia, unspecified;Syncope Near;Dementia in other diseases classified elsewhere without behavioral disturbance;Elevated white blood cell count-thrombocytosis Presentation: 03/27 22:00 Chief complaint: EMS states: called out for vomiting blood and black stools. as6 Coronavirus screen: At this time, the client does not indicate any symptoms associated with coronavirus-19. Ebola Screen: No symptoms or risks identified at this time. Initial Sepsis Screen: Does the patient meet any 2 criteria? No. Patient's initial sepsis screen is negative. Does the patient have a suspected source of infection? No. Patient's initial sepsis screen is negative. Risk Assessment: Do you want to hurt yourself or someone else? Patient reports no desire to harm self or others. Onset of symptoms is unknown. 22:00 Method Of Arrival: EMS: [facility] as6 22:00 Acuity: MARCUS 2 as6 Historical: - Allergies: 03/28 01:21 Codeine; as6 - PMHx: 01:21 Alzheimers; Dementia; Glaucoma; Hyperlipidemia; Hypertension; as6 - Immunization history:: Adult Immunizations up to date. - Social history:: Smoking status: Patient denies any tobacco usage or history of. - Family history:: not pertinent. Screenin:51 [facility] ED Fall Risk Assessment (Adult) Score/Fall Risk Level 0 - 2 = Low Risk. Jeronimo as6 Dumpty Scale Fall Assessment Tool (age< 18yrs) Fall Risk Score/ Level Low Fall Risk: </= 11 points. Abuse screen: Denies threats or abuse. Denies injuries from another. Nutritional screening: No deficits noted. Tuberculosis screening: No symptoms or risk factors identified. Fall Risk Total Negro Fall Scale indicates No Risk (0-24 pts). Assessment: 03/27 22:00 General: Appears ill, Behavior is calm, cooperative. Pain: Denies pain. Neuro: Level of as6 Consciousness is obeys commands, confused, lethargic, Oriented to person. GI: Stools are reported to be black. Parent/caregiver reports the patient having vomiting. Derm: Skin is pale. 03/28 00:00 General: Appears in no apparent distress. Behavior is calm, cooperative. Neuro: Level as6 of Consciousness is awake, alert, obeys commands. 01:40 General: 1st unit on blood started. as6 02:45 General: 2nd unit on blood started . as6 03:14 General: blood transfusion continued upon transfer . as6 Vital Signs: 03/27 22:15 BP 111 / 53; Pulse 81; Resp 15 S; Temp 97.1(C); Pulse Ox 98% on 2 lpm NC; Weight 91 kg as6 (M); Height 5 ft. 7 in. (170.18 cm) (R); Pain 0/10; 23:30 BP 112 / 53; Pulse 79; Resp 14 S; Temp 96.9(C); Pulse Ox 100% on 2 lpm NC; as6 16 00:30 BP 107 / 81; Pulse 82; Resp 19 S; Temp 97.4(C); Pulse Ox 100% on 2 lpm NC; as6 01:30 BP 105 / 50; Pulse 73; Resp 19 S; Temp 98.6(C); Pulse Ox 100% on 2 lpm NC; as6 02:30 BP 93 / 68; Pulse 78; Resp 17 S; Temp 99.0(C); Pulse Ox 100% on 2 lpm NC; as6 03:12 BP 117 / 81; Pulse 79; Resp 18 S; Temp 98.7(C); Pulse Ox 100% on R/A; as6 03/27 22:15 Body Mass Index 31.42 (91.00 kg, 170.18 cm) as6 ED Course: 03/27 22:20 Abarca cath inserted, using sterile technique, 16 Fr., by used car renovator, balloon inflated, to as6 gravity drainage. 22:22 Patient arrived in ED. tash 22:22 Raad Cruz MD is Attending Physician. tash 22:40 Assisted provider with central line placement. Set up central line tray. Triple lumen as6 line placed in right femoral. Line placed by Raad Cruz MD Placement verified by blood return, Dressed with Tegaderm, Blood was collected. Patient tolerated well. 22:41 Slawson, Kountze, RN is Primary Nurse. as6 23:02 Triage completed. as6 23:27 Arm band placed on. as6 23:46 XRAY Chest (1 view) In Process Unspecified. EDMS 23:55 Initiated transfer to [facility], spoke with Graeme. 03/28 00:15 Abdomen In Process Unspecified. EDMS 01:51 Placed in gown. Bed in low position. Call light in reach. Side rails up X2. Adult w/ as6 patient. Client placed on continuous cardiac and pulse oximetry monitoring. NIBP monitoring applied. Warm blanket given. 01:51 Maintain EMS IV. Dressing intact. Good blood return noted. Site clean \T\ dry. Gauge \T\ as 6 site: 20g RAC. 03:09 Patient transferred, IV remains in place. as6 Administered Medications: 03/27 23:35 Drug: ProTONIX (pantoprazole) 80 mg Route: IVP; Site: right femoral; as6 03/28 01:43 Follow up: Response: No adverse reaction as6 03/27 23:35 Drug: ProTONIX (pantoprazole) 8 mg/hr Route: IV; Rate: 25 ml/hr; Site: right femoral; as6 03/28 03:12 Follow up: Response: No adverse reaction; IV Status: Infusion continued upon transfer; as6 IV Intake: 100ml 03/27 23:35 Drug: Zosyn (piperacillin-tazobactam) 3.375 grams Route: IVPB; Infused Over: 60 mins; as6 Site: right femoral; 03/28 01:43 Follow up: Response: No adverse reaction; IV Status: Completed infusion; IV Intake: as6 100ml Medication: 01:51 VIS not applicable for this client. as6 Intake: 01:43 IV: 100ml; Total: 100ml. as6 03:12 IV: 100ml; Total: 200ml. as6 Output: 03:13 Urine: 625ml (Abarca); Total: 625ml. as6 Outcome: 03/27 22:37 ER care complete, transfer ordered by . [facility] 03/28 03:09 Transferred by ground EMS to other acute care facility: [facility] . Transfer form as6 completed. X-rays sent w/ patient. Condition: stable Instructed on the need for transfer. 03:14 Patient left the ED. as6 Signatures: Dispatcher [employer] Raad Rutherford MD MD cha Marsh, Wendy wm Slawson, Ashby, ALEX RN as6
[2022-03-28 03:21] VITALS: O2SAT 100
[2022-03-28 03:27] VITALS: BP 117/81; TEMP 98.7
--- NOTE | 2022-03-28 17:34 | RAD REPORT ---
EXAM DESCRIPTION: CT - Abdomen Pelvis Wo Contrast - 03/28/2022 6:25 am CLINICAL HISTORY: Abdominal pain, acute, nonlocalized COMPARISON: 09/26/2018 TECHNIQUE: CT of the abdomen and pelvis without IV contrast. Evaluation of the solid organs and vasc ulature is suboptimal due to lack of IV contrast. This exam was performed according to our department al dose-optimization program, which includes automated exposure control, adjustment of the mA and/or kV according to patient size and/or use of iterative reconstruction technique. FINDINGS: Lung Bases: Minimal dependent atelectasis. Bones: Multilevel endplate spondylosis and facet arthropathy. Osteoarthritic change of the hips. Abdomen: Liver: The liver has normal size and density. Gallbladder: No calcified gallstones. Spleen, Pancreas, and Adrenal Glands: Splenomegaly. Coarse calcifications of the pancreas with fatt y replacement of the pancreas. Adrenal glands are unremarkable. Kidneys: The kidneys have normal size without evidence of hydronephrosis. No obstructing ureteral jenny culi. Vasculature: Aortoiliac atherosclerosis. IVC is unremarkable. Stomach: Small hiatal hernia. Other: No free intraperitoneal air. No free fluid or lymphadenopathy. Pelvis: Bladder: Abarca catheter in place. Bowel: No dilated loops of large or small bowel. Mild wall thickening of the transverse and proxima l descending colon which is not well distended. Scattered diverticula colon. Appendix: Not identified. Pelvis: 6.8 cm right adnexal cyst slightly decreased in size from comparison study. Uterus is not enl arged. IMPRESSION: 1. Mild wall thickening of the transverse and proximal descending colon which is not w ell distended. These findings could be seen with nonspecific colitis. 2. Splenomegaly. 3. 6.8 cm right adnexal cyst slightly decreased in size from comparison study. Follow-up pelvic ult rasound recommended. 4. Diverticulosis without evidence of acute diverticulitis. 5. Coarse calcifications of the pancreas may be related to chronic pancreatitis. Electronically signed by: Kulwant Driscoll 03/28/2022 12:34 AM BENZENE WASHER OPERATOR Due to temporary technical issues with the PACS/Fluency reporting system, reports are being signed by the in house radiologists without review as a courtesy to insure prompt reporting. The interpreting radiologist is fully responsible for the content of the report.
--- NOTE | 2022-03-28 17:38 | RAD REPORT ---
EXAM DESCRIPTION: RAD - Chest Single View - 03/27/2022 11:45 pm CLINICAL HISTORY: COUGH COMPARISON: None. FINDINGS: Single frontal radiograph view of the chest. Cardiomediastinal silhouette: Normal size and contour. Lungs: No consolidation, pneumothorax, or pleural effusion. Bones: No acute osseous abnormality. Leads overlie the chest. Upper abdomen: No abnormality identified. IMPRESSION: 1. No acute pulmonary process identified. Electronically signed by: Kulwant Driscoll 03/27/2022 11:57 PM CLAIM PROCESSOR Due to temporary technical issues with the PACS/Fluency reporting system, reports are being signed by the in house radiologists without review as a courtesy to insure prompt reporting. The interpreting radiologist is fully responsible for the content of the report.
== END 2022-03-28 03:14 ==
LOC: ER 22:15
PROC: 30233N1 Transfusion of Nonautologous Red Blood Cells into Peripheral Vein, Percutaneous Approach (ICD-10-PCS; principal; 2022-03-28)
DX: D64.9 Anemia, unspecified (principal); M62.81 Muscle weakness (generalized); D75.839 Thrombocytosis, unspecified; D72.829 Elevated white blood cell count, unspecified; R55 Syncope and collapse; G30.9 Alzheimer's disease, unspecified; F02.80 Dementia in other diseases classified elsewhere, unspecified severity, without behavioral disturbance, psychotic disturbance, mood disturbance, and anxiety; I10 Essential (primary) hypertension; Z88.5 Allergy status to narcotic agent; Z20.822 Contact with and (suspected) exposure to COVID-19
CPT/HCPCS: 96365; 96368; 85025 ×2; 80048; 36415; 86900; 83735; 86850; 85610; 86901; 80076; 83605; 84484; 83880; 74176; 71045; 51702; 99285; 96366; 87811; 36430; J2543; C9113; P9016 ×2; J7050 ×3

== ENCOUNTER 2022-03-29 17:27 | Emergency (ER) | payer OTHER ==
[2022-03-29] MEDS ORDERED: SODIUM BICARB 50 MEQ/50ML VIAL IV ONE (17:28)
[2022-03-29] MEDS ORDERED: EPINEPHrine 1 MG/10 ML SYR IV ONE (17:28)
--- OUTSIDE RECORDS SUMMARY | 2022-03-29 17:32 | XMS REPORT | Continuity of Care Document ---
:1945 Author Organization [facility] t Address [address] [place] [address] Care Team Providers Name Role Phone Erica Correa Attending Clinician Unavailable Ozzy MARK, Derek Attending Clinician Robbie Mercado DO Attending Clinician Bernabe MARK, Claudette Calhoun Attending Clinician [phone], [facility] Attending Clinician Unavailable Doctor Unassigned, [place] Attending Clinician Unavailable Erica Correa Admitting Clinician Unavailable Physician, No Primary or Family Admitting Clinician Unavaila ble Payers Payer Name Policy Type Policy Number Effective Date Expiration Date S ource Problems Condition Condition Condition Status Onset Resolution Last Treating Co mments Source Name Details Category Date Date Treatment Clinician Date Status Status Disease Active [facility] post post 6-15 [place] endovenous endovenous 00:00: of radiofrequ radiofrequ 00 Me dicin ency ency e ablation ablation (RFA) of (RFA) of saphenous saphenous vein vein Venous Venous Disease Active [facility] insufficie insufficie 1-12 Co llege ncy ncy 00:00: of 00 Medicin e Occasional Occasional Disease Active U nivers tremors tremors 6-12 ity of 00:00: [place] 00 Medical Branch Essential Essential Disease Active Uni vers hypertensi hypertensi 6-12 it y of on on 00:00: [place] 00 Medical Branch Glaucoma, Glaucoma, Disease Active Uni vers unspecifie unspecifie 6-12 it y of d d 00:00: [place] glaucoma, glaucoma, 00 Medi jenny unspecifie unspecifie Br anch d d laterality laterality Memory Memory Disease Active [facility] loss loss 6-12 ity of 00:00: [place] 00 Medical Branch Memory Memory Disease Active [facility] loss loss 6-12 ity of 00:00: [place] 00 Medical Branch Hyperlipid Hyperlipid Disease Active U nivers emia, emia, 6-12 ity of unspecifie unspecifie [place] 00 Medical hyperlipid hyperlipid Br anch emia type emia type Type 2 Type 2 Disease Active Univers diabetes diabetes 612 ity of mellitus mellitus 00:00: [place] without without 00 Medical complicati complicati Br anch on, on, without without long-term long-term current current use of use of insulin insulin Allergies, Adverse Reactions, Alerts Allergy Allergy Status Severity Reaction(s) Onset Inactive Treating Comm ents Source Name Type Date Date Clinician codeine DA Active U UNKNOWN 2021-04 [facility] 216 Clear 00:00: [place] 00 [facility] Codeine Propensi Active Swelling [facility] ty to 813 [place] adverse 00:00: of reaction 00 Medicin s to e drug Codeine Propensi Active Anaphylaxis [place] ty to 8-13 ity of adverse 00:00: [place] reaction 00 Medical s Branch Pregabal Propensi Active Hallucinatio [facility] in ty to ns 2-27 [place] adverse 00:00: of reaction 00 Medicin s to e drug Pregabal Propensi Active Hallucinatio [facility] in ty to ns 2-27 ity of adverse 00:00: [place] reaction 00 Medical s Branch Potassiu Propensi Active Hallucinatio [facility] ty to ns 6-12 [place] Gluconat adverse 00:00: of e reaction 00 Medicin s to e drug Tramadol Propensi Active Hallucinatio 2017-0 [facility] Hcl ty to 6-12 [place] adverse 00:00: of reaction 00 Medicin s to e drug Amitript Propensi Active Hallucinatio 2017-0 [facility] yline ty to ns 6-12 [place] Hcl adverse 00:00: of reaction 00 Medicin s to e drug Baclofen Propensi Active Hallucinatio 2017-0 [facility] ty to 6-12 [place] adverse 00:00: of reaction 00 Medicin s to e drug Docusate Propensi Active Hallucinatio 2017-0 [place] Sodium ty to 6-12 [place] adverse 00:00: of reaction 00 Medicin s to e drug Furosemi Propensi Active Hallucinatio 2017-0 [place] de ty to 6-12 [place] adverse 00:00: of reaction 00 Medicin s to e drug Gabapent Propensi Active Hallucinatio 2017-0 [place] in ty to 6-12 [place] adverse 00:00: of reaction 00 Medicin s [...] Medical s Branch Hydrocod Propensi Active Dizziness Uni vers one ty to 612 ity of Bitartra adverse 00:00: [place] te reaction 00 Medical s Branch Meloxica Propensi Active Hallucinatio [facility] m ty to ns 12 ity of adverse 00:00: [place] reaction 00 Medical s Branch Hydrocod Propensi Active Other (See Dizzines [facility] one ty to Comments) 12 s College adverse 00:00: of reaction 00 Medicin s to e drug Meloxica Propensi Active Hallucinatio [place] m ty to ns 12 College adverse 00:00: of reaction 00 Medicin s to e drug Social History Social Habit Start Date Stop Date Quantity Comments Source Exposure to Not sure [facility]2 (event) Medici ne Sex Assigned At [facility] Alcohol intake 2020-09-25 2020-09-25 Lifetime [facility] Col lege of 00:00:00 00:00:00 non-drinker Medicine (finding) Cigarettes smoked 2020-04-20 2020-04-20 [facility] of current (pack per 00:00:00 00:00:00 Medicin e day) - Reported Cigarette 2020-04-20 2020-04-20 [facility] of pack-years 00:00:00 00:00:00 Medicine Tobacco use and 2020-04-20 2020-04-20 Never used [facility] Co llege of exposure 00:00:00 00:00:00 Medicine Tobacco Comment 2016-09-22 2016-09-22 quit 1985 Universit [facility] of 00:00:00 00:00:00 [facility] History of tobacco 1984-04-13 Smoker [facility] of use 00:00:00 Medicine Smoking Status Start Date Stop Date Source Former smoker 2020-04-20 00:00:00 2020-04-20 00:00:00 [facility] ollege of Medicine Medications Ordered Filled Start Stop Current Ordering Indication Dosage Frequency Signature Comments Components Source Medication Medication Date Date Medication? Clinician (SIG) Name Name Multiple Yes 1{tbl} Take 1 [facility] Vitamin 6-11 Tablet by [place] (MULTI-IRENE 10:09: mouth. of MIN) TABS 38 Medicin e [place]-3 Yes [facility] Fatty Acids 6-11 [place] (FISH OIL) 10:09: of 1000 MG 38 Medicin CAPS e Multiple Yes 1{tbl} Take 1 [facility] Vitamin 1-08 Tablet by [place] (MULTI-IRENE 18:16: mouth. of MIN) TABS 25 Medicin e [place]-3 Yes [facility] Fatty Acids 1-08 [place] (FISH OIL) 18:16: of 1000 MG 25 Medicin CAPS e Multiple Yes 1{tbl} Take 1 [facility] Vitamin 1-08 Tablet by [place] (MULTI-IRENE 18:16: mouth. of MIN) TABS 25 Medicin e [place]-3 Yes [facility] Fatty Acids 1- [place] (FISH OIL) 18:16: of 1000 MG 25 Medicin CAPS e APPLE CIDER 2020- No Take by Benoit KENDALL OR 08 01-08 mouth. Colleg e 18:16: 00:00 of 17 :00 Medicin e hydrochloro 2020-1 Yes daily. [facility] thiazide 2-29 College (HYDRODIURI 00:00: of L) 25 MG 00 Medicin tablet e hydrochloro 2020-1 Yes daily. [facility] thiazide 2-29 College (HYDRODIURI 00:00: of L) 25 MG 00 Medicin tablet e hydrochloro 2020-1 Yes daily. [facility] thiazide 2-29 College (HYDRODIURI 00:00: of L) 25 MG 00 Medicin tablet e hydroxyurea 2020- Yes [facility] (HYDREA) 2-14 [place] 500 MG 00:00: of capsule 00 Medicin e hydroxyurea 2020- Yes [facility] (HYDREA) 2-14 [place] 500 MG 00:00: of capsule 00 Medicin e hydroxyurea 2020-1 Yes [facility] (HYDREA) 2-14 [place] 500 MG 00:00: of capsule 00 Medicin e pravastatin 2019 Yes [id number] TAKE ONE Univers 10 mg 0-03 TABLET BY ity of tablet 00:00: MOUTH [place] 00 EVERY Medical NIGHT AT Branch BEDTIME pravastatin 2019 Yes [id number] TAKE ONE Univers 10 mg 0-03 TABLET BY ity of tablet 00:00: MOUTH [place] 00 EVERY Medical NIGHT AT Branch BEDTIME pravastatin 2019 Yes [id number] TAKE ONE Univers 10 mg 0-03 TABLET BY ity of tablet 00:00: MOUTH [place] EVERY Medical NIGHT AT Branch BEDTIME pravastatin 2019- Yes [id number] TAKE ONE Univers 10 mg 0-03 TABLET BY ity of tablet 00:00: MOUTH [place] EVERY Medical NIGHT AT Branch BEDTIME APPLE CIDER 2019- No Take by [facility] [place] VINEGAR 8 08-15 mouth ity of ORAL 21:57: 00:00 daily. [place] 24 :00 Medical Branch brinzolamid 2019- No Place in U nivers e-brimonidi 815 each eye ity of ne 21:57: 00:00 daily. [place] (SIMBRINZA) 24 :00 Medical 1-0.2 % Branch ophthalmic drops bimatoprost 2019- No 1[drp] Place 1 Univers 0.03 % 11-25-15 Drop in ity of ophthalmic 21:57: 00:00 [place] eyes [place] drops 24 :00 daily. Medical Branch APPLE CIDER 2019- No Take by [facility] [place] VINEGAR 11-25-15 mouth ity of ORAL 21:57: 00:00 daily. [place] 24 :00 Medical Branch brinzolamid 2019- No Place in U nivers e-brimonidi 11-2515 each eye ity of ne 21:57: 00:00 daily. [place] (SIMBRINZA) 24 :00 Medical 1-0.2 % Branch ophthalmic drops bimatoprost 2019- No 1[drp] Place 1 Univers 0.03 % 11-25-15 Drop in ity of ophthalmic 21:57: 00:00 [place] eyes [place] drops 24 :00 daily. Medical Branch aspirin 325 2019- Yes [id number] 325mg Take 325 Univers mg tablet 8-13 mg by ity of 20:23: mouth [place] 19 daily. Medical Branch PHENAZOPYRI Yes Take by Uni vers DINE HCL 8- mouth 2 ity of (AZO ORAL) 20:23: (two) [place] 19 times Medical daily. Branch COCONUT OIL Yes Apply to [facility] [place] TOPICAL 11-23 area(s). ity of 20:23: Mixed with [place] 19 mint. Uses Medical prn for Branch muscle pain. multivitami Yes 1{tbl} Take 1 [place] n tablet 8-13 tablet by ity of 20:23: mouth [place] 19 daily. Medical Branch Zinc 50 mg 2019-0 Yes 25mg Take 25 mg U nivers Tab 8-13 by mouth. ity of 20:23: Medical Branch LATANOPROST Yes Univer s , BULK, 8-13 ity of MISC 20:23: Medical Branch cyanocobala Yes Place Unive rs min/cobamam 8-13 under the ity of [place] (B12 20:23: tongue. [facility]) 19 Medical Branch cinnamon Yes Take by Univer s bark 8-13 mouth ity of (CINNAMON 20:23: daily. [place] ORAL) 19 Medical Branch thiamine Yes 100mg Take 100 Univ ers (VITAMIN 8-13 mg by ity of B-1) 100 mg 20:23: mouth [place] tablet 19 daily. Medical Branch aspirin 325 Yes [id number] 325mg Take 325 Univers mg tablet 8-13 [...] Tab 8-13 by mouth. ity of 20:23: Medical Branch LATANOPROST 0 Yes Univer s , BULK, 8-13 ity of MISC 20:23: Medical Branch cyanocobala Yes Place Unive rs min/cobamam 8-13 under the ity of [place] (B12 20:23: tongue. [place] SL) 19 Medical Branch cinnamon Yes Take by Univer s bark 8-13 mouth ity of (CINNAMON 20:23: daily. [place] ORAL) 19 Medical Branch thiamine Yes 100mg Take 100 Univ ers (VITAMIN 8-13 mg by ity of B-1) 100 mg 20:23: mouth [place] tablet 19 daily. Medical Branch aspirin 325 2018- Yes [id number] 325mg Take 325 Univers mg tablet 8-13 [...] BULK, 8- ity of MISC 20:23: [place] 19 Medical Branch cyanocobala Yes Place Unive rs min/cobamam 8 under the ity of [place] (B12 20:23: tongue. [place] SL) 19 Medical Branch cinnamon Yes Take by Univer s bark 8-13 mouth ity of (CINNAMON 20:23: daily. [place] ORAL) 19 Medical Branch thiamine Yes 100mg Take 100 Univ ers (VITAMIN 8-13 mg by ity of B-1) 100 mg 20:23: mouth [place] tablet 19 daily. Medical Branch aspirin 325 Yes [id number] 325mg Take 325 Univers mg tablet 8-13 [...] Tab 8-13 by mouth. ity of 20:23: Medical Branch LATANOPROST 2018-0 Yes Univer s [...] daily. Medical Branch aspirin 325 2018- Yes [id number] 325mg Take 325 Univers mg tablet 8-13 [...] Tab 8-13 by mouth. ity of 20:23: Medical Branch LATANOPROST 2018-0 Yes Univer s , BULK, 8-13 ity of MISC 20:23: Medical Branch cyanocobala [address] Unive rs min/cobamam 8-13 under the ity of [place] (B12 20:23: tongue. [place] SL) 19 Medical Branch cinnamon 2019-0 Yes Take by Univer s bark 8-13 mouth ity of (CINNAMON 20:23: daily. [place] ORAL) 19 Medical Branch thiamine 2018- Yes 100mg Take 100 Univ ers (VITAMIN 8-13 mg by ity of B-1) 100 mg 20:23: mouth [place] tablet 19 daily. Medical Branch aspirin 325 2018- Yes [id number] 325mg Take 325 Univers mg tablet 8-13 [...] Medical prn for Branch muscle pain. multivitami 0 Yes 1{tbl} Take 1 [place] n tablet 8-13 tablet by ity of 20:23: mouth [place] 19 daily. Medical Branch Zinc 50 mg 2018-0 Yes 25mg Take 25 mg U nivers Tab 8-13 by mouth. ity of 20:23: [place] 19 Medical Branch LATANOPROST 2018-0 Yes Univer s , BULK, 8 ity of MISC 20:23: [place] 19 Medical Branch cyanocobala [address] Unive rs min/cobamam 11-23 under the ity of [place] (B12 20:23: tongue. [place] SL) 19 Medical Branch cinnamon [facility]13 mouth ity of (CINNAMON 20:23: daily. [place] ORAL) 19 Medical Branch thiamine 2018-0 Yes 100mg Take 100 Univ ers (VITAMIN 8-13 mg by ity of B-1) 100 mg 20:23: mouth [place] tablet 19 daily. Medical Branch aspirin 325 2018- Yes [id number] 325mg Take 325 Univers mg tablet 8-13 [...] Medical prn for Branch muscle pain. multivitami 20190 Yes 1{tbl} Take 1 [place] n tablet 8-13 tablet by ity of 20:23: mouth [place] 19 daily. Medical Branch Zinc 50 mg 2019-0 Yes 25mg Take 25 mg U nivers Tab 8-13 by mouth. ity of 20:23: Medical Branch LATANOPROST 0 Yes Univer s , BULK, 8-13 ity of MISC 20:23: Medical Branch cyanocobala Yes Place Unive rs min/cobamam 8-13 under the ity of [place] (B12 20:23: tongue. [facility]) 19 Medical Branch cinnamon Yes Take by Univer s bark 8-13 mouth ity of (CINNAMON 20:23: daily. [place] ORAL) 19 Medical Branch thiamine Yes 100mg Take 100 Univ ers (VITAMIN 8-13 mg by ity of B-1) 100 mg 20:23: mouth [place] tablet 19 daily. Medical Branch aspirin 325 2019- Yes [id number] 325mg Take 325 Univers mg tablet 8-13 [...] Medical prn for Branch muscle pain. multivitami 0 Yes 1{tbl} Take 1 [place] n tablet 8-13 tablet by ity of 20:23: mouth [place] 19 daily. Medical Branch Zinc 50 mg 2019-0 Yes 25mg Take 25 mg U nivers Tab 8-13 by mouth. ity of 20:23: Medical Branch LATANOPROST 2019-0 Yes Univer s , BULK, 8-13 ity of MISC 20:23: Medical Branch cyanocobala [address] Unive rs min/cobamam 8-13 under the ity of [place] (B12 20:23: tongue. [facility]) 19 Medical Branch cinnamon Yes Take by Univer s bark 8-13 mouth ity of (CINNAMON 20:23: daily. [place] ORAL) 19 Medical Branch thiamine Yes 100mg Take 100 Univ ers (VITAMIN 8-13 mg by ity of B-1) 100 mg 20:23: mouth [place] tablet 19 daily. Medical Branch aspirin 325 Yes [id number] 325mg Take 325 Univers mg tablet 8-13 [...] Branch LATANOPROST Yes Univer s , BULK, 8 ity of MISC 20:23: [place] [address] Medical Branch [address] Unive rs min/cobamam 8 under the ity of [place] (B12 20:23: tongue. [facility]) 19 Medical Branch cinnamon Yes Take by Univer s bark 8-13 mouth ity of (CINNAMON 20:23: daily. [place] ORAL) 19 Medical Branch thiamine Yes 100mg Take 100 Univ ers (VITAMIN 8-13 mg by ity of B-1) 100 mg 20:23: mouth [place] tablet 19 daily. Medical Branch DONEPEZIL 5 Yes [id number] TAKE ONE Univers mg tablet 7-13 TABLET BY ity o f 00:00: MOUTH [place] 00 EVERY Medical NIGHT AT Branch BEDTIME DONEPEZIL 5 Yes [id number] TAKE ONE Univers mg tablet 7-13 TABLET BY ity o f 00:00: MOUTH [place] 00 EVERY Medical NIGHT AT Branch BEDTIME DONEPEZIL 5 Yes [id number] TAKE ONE Univers mg tablet 7-13 TABLET BY ity o f 00:00: MOUTH [place] 00 [facility] [place] 5 2018-0 Yes [id number] TAKE ONE Univers mg tablet 7-13 TABLET BY ity o f 00:00: MOUTH [place] 00 EVERY Medical NIGHT AT [facility]-0 Yes [id number] TAKE ONE Univers mg tablet 7-13 TABLET BY ity o f 00:00: MOUTH [place] 00 EVERY Medical NIGHT AT [facility] [place] 5 2018-0 Yes [id number] TAKE ONE Univers mg tablet 7-13 TABLET BY ity o f 00:00: MOUTH [place] 00 EVERY Medical NIGHT AT [facility] [place] 5 0 Yes [id number] TAKE ONE Univers mg tablet 7-13 TABLET BY ity o f 00:00: MOUTH [place] 00 EVERY Medical NIGHT AT [facility] [place] 5 2018-0 Yes [id number] TAKE ONE Univers mg tablet 7-13 TABLET BY ity o f 00:00: MOUTH [place] 00 EVERY Medical NIGHT AT [facility] [place] 5 2018-0 Yes [id number] TAKE ONE Univers mg tablet 7-13 TABLET BY ity o f 00:00: MOUTH [place] 00 EVERY Medical NIGHT AT [facility] [place] 5 2018-0 Yes [id number] TAKE ONE Univers mg tablet 7-13 TABLET BY ity o f 00:00: MOUTH [place] 00 EVERY Medical NIGHT AT [facility] [place] 5 2018-0 Yes [id number] TAKE ONE Univers mg tablet 7-13 TABLET BY ity o f 00:00: MOUTH [place] 00 EVERY Medical NIGHT AT [facility] 2018-0 Yes [id number] TAKE ONE Univers mg tablet 7-13 TABLET BY ity o f 00:00: MOUTH [place] 00 EVERY [facility] HY[facility]O 2019-0 Yes [id number] TAKE ONE Univers THIAZIDE 50 6-23 TABLET BY ity of mg tablet 00:00: MOUTH [place] 00 DAILY Medical [place] HYDROCHLORO 2019-0 Yes [id number] TAKE ONE Univers THIAZIDE 50 6-23 TABLET BY ity of mg tablet 00:00: MOUTH [place] 00 DAILY Medical [place] HYDROCHLORO 2019-0 Yes [id number] TAKE ONE Univers THIAZIDE 50 6-23 TABLET BY ity of mg tablet 00:00: MOUTH [place] 00 DAILY Medical [place] HYDROCHLORO 2019-0 Yes [id number] TAKE ONE Univers THIAZIDE 50 6-23 TABLET BY ity of mg tablet 00:00: MOUTH [place] DAILY Medical Branch HYDROCHLORO 2019-0 Yes [id number] TAKE ONE Univers THIAZIDE 50 6-23 TABLET BY ity of mg tablet 00:00: MOUTH DAILY Medical Branch HYDROCHLORO 2019-0 Yes [id number] TAKE ONE Univers THIAZIDE 50 6-23 TABLET BY ity of mg tablet 00:00: MOUTH [place] DAILY Medical Branch HYDROCHLORO 2019-0 Yes [id number] TAKE ONE Univers THIAZIDE 50 6-23 TABLET BY ity of mg tablet 00:00: MOUTH [place] DAILY Medical Branch HYDROCHLORO 2019-0 Yes [id number] TAKE ONE Univers THIAZIDE 50 6-23 TABLET BY ity of mg tablet 00:00: [facility] DAILY Medical Branch HYDROCHLORO 2019-0 Yes [id number] TAKE ONE Univers THIAZIDE 50 6-23 TABLET BY ity of mg tablet 00:00: [facility] DAILY Medical Branch HYDROCHLORO 2019-0 Yes [id number] TAKE ONE Univers THIAZIDE 50 6-23 TABLET BY ity of mg tablet 00:00: MOUTH [place] DAILY Medical Branch HYDROCHLORO 2019-0 Yes [id number] TAKE ONE Univers THIAZIDE 50 6-23 TABLET BY ity of mg tablet 00:00: [facility] DAILY Medical Branch HYDROCHLORO 2019-0 Yes [id number] TAKE ONE Univers THIAZIDE 50 6-23 TABLET BY ity of mg tablet 00:00: [facility] DAILY Medical Branch pravastatin 2019-0 Yes [id number] TAKE ONE Univers 10 mg 6-21 TABLET BY ity of tablet 00:00: [facility]0 Yes [id number] TAKE ONE Univers 10 mg 6-21 TABLET BY ity of tablet 00:00: [facility]0 Yes [id number] TAKE ONE Univers 10 mg 6-21 TABLET BY ity of tablet 00:00: [facility] EVERY [facility]-0 Yes [id number] TAKE ONE Univers 10 mg 6-21 TABLET BY ity of tablet 00:00: [facility] 2019-0 Yes [id number] TAKE ONE Univers 10 mg 6-21 TABLET BY ity of tablet 00:00: MOUTH [place] 00 EVERY Medical NIGHT AT Branch BEDTIME pravastatin 2019- Yes [id number] TAKE ONE Univers 10 mg 6-21 TABLET BY ity of tablet 00:00: MOUTH [place] 00 EVERY Medical NIGHT AT Branch BEDTIME pravastatin 2018-0 Yes [id number] TAKE ONE Univers 10 mg 6-21 TABLET BY ity of tablet 00:00: MOUTH [place] 00 EVERY Medical NIGHT AT Branch BEDTIME pravastatin 2018-0 Yes [id number] TAKE ONE Univers 10 mg 6-21 TABLET BY ity of tablet 00:00: MOUTH [place] 00 EVERY Medical NIGHT AT Branch BEDTIME aspirin 325 2019- Yes [id number] 325mg Take 325 Univers mg tablet 5-13 mg by ity of 19:52: mouth [place] 08 daily. Medical Branch PHENAZOPYRI Yes Take by Uni vers DINE HCL 5-13 mouth 2 ity of (AZO ORAL) 19:52: (two) [place] [address] times Medical daily. Branch COCONUT OIL Yes Apply to [place] TOPICAL 5-13 area(s). ity of 19:52: Mixed with [place] [address] mint. Uses Medical prn for Branch muscle pain. multivitami Yes 1{tbl} Take 1 [place] n tablet 5-13 tablet by ity of 19:52: mouth [place] [address] daily. Medical Branch Zinc 50 mg Yes 25mg Take 25 mg U nivers Tab 5-13 by mouth. ity of 19:52: [place] [address] Medical Branch LATANOPROST Yes Univer s , BULK, 5-13 ity of MISC 19:52: [place] [address] Medical Branch [address] Unive rs min/cobamam 5-13 under the ity of [place] (B12 19:52: tongue. [place]) Medical Branch APPLE CIDER Yes Take by Uni vers VINEGAR 5-13 mouth ity of ORAL 19:52: daily. [place] [address] Medical Branch cinnamon Yes Take by Univer s bark 5-13 mouth ity of (CINNAMON 19:52: daily. [facility]) Medical Branch brinzolamid Yes Place in [place] e-brimonidi 5-13 each eye ity of ne 19:52: daily. [place] (SIMBRINZA) Medical 1-0.2 % Branch ophthalmic drops thiamine Yes 100mg Take 100 Univ ers (VITAMIN 5-13 mg by ity of B-1) 100 mg 19:52: mouth [place] tablet 08 daily. Medical Branch bimatoprost Yes 1[drp] Place 1 U nivers 0.03 % 5-13 Drop in ity of ophthalmic 19:52: [place] eyes [place] drops 08 daily. Medical Branch aspirin 325 2018- Yes [id number] 325mg Take 325 Univers mg tablet 5-13 mg by ity of 19:52: mouth [place] 08 daily. Medical Branch PHENAZOPYRI Yes Take by Uni vers DINE HCL 5-13 mouth 2 ity of (AZO ORAL) 19:52: (two) [place] 08 times Medical daily. Branch COCONUT OIL Yes Apply to [place] TOPICAL 5-13 area(s). ity of 19:52: Mixed with 08 mint. Uses Medical prn for Branch muscle pain. multivitami Yes 1{tbl} Take 1 [place] n tablet 5-13 tablet by ity of 19:52: mouth [place] 08 daily. Medical Branch Zinc 50 mg Yes 25mg Take 25 mg U nivers Tab 5-13 by mouth. ity of 19:52: [place] [address] Medical Branch LATANOPROST Yes Univer s , BULK, 5- ity of MISC 19:52: [place] [address] Medical Branch [address] Unive rs min/cobamam 5-13 under the ity of [place] (B12 19:52: tongue. [place] SL) Medical Branch APPLE CIDER Yes Take by Uni vers VINEGAR 5-13 mouth ity of ORAL 19:52: daily. [place] [address] Medical Branch cinnamon Yes Take by Univer s bark 5-13 mouth ity of (CINNAMON 19:52: daily. [place] ORAL) Medical Branch brinzolamid Yes Place in [place] e-brimonidi 5-13 each eye ity of ne 19:52: daily. [place] (SIMBRINZA) Medical 1-0.2 % Branch ophthalmic drops thiamine Yes 100mg Take 100 Univ ers (VITAMIN 5-13 mg by ity of B-1) 100 mg 19:52: mouth [place] tablet 08 daily. Medical Branch bimatoprost Yes 1[drp] Place 1 U nivers 0.03 % 5-13 Drop in ity of ophthalmic 19:52: [place] eyes [place] drops 08 daily. Medical Branch aspirin 325 2019- Yes [id number] 325mg Take 325 Univers mg tablet 5-13 mg by ity of 19:52: mouth [place] 08 daily. Medical Branch PHENAZOPYRI Yes Take by Uni vers DINE HCL 5-13 mouth 2 ity of (AZO ORAL) 19:52: (two) [place] 08 times Medical daily. Branch COCONUT OIL Yes Apply to [place] TOPICAL 5-13 area(s). ity of 19:52: Mixed with 08 mint. Uses Medical prn for Branch muscle pain. multivitami Yes 1{tbl} Take 1 [place] n tablet 5-13 tablet by ity of 19:52: mouth [place] 08 daily. Medical Branch Zinc 50 mg Yes 25mg Take 25 mg U nivers Tab 5-13 by mouth. ity of 19:52: Medical Branch LATANOPROST Yes Univer s , BULK, 5-13 ity of MISC 19:52: Medical Branch cyanocobala Yes Place Unive rs min/cobamam 5-13 under the ity of [place] (B12 19:52: tongue. [place] SL) 08 Medical Branch APPLE CIDER Yes Take by Uni vers VINEGAR 5-13 mouth ity of ORAL 19:52: daily. Medical Branch cinnamon Yes Take by Univer s bark 5-13 mouth ity of (CINNAMON 19:52: daily. [place] ORAL) 08 Medical Branch brinzolamid Yes Place in [place] e-brimonidi 5-13 each eye ity of ne 19:52: daily. [place] (SIMBRINZA) Medical 1-0.2 % Branch ophthalmic drops [...] once now. ity of (N-ACETYL-L 00:00: -CYSTEINE [facility]) Branch cholecalcif 0 Yes 1000mg 1,000 mg Univers betty, 3-15 once now. ity of vitamin D3, 00:00: [place] (D3 Medical ORAL) Branch pyridoxine, 0 Yes 25mg Take 25 mg Univers vitamin B6, 3-15 by mouth ity of 50 mg 00:00: once now. [place] tablet Medical Branch acetylcyste Yes 600mg 600 mg Uni vers ine 3-15 once now. ity of (N-ACETYL-L 00:00: [place] CYSTEINE [facility]) Branch cholecalcif Yes 1000mg 1,000 mg Univers betty, 3-15 once now. ity of vitamin D3, 00:00: [place] (D3 Medical ORAL) Branch pyridoxine, Yes 25mg Take 25 mg Univers vitamin B6, 3-15 by mouth ity of 50 mg 00:00: once now. [place] tablet Medical Branch acetylcyste Yes 600mg 600 mg Uni vers ine 3-15 once now. ity of (N-ACETYL-L 00:00: [place] CYSTEINE [facility]) Branch cholecalcif 0 Yes 1000mg 1,000 mg Univers betty, 3-15 once now. ity of vitamin D3, 00:00: [place] (D3 Medical ORAL) Branch pyridoxine, 0 Yes 25mg Take 25 mg Univers vitamin B6, 3-15 by mouth ity of 50 mg 00:00: once now. [place] tablet Medical Branch acetylcyste 0 Yes 600mg 600 mg Uni vers ine 3-15 once now. ity of (N-ACETYL-L 00:00: [place] CYSTEINE [facility]) Branch cholecalcif 0 Yes 1000mg 1,000 mg Univers betty, 3-15 once now. ity of vitamin D3, 00:00: [place] (D3 Medical ORAL) Branch pyridoxine, 0 Yes 25mg Take 25 mg Univers vitamin B6, 3-15 by mouth ity of 50 mg 00:00: once now. [place] tablet 00 Medical Branch acetylcyste 0 Yes 600mg 600 mg Uni vers ine 3-15 once now. ity of (N-ACETYL-L 00:00: -CYSTEINE [facility]) Branch cholecalcif 0 Yes 1000mg 1,000 mg Univers betty, 3-15 once now. ity of vitamin D3, 00:00: [place] (D3 Medical ORAL) Branch pyridoxine, 0 Yes 25mg Take 25 mg Univers vitamin B6, 3-15 by mouth ity of 50 mg 00:00: once now. [place] tablet 00 Medical Branch acetylcyste Yes 600mg 600 mg Uni vers ine 3-15 once now. ity of (N-ACETYL-L 00:00: [place] CYSTEINE [facility]) Branch cholecalcif 0 Yes 1000mg 1,000 mg Univers betty, 3-15 once now. ity of vitamin D3, 00:00: [place] (D3 Medical ORAL) Branch pyridoxine, 0 Yes 25mg Take 25 mg Univers vitamin B6, 3-15 by mouth ity of 50 mg 00:00: once now. [place] tablet Medical Branch acetylcyste Yes 600mg 600 mg Uni vers ine 3-15 once now. ity of (N-ACETYL-L 00:00: [place] CYSTEINE [facility]) Branch cholecalcif 0 Yes 1000mg 1,000 mg Univers betty, 3-15 once now. ity of vitamin D3, 00:00: [place] (D3 Medical ORAL) Branch pyridoxine, 0 Yes 25mg Take 25 mg Univers vitamin B6, 3-15 by mouth ity of 50 mg 00:00: once now. [place] tablet 00 Medical Branch acetylcyste 0 Yes 600mg 600 mg Uni vers ine 3-15 once now. ity of (N-ACETYL-L 00:00: CYSTEINE [facility]) Branch cholecalcif 0 Yes 1000mg 1,000 mg Univers betty, 3-15 once now. ity of vitamin D3, 00:00: [place] (D3 Medical ORAL) Branch pyridoxine, 2018-0 Yes 25mg Take 25 mg Univers vitamin B6, 3-15 by mouth ity of 50 mg 00:00: once now. [place] tablet 00 Medical Branch acetylcyste Yes 600mg 600 mg Uni vers ine 3-15 once now. ity of (N-ACETYL-L 00:00: [place] -CYSTEINE 00 Medical MISC) Branch cholecalcif Yes 1000mg 1,000 mg Univers betty, 3-15 once now. ity of vitamin D3, 00:00: [place] (D3-2000 00 Medical ORAL) Branch pyridoxine, Yes 25mg Take 25 mg Univers vitamin B6, 3-15 by mouth ity of 50 mg 00:00: once now. [place] tablet 00 Medical Branch calcium Yes Take 1 Univers carbonate-v 9-07 tablet a ity of itamin D3 00:00: day [place] 600 mg 00 Medical (1,500 Branch mg)-800 unit per tablet calcium Yes Take 1 Univers carbonate-v 9-07 tablet a ity of itamin D3 00:00: day [place] 600 mg 00 Medical (1,500 Branch mg)-800 unit per tablet calcium Yes Take 1 Univers carbonate-v 9-07 tablet a ity of itamin D3 00:00: day [place] 600 mg 00 Medical (1,500 Branch mg)-800 unit per tablet calcium 2019- No Take 1 Univers carbonate-v 9-07 08-15 tablet a ity of itamin D3 00:00: 00:00 day [place] 600 mg 00 :00 Medical (1,500 Branch mg)-800 unit per tablet calcium 2019- No Take 1 Univers carbonate-v 9-07 08-15 tablet a ity of itamin D3 00:00: 00:00 day [place] 600 mg 00 :00 Medical (1,500 Branch mg)-800 unit per tablet donepezil 2014-0 Yes daily. [facility] (ARICEPT) 5 04-13 College MG tablet 00:00: of 00 Medicin e Pyridoxine Yes [facility] HCl 04-13 [place] (VITAMIN 00:00: of B-6) 25 MG 00 Medicin TABS e donepezil 2014-0 Yes daily. [facility] (ARICEPT) 5 - College MG tablet 00:00: of 00 Medicin e Pyridoxine 2014- Yes [facility] HCl 04-13 [place] (VITAMIN 00:00: of B-6) 25 MG 00 Medicin TABS e donepezil Yes daily. [facility] (ARICEPT) 5 04-13 [place] MG tablet 00:00: of Medicin e Pyridoxine Yes [facility] HCl 04-13 [place] (VITAMIN 00:00: of B-6) 25 MG 00 Medicin TABS e pravastatin Yes 20mg Take 20 mg [facility] (PRAVACHOL) 04-13 by mouth [place] [facility] 20 MG 00:00: daily. of tablet Medicin e aspirin 325 Yes [facility] mg tablet 04-13 [place] 00:00: of Medicin e Lactobacill Yes [facility] (AZO 04-13 College COMPLETE 00:00: of FEMININE Medicin BALANCE OR) e pravastatin Yes 20mg Take 20 mg [facility] (PRAVACHOL) 04-13 by mouth [place] [facility] 20 MG 00:00: daily. of tablet Medicin e aspirin 325 Yes [facility] mg tablet 04-13 [place] 00:00: of Medicin e Lactobacill Yes [facility] (AZO 04-13 [place] COMPLETE 00:00: of FEMININE Medicin BALANCE OR) e pravastatin Yes 20mg Take 20 mg [facility] (PRAVACHOL) 04-13 by mouth [facility] 20 MG 00:00: daily. of tablet Medicin e aspirin 325 Yes [facility] mg tablet 04-13 [place] 00:00: of Medicin e Lactobacill 0 Yes [facility] (AZO 04-13 [place] COMPLETE 00:00: of FEMININE 00 Medicin BALANCE OR) e Immunizations Ordered Filled Immunization Date Status Comments [facility] e Immunization Name Name Influenza High Dose 2019-01-19 Completed Unive rsity of 00:00:00 [facility] Influenza High Dose 2019-01-19 Completed Unive rsity of 00:00:00 [facility] Influenza High Dose 2019-01-19 Completed Unive rsity of 00:00:00 [facility] Influenza High Dose 2019-01-19 Completed Unive rsity of 00:00:00 [facility] Zoster Vaccine 2018-08-26 Completed [facility] 00:00:00 [facility] Zoster Vaccine 2018-08-26 Completed [facility] 00:00:00 [facility] Zoster Vaccine 2018-08-26 Completed University of Recombinant 00:00:00 [facility] Zoster Vaccine 2018-08-26 Completed University of Recombinant 00:00:00 [facility] Zoster Vaccine 2018-05-20 Completed University of Recombinant 00:00:00 [facility] Zoster Vaccine 2018-05-20 Completed University of Recombinant 00:00:00 [facility] Zoster Vaccine 2018-05-20 Completed University of Recombinant 00:00:00 [facility] Zoster Vaccine 2018-05-20 Completed University of Recombinant 00:00:00 [facility] Influenza High Dose 2018-03-03 Completed Unive rsity of 00:00:00 [facility] Influenza High Dose 2018-03-03 Completed Unive rsity of 00:00:00 [facility] Influenza High Dose 2018-03-03 Completed Unive rsity of 00:00:00 [facility] Influenza High Dose 2018-03-03 Completed Unive rsity of 00:00:00 [facility] Influenza High Dose 2018-03-03 Completed Unive rsity of 00:00:00 [facility] Influenza High Dose 2018-03-03 Completed Unive rsity of 00:00:00 [facility] Influenza High Dose 2018-03-03 Completed Unive rsity of 00:00:00 [facility] Influenza High Dose 2018-03-03 Completed Unive rsity of 00:00:00 [facility] Influenza High Dose 2018-03-03 Completed Unive rsity of 00:00:00 [facility] Influenza High Dose 2018-03-03 Completed Unive rsity of 00:00:00 [facility] Influenza High Dose 2018-03-03 Completed Unive rsity of 00:00:00 [facility] Influenza High Dose 2018-03-03 Completed Unive rsity of 00:00:00 [facility] Influenza High Dose 2017-03-03 Completed Unive rsity of 00:00:00 [facility] Influenza High Dose 2017-03-03 Completed Unive rsity of 00:00:00 [facility] Influenza High Dose 2017-03-03 Completed Unive rsity of 00:00:00 [facility] Influenza High Dose 2017-03-03 Completed Unive rsity of 00:00:00 [facility] Influenza High Dose 2017-03-03 Completed Unive rsity of 00:00:00 [facility] Influenza High Dose 2017-03-03 Completed Unive rsity of 00:00:00 [facility] Influenza High Dose 2017-03-03 Completed Unive rsity of 00:00:00 [facility] Influenza High Dose 2017-03-03 Completed Unive rsity of 00:00:00 [facility] Influenza High Dose 2017-03-03 Completed Unive rsity of 00:00:00 [facility] Influenza High Dose 2017-03-03 Completed Unive rsity of 00:00:00 [facility] Influenza High Dose 2017-03-03 Completed Unive rsity of 00:00:00 [facility] Influenza High Dose 2017-03-03 Completed Unive rsity of 00:00:00 [facility] Vital Signs Vital Name Observation Time Observation Value Comments Source Systolic blood 2020-09-21 15:08:00 114 mm[Hg] [facility] pressure Medicine Diastolic blood 2020-09-21 15:08:00 71 mm[Hg] [facility] pressure Medicine Heart rate 2020-09-21 15:08:00 68 /[facility] Body height 2020-09-21 15:08:00 170.2 cm [facility] Body weight 2020-09-21 15:08:00 102.059 [facility] BMI 2020-09-21 15:08:00 35.24 kg/m2 [facility] Systolic blood 2020-06-22 17:08:00 136 mm[Hg] [facility] pressure Medicine Diastolic blood 2020-06-22 17:08:00 77 mm[Hg] [facility] Medicine Heart rate 2020-06-22 17:08:00 78 /min [facility] ollege of [facility] Body height 2020-06-22 17:08:00 170.2 [facility] Body weight 2020-06-22 17:08:00 102.059 [facility] BMI 2020-06-22 17:08:00 35.24 kg/m2 [facility] Systolic blood 2020-04-20 18:09:00 138 mm[Hg] [facility] pressure Medicine Diastolic blood 2020-04-20 18:09:00 65 mm[Hg] [facility] pressure Medicine Heart rate 2020-04-20 18:09:00 91 /min [facility] ollege of Medicine Body height 2020-04-20 18:09:00 170.2 cm [facility] ollege of Medicine Body weight 2020-04-20 18:09:00 102.059 kg [facility] ollege of Medicine BMI 2020-04-20 18:09:00 35.24 kg/m2 [facility] ollege of Medicine Systolic blood 2020-04-20 18:09:00 138 mm[Hg] [facility] Medicine Diastolic blood 2020-04-20 18:09:00 65 mm[Hg] [facility] Medicine Heart rate 2020-04-20 18:09:00 91 /min [facility] ollege of Medicine Body height 2020-04-20 18:09:00 170.2 cm [facility] ollege of Medicine Body weight 2020-04-20 18:09:00 102.059 kg [facility] ollege of Medicine BMI 2020-04-20 18:09:00 35.24 kg/m2 [facility] ollege of Medicine Systolic blood 2018-11-23 20:27:00 101 mm[Hg] Univer sity of pressure [facility] Diastolic blood 2018-11-23 20:27:00 65 mm[Hg] Unive rsity of [facility] Heart rate 2018-11-23 20:27:00 65 /min Universi [facility] Body temperature 2018-11-23 20:27:00 36.5 [place] [facility] Respiratory rate 2018-11-23 20:27:00 20 /min [facility] Body weight 2018-11-23 20:27:00 107.82 kg Universi ty of [facility] BMI 2018-11-23 20:27:00 37.23 kg/m2 [facility] Oxygen saturation in 2018-11-23 20:27:00 96 /min [facility] Arterial blood by [facility] Pulse oximetry Branch Systolic blood 2018-11-23 20:27:00 101 mm[Hg] Univer sity of pressure [facility] Diastolic blood 2018-11-23 20:27:00 65 mm[Hg] Unive rsity of pressure [facility] Heart rate 2018-11-23 20:27:00 65 /min [facility] Body temperature 2018-11-23 20:27:00 36.5 [place] [facility] Respiratory rate 2018-11-23 20:27:00 20 /min [facility] Body weight 2018-11-23 20:27:00 107.82 kg [facility] BMI 2018-11-23 20:27:00 37.23 kg/m2 [facility] Oxygen saturation in 2018-11-23 20:27:00 96 /min [facility] Arterial blood by [facility] Pulse oximetry Branch Procedures Procedure Date / Time Performing Clinician Source Performed AGREEMENTS AUTHORIZATIONS 2018-12-06 05:01:00 Doctor Unassigned, [facility] AND IRREVOCABLE [facility] ASSIGNMENTS (FORM 2001) NO SHOW OR MISSED 2018-11-23 20:03:07 Doctor Unassigned, [facility] APPOINTMENT POLICY [facility] ACKNOWLEDGEMENT AGREEMENTS AUTHORIZATIONS 2018-11-15 05:01:00 Doctor Unassigned, [facility] AND IRREVOCABLE [facility] ASSIGNMENTS (FORM 2001) Plan of Care Planned Activity Planned Date Details Comments Source Future Scheduled 2020-09-25 TETANUS SHOT (ADULT) [facility] Test 14:11:11 [code = TETANUS SHOT of [facility] (ADULT)] Future Scheduled 2020-09-25 Hepatitis C [facility] Test 14:11:11 screening of Medicine (procedure) [code = 470762114] Future Scheduled 2020-09-25 ZOSTER VACCINE (1 of [facility] Test 14:11:11 2) [code = ZOSTER of Medicin e VACCINE (1 of 2)] Future Scheduled 2020-09-25 Screening for [facility] Test 14:11:11 osteoporosis of Medicine (procedure) [code = 340457764] Future Scheduled 2020-09-25 PNEUMOVAX >=65 [facility] Test 14:11:11 (PPSV23) [code = of Medicine PNEUMOVAX >=65 (PPSV23)] Future Scheduled 2020-09-25 MEDICARE AWV [facility] Test 14:11:11 (Initial) [code = of Medicin e MEDICARE AWV (Initial)] Future Scheduled 2020-09-25 FLU VACCINE > 6 [facility] C [facility] Test 14:11:11 MONTHS [code = FLU of Medici ne VACCINE > 6 MONTHS] Future Scheduled 2020-09-25 BMI FOLLOW UP PLAN [employer] Test 14:11:11 [code = BMI FOLLOW of Medici ne UP PLAN] Future Scheduled 2020-09-25 FALL SCREEN [code = [employer] Test 14:11:11 FALL SCREEN] of Medicine Future Scheduled 2020-09-25 COVID-19 Vaccine (1) [employer] Test 14:11:11 [code = COVID-19 of Medicine Vaccine (1)] Future Scheduled COVID-19 Vaccine [facility] Test Evaluation [code = of Medici ne COVID-19 Vaccine Evaluation] Future Scheduled TETANUS SHOT (ADULT) [employer] Test [code = TETANUS SHOT of Medi cine (ADULT)] Future Scheduled HEPATITIS C [facility] Test SCREENING [code = of Medicin e HEPATITIS C SCREENING] Future Scheduled ZOSTER VACCINE (1 of [employer] Test 2) [code = ZOSTER of Medicin e VACCINE (1 of 2)] Future Scheduled FALL SCREEN [code = [employer] [facility] FALL SCREEN] of Medicine Future Scheduled OSTEOPOROSIS [facility] Test SCREENING [code = of Medicin e OSTEOPOROSIS SCREENING] Future Scheduled PNEUMOVAX >=65 [facility] Test (PPSV23) [code = of Medicine PNEUMOVAX >=65 (PPSV23)] Future Scheduled MEDICARE AWV [facility] Test (Initial) [code = of Medicin e MEDICARE AWV (Initial)] Future Scheduled FLU VACCINE > 6 [facility]lege Test MONTHS [code = FLU of Medici ne VACCINE > 6 MONTHS] Future Scheduled BMI FOLLOW UP PLAN [employer] Test [code = BMI FOLLOW of Medici ne UP PLAN] Future Scheduled COVID-19 Vaccine [facility] Test Evaluation [code = of Medici ne COVID-19 Vaccine Evaluation] Future Scheduled TETANUS SHOT (ADULT) [employer] Test [code = TETANUS SHOT of Medi cine (ADULT)] Future Scheduled Hepatitis C [facility] Test screening of Medicine (procedure) [code = 795142946] Future Scheduled ZOSTER VACCINE (1 of [employer] Test 2) [code = ZOSTER of Medicin e VACCINE (1 of 2)] Future Scheduled FALL SCREEN [code = [employer] Test FALL SCREEN] of Medicine Future Scheduled Screening for [facility] Test osteoporosis of Medicine (procedure) [code = 613825205] Future Scheduled PNEUMOVAX >=65 [facility] Test (PPSV23) [code = of Medicine PNEUMOVAX >=65 (PPSV23)] Future Scheduled MEDICARE AWV [facility] Test (Initial) [code = of Medicin e MEDICARE AWV (Initial)] Future Scheduled FLU VACCINE > 6 [facility] C [facility]lege Test MONTHS [code = FLU of Medici ne VACCINE > 6 MONTHS] Future Scheduled BMI FOLLOW UP PLAN [employer] Test [code = BMI FOLLOW of Medici ne UP PLAN] Future Scheduled US VENOUS LEG RIGHT 1 Occurrences [employer] Test [code = 23848] starting of Medicine 06/22/2020 until 06/22/2021 Future Scheduled US VENOUS LEG LEFT 1 Occurrences [employer] Test [code = 14276] starting of Medicine 04/20/2020 until 11/18/2020 Encounters Start End Encounter Admission Attending Care Care Encounter Source Date/Time Date/Time Type Type Clinicians Facility Department ID 2020-09-21 2020-09-21 Office REBECCA Preciado 1.2.840.114 [id number] [facility] 09:58:50 11:23:50 Visit Ramyar AMBULATOR [id number] College Y 0.2.7.2.686 of [id number] [facility] 825 e 2020-06-22 2020-06-22 Office REBECCA Preciado 1.2.840.114 [id number] [facility] 10:43:14 10:58:14 Visit Ramyar AMBULATOR [id number] College Y 0.2.7.2.686 of [id number] [facility] 825 e 2020-05-06 2020-05-06 Patient Rogelio [facility] 1.2.840.114 [id number] Univers 00:00:00 00:00:00 Outreach Robbie PRIMARY [id number] i ty of [facility] 4.2.7.2.686 Vira BOOKER [id number] Ut dical 388 Branch 2020-04-20 2020-04-20 Office REBECCA Preciado 1.2.840.114 [id number] [facility] 09:31:08 15:03:29 Visit Ramyar AMBULATOR [id number] College Y 0.2.7.2.686 of [id number] [facility] 825 e 2020-04-20 2020-04-20 Office REBECCA Preciado 1.2.840.114 [id number] 09:31:08 15:03:29 Visit Ramyar AMBULATOR [id number] Y 0.2.7.2.686 [id number] 2020-01-09 2020-01-09 [facility] 1.2.840.114 [id number] [facility] 00:00:00 00:00:00 Claudette A [place] [id number] [place] [phone] [address] 2020-01-09 2020-01-09 Telephone [facility] 1.2.840.114 [id number] 00:00:00 00:00:00 Claudette A [place] [id number] [place] 4.2.7.2.686 Professio [phone] [address] 2019-10-18 2019-10-18 Refill [facility] 1.2.840.114 [id number] Univers 00:00:00 00:00:00 Claudette A [place] 350.1.13.10 [place] [phone] [address] 2019-10-18 2019-10-18 Refill [facility], [facility] 1.2.840.114 [id number] 00:00:00 00:00:00 Claudette A [place] [id number] [place] 4.2.7.2.686 Professio [phone] [address] 2019-07-05 2019-07-05 Refill Kidd, [facility] 1.2.840.114 [id number] Univers 00:00:00 00:00:00 Claudette A [place] [id number] [place] [phone] [facility] [address] [facility] 2019-07-05 2019-07-05 Refill Bernabe [facility] 1.2.840.114 [id number] 00:00:00 00:00:00 Claudette Gutierrez 350.1.13.10 [place] 4.2.7.2.686 Professio [phone] [facility] 231 [facility] 2018-12-06 2018-12-06 [employer] 2, Adc Lab [facility] 1.2.840.114 [id number] [facility] 08:15:07 08:30:07 Visit Claudette Kidd 350.1. 13.10 [place] [phone] [facility] 353 [facility] 2018-12-06 2018-12-06 [employer] 2, Adc Lab [facility] 1.2.840.114 [id number] 08:15:07 08:30:07 Visit Matt 350.1.13.10 [place] 4.2.7.2.686 Professio [phone] [address] 2018-12-06 2018-12-06 [facility] 1.2.840.114 [id number] [facility] 00:00:00 00:00:00 Claudette Gutierrez 350.1.13.10 [place] [phone] [facility] 044 [facility] 2018-12-06 2018-12-06 Orders Doctor MARLON 1.2.840.114 [id number] Univers 00:00:00 00:00:00 Only Unassigned, [place] 350.1.13.10 ity of [place] [facility] 4.2.7.2.686 Javan as [phone] [address] 2018-12-06 2018-12-06 Telephone Bernabe [facility] 1.2.840.114 [id number] 00:00:00 00:00:00 Claudette Gutierrez 350.1.13.10 [place] 4.2.7.2.686 Professio [phone] [address] 2018-12-06 2018-12-06 Orders Doctor MARLON 1.2.840.114 [id number] 00:00:00 00:00:00 Only Unassigned, [facility] 350.1.13.10 [facility] 4.2.7.2.686 [id number] [facility] 2018-11-23 2018-11-23 Office Kidd [facility] 1.2.840.114 [id number] [facility] 15:02:16 16:30:22 Visit Claudette Gutierrez 350.1.13.10 it[place] [phone] [address] 2018-11-23 2018-11-23 Office Bernabe [facility] 1.2.840.114 [id number] 15:02:16 16:30:22 Visit Claudette Gutierrez 350.1.13.10 [place] 4.2.7.2.686 Professio [phone] [address] 2018-11-23 2018-11-23 Orders Doctor MARLON 1.2.840.114 [id number] Univers 00:00:00 00:00:00 Only Unassigned, [facility] 350.1.13.10 ity of [place] [facility] 4.2.7.2.686 [place] as [phone] [address] 2018-11-15 2018-11-15 [employer] 2, Adc Lab [facility] 1.2.840.114 [id number] [facility] 08:23:26 08:38:26 Visit Claudette Kidd 350.1. 13.10 ity [place] [phone] [address] 2018-11-15 2018-11-15 Orders Doctor MARLON 1.2.840.114 [id number] Univers 00:00:00 00:00:00 Only Unassigned, ONE[facility] 350.1.13.10 ity of [place] [facility] 4.2.7.2.686 J[place] as [phone] [address] Results Test Description Test Time Test Comments Results Result Comments Source HAPTOGLOBIN 2022-03-29 16:08:00 Test Item Value Reference Range Interpretation Comme nts HAPTOGLOBIN (test code = HAPT) 107 mg/dL 42-346 Performed At: DA [facility] [id number] [place], [place] [id number] APRIL MARK Ph:[phone] ANTINUCLEAR ANTIBODIES [id number] 11:10:00 Test Item Value Reference Range Interpretation Comments UMESH HOMOGENEOUS Negative See_Comment Negative <1 :80 PATTERN (test code = Borderl ine 1:80 Positive ANAHOM) >1:80ICAP nomen clature: AC-0For more in formation about Hep-2 clark l patterns useANApatterns. org, the official websit e for theInternationa l Consensus on An tinuclear Antibody (UMESH)P attergene (ICAP).Performe d At: [facility] [address] [id number] Fletcher Wright MD Ph:[phone] [ Automated message] The sy stem which generated this result transmitted ref erence range: (). The reference range was not u sed to interpret this result as normal/abnormal . UMESH TITER (test code = ANATITR) UMESH COMMENT (test code = ANACOM) PROTEIN ELECTROPHORESIS [id number] 03:56:00 Test Item Value Reference Range Interpretation Comments TOTAL PROTEIN (test code = PROTE) ALBUMIN (test code = ALBE) [id number] (test code = A1G) [id number] (test code = A2G) BETA GLOBULIN (test code = BG) GAMMA GLOBULIN (test code = GG) M-SPIKE,SERUM (test code = MSPIKES) GLOBULIN ELECT (test code = GLOBE) ALBUMIN/GLOBULIN RATIO (test code = AGE) PROT.ELECTROPH.INTERPRETATION (test code = ELEINT) SERUM [id number] 03:56:00 Test Item Value Reference Range Interpretation Comments SERUM IRON (test code = IRON) 16 mcG/DL 50-170 L TOTAL IRON BINDING [id number] 03:56:00 Test Item Value Reference Range Interpretation Comments TOTAL IRON BINDING CAPACITY (test 291 mcg/dL 260-445 code = TIBC) VITAMIN [id number] 03:56:00 Test Item Value Reference Range Interpretation Comments VITAMIN B12 (test code = VITB12) 736 pg/mL 193-986 TOTAL IRON BINDING [id number] 03:56:00 Test Item Value Reference Range Interpretation Comments TOTAL IRON BINDING CAPACITY (test 291 mcg/dL 260-445 N code = TIBC) FOLIC [id number] 03:56:00 Test Item Value Reference Range Interpretation Comments FOLIC ACID (test code = FOL) 23.3 ng/mL 3.1-17.5 H THYROID STIMULATING [id number] 03:56:00 Test Item Value Reference Range Interpretation Comments THYROID STIMULATING HORMONE 0.921 mcIU/ML 0.340-4.820 N (test code = TSH) [id number] 03:56:00 Test Item Value Reference Range Interpretation Comments FERRITIN (test code = LIANG) 8.5 ng/mL 11.0-306.8 L VITAMIN [id number] 03:56:00 Test Item Value Reference Range Interpretation Comments VITAMIN B12 (test code = VITB12) 736 pg/mL 193-986 N FOLIC [id number] 03:56:00 Test Item Value Reference Range Interpretation Comments FOLIC ACID (test code = FOL) 23.3 ng/mL 3.1-17.5 H [id number] 03:56:00 Test Item Value Reference Range Interpretation Comments FERRITIN (test code = LIANG) 8.5 ng/mL 11.0-306.8 L COMPREHENSIVE METABOLIC [id number] 03:48:00 Test Item Value Reference Range Interpretation Comments SODIUM (test code 146 mmol/L 134-147 N = NA) POTASSIUM (test 3.6 mmol/L 3.4-5.0 N code = K) CHLORIDE (test 118 mmol/L 100-108 H code = CL) CARBON DIOXIDE 23 mmol/L 21-32 N (test code = CO2) ANION GAP (test 5.0 GAP calc 4.0-15.0 N code = GAP) GLUCOSE (test code 99 MG/DL 70-110 N = GLU) BLOOD UREA 29 MG/DL 7-18 H NITROGEN (test code = BUN) GLOMERULAR >=60 max >60 The Glomerular FILTRATION RATE estimate estGFR Filtratio n Rate is a (test code = GFR) calculated parameterbased on serum Creatinin e, patient age and sex. GFR valuesless than 60 mL/min/1.73 square meters are pawel cative ofChronic Kidne y Disease. Values less than 15 mL/min/1.73squa re meters indicate Kidney failure. The calculation for GFR is based on the CK D-EPI (2020) calculat ion. This formulais race indifferent and is the recommended formula for GFR by the National Kidney Foundation for Adults.The GFR will not calculate i f the sex is unknown or if thepatient's ag e is <18 years. CREATININE (test 0.8 MG/DL 0.6-1.0 N code = CREAT) TOTAL PROTEIN 5.2 G/DL 6.4-8.2 L (test code = PROT) ALBUMIN (test code 2.6 G/DL 3.4-5.0 L = ALB) GLOBULIN (test 2.6 GM/dL code = GLOB) ALBUMIN/GLOBULIN 1.0 RATIO 1.2-2.2 L RATIO (test code = A/G) CALCIUM (test code 7.8 MG/DL 8.5-10.1 L = CA) BILIRUBIN TOTAL 0.30 MG/DL 0.2-1.2 N (test code = BILT) SGOT/AST (test 19 Unit/L 15-37 N code = AST) SGPT/ALT (test 24 Unit/L 12-78 N code = ALT) ALKALINE 27 Unit/L 45-117 L PHOSPHATASE TOTAL (test code = ALKP) Comment: PER MD FOR MORNING LABSCBC W/AUTO [id number] 03:32:00 Test Item Value Reference Range Interpretation Comments WHITE BLOOD CELL (test code = 8.8 K/mm3 3.5-11.0 N WBC) RED BLOOD CELL (test code = 2.86 M/mm3 4.70-6.10 L RBC) HEMOGLOBIN (test code = HGB) 7.5 G/DL 10.4-14.9 L HEMATOCRIT (test code = HCT) 24.3 % 31.5-44.1 L MEAN CELL VOLUME (test code = 85.0 Fl 84.5-98.6 N MCV) MEAN CELL HGB (test code = MCH) 26.2 pg 27.0-34.2 L MEAN CELL HGB CONCETRATION 30.9 G/DL 31.5-34.0 L (test code = MCHC) RED CELL DISTRIBUTION WIDTH 19.3 SD 11.5-14.5 H (test code = RDW) PLATELET COUNT (test code = 637 K/mm3 150-450 H PLT) MEAN PLATELET VOLUME (test code 9.90 fL 7.0-10.5 N = MPV) NEUTROPHIL % (test code = NT%) 71.0 % 40-76 N IMMATURE GRANULOCYTE % (test 2.1 % 0.0-5.0 N code = IG%) LYMPHOCYTE % (test code = LY%) 13.9 % 20.5-51.1 L MONOCYTE % (test code = MO%) 9.5 % 1.7-9.3 H EOSINOPHIL % (test code = EO%) 2.5 % 0.0-6.0 N BASOPHIL % (test code = BA%) 1.0 % 0.0-2.0 N NUCLEATED RBC % (test code = 0.3 /100WBC% 0.0-1.0 N NRBC%) NEUTROPHIL # (test code = NT#) 6.2 K/mm3 1.8-7.6 N IMMATURE GRANULOCYTE # (test 0.18 x10 3/uL 0.00-0.03 H code = IG#) LYMPHOCYTE # (test code = LY#) 1.2 K/mm3 0.6-3.2 N MONOCYTE # (test code = MO#) 0.8 K/mm3 0.3-1.1 N EOSINOPHIL # (test code = EO#) 0.2 K/mm3 0.0-0.4 N BASOPHIL # (test code = BA#) 0.1 K/mm3 0.0-0.1 N NUCLEATED RBC # (test code = 0.0 K/mm3 0.0-0.1 N NRBC#) MANUAL DIFF REQUIRED (test code NO DIFF/SCN CRITERIA = MDIFF) Comment: PER MD FOR AM LABSRETIC COUNT (AUTOMATED)2022-03-28 17:54:00 Test Item Value Reference Range Interpretation Comments RETIC COUNT (AUTOMATED) (test code = 2.3 % 0.3-2.3 N RETICA) COVID 19 INHOUSE [id number] 10:52:00 Test Item Value Reference Range Interpretation Comments COVID 19 INHOUSE AG NEGATIVE Negative Per manu facturer, (test code = negative result s should [id number]) be treated aspr esumptive and, if inconsi stent with clinical signs andsymptoms or necessary for patient man agement, should betested with an alternative mol ecular assay. Negative resultsdo not preclude SA RS-CoV-2 infection and s hould not be usedas the s ole basis for patient man agement decisions. Nega tive results should be considered in t he context of apatient's r ecent exposures, hist ory, presence of cli nicalsigns and symptoms co nsistent with COVID-19. COMPREHENSIVE METABOLIC [id number] 08:55:00 Test Item Value Reference Range Interpretation Comments SODIUM (test code 146 mmol/L 134-147 N = NA) POTASSIUM (test 3.6 mmol/L 3.4-5.0 N code = K) CHLORIDE (test 116 mmol/L 100-108 H code = CL) CARBON DIOXIDE 23 mmol/L 21-32 N (test code = CO2) ANION GAP (test 7.0 GAP calc 4.0-15.0 N code = GAP) GLUCOSE (test code 107 MG/DL 70-110 N = GLU) BLOOD UREA 44 MG/DL 7-18 H NITROGEN (test code = BUN) GLOMERULAR >=60 max >60 The Glomerular FILTRATION RATE estimate estGFR Filtratio n Rate is a (test code = GFR) calculated parameterbased on serum Creatinin e, patient age and sex. GFR valuesless than 60 mL/min/1.73 square meters are pawel cative ofChronic Kidne y Disease. Values less than 15 mL/min/1.73squa re meters indicate Kidney failure. The calculation for GFR is based on the CK D-EPI (2020) calculat ion. This formulais race indifferent and is the recommended formula for GFR by the National Kidney Foundation for Adults.The GFR will not calculate i f the sex is unknown or if thepatient's ag e is <18 years. CREATININE (test 0.9 MG/DL 0.6-1.0 N code = CREAT) TOTAL PROTEIN 5.2 G/DL 6.4-8.2 L (test code = PROT) ALBUMIN (test code 2.7 G/DL 3.4-5.0 L = ALB) GLOBULIN (test 2.5 GM/dL code = GLOB) ALBUMIN/GLOBULIN 1.1 RATIO 1.2-2.2 L RATIO (test code = A/G) CALCIUM (test code 8.0 MG/DL 8.5-10.1 L = CA) BILIRUBIN TOTAL 0.30 MG/DL 0.2-1.2 N (test code = BILT) SGOT/AST (test 12 Unit/L 15-37 L code = AST) SGPT/ALT (test 22 Unit/L 12-78 N code = ALT) ALKALINE 27 Unit/L 45-117 L PHOSPHATASE TOTAL (test code = ALKP) CBC W/AUTO [id number] 08:47:00 Test Item Value Reference Range Interpretation Comments WHITE BLOOD CELL (test code = 12.3 K/mm3 3.5-11.0 H WBC) RED BLOOD CELL (test code = 2.97 M/mm3 4.70-6.10 L RBC) HEMOGLOBIN (test code = HGB) 7.8 G/DL 10.4-14.9 L HEMATOCRIT (test code = HCT) 24.4 % 31.5-44.1 L MEAN CELL VOLUME (test code = 82.2 Fl 84.5-98.6 L MCV) MEAN CELL HGB (test code = MCH) 26.3 pg 27.0-34.2 L MEAN CELL HGB CONCETRATION 32.0 G/DL 31.5-34.0 N (test code = MCHC) RED CELL DISTRIBUTION WIDTH 18.9 SD 11.5-14.5 H (test code = RDW) PLATELET COUNT (test code = 701 K/mm3 150-450 H PLT) MEAN PLATELET VOLUME (test code 9.80 fL 7.0-10.5 N = MPV) NEUTROPHIL % (test code = NT%) 76.7 % 40-76 H IMMATURE GRANULOCYTE % (test 2.2 % 0.0-5.0 N code = IG%) LYMPHOCYTE % (test code = LY%) 10.5 % 20.5-51.1 L MONOCYTE % (test code = MO%) 8.9 % 1.7-9.3 N EOSINOPHIL % (test code = EO%) 0.6 % 0.0-6.0 N BASOPHIL % (test code = BA%) 1.1 % 0.0-2.0 N NUCLEATED RBC % (test code = 0.3 /100WBC% 0.0-1.0 N NRBC%) NEUTROPHIL # (test code = NT#) 9.5 K/mm3 1.8-7.6 H IMMATURE GRANULOCYTE # (test 0.27 x10 3/uL 0.00-0.03 H code = IG#) LYMPHOCYTE # (test code = LY#) 1.3 K/mm3 0.6-3.2 N MONOCYTE # (test code = MO#) 1.1 K/mm3 0.3-1.1 N EOSINOPHIL # (test code = EO#) 0.1 K/mm3 0.0-0.4 N BASOPHIL # (test code = BA#) 0.1 K/mm3 0.0-0.1 N NUCLEATED RBC # (test code = 0.0 K/mm3 0.0-0.1 N NRBC#) MANUAL DIFF REQUIRED (test code NO DIFF/SCN CRITERIA = MDIFF) HGB [id number] 04:53:00 Test Item Value Reference Range Interpretation Comments HEMOGLOBIN (test code = HGB) 8.4 G/DL 10.4-14.9 L HEMATOCRIT (test code = HCT) 26.8 % 31.5-44.1 L
[2022-03-29 18:07] LABS: Absolute Lymphocytes (CBC) 10.7 K/uL (0.7-4.9); Hematocrit 28.2 % (36.0-45.0); Lymphocytes % 38.8 % (15.3-44.8); MPV 8.7 fL (7.6-11.3); RBC Red Blood Cell Count 3.14 M/uL (3.86-4.86)
[2022-03-29 18:09] LABS: Protime INR 1.29
--- NOTE | 2022-03-29 18:13 | ER ---
Nurse's Notes [facility] Name: July Burton Age: 76 yrs Sex: Female : 1945 Arrival Date: 03/29/2022 Time: 17:28 Bed 2 Private MD: Diagnosis: Cardiac arrest, cause unspecified;Aspiration Presentation: 03/29 17:30 Compressions began at 17:26. jd3 17:30 Care prior to arrival: None. jd3 17:37 Chief complaint: PD called ER stating that someone called 911 and said someone was ph in the car, triage nurse out to meet vehicle, pt found pale, slumped back in seat w/ no breathing noted, no palpable pulse, placed on ED stretcher, CPR initiated by nurse, taken to trauma bay 2. Daughter who was driving states that pt had just been d/c from ICU in [place] after being transferred for GI bleed, was in vehicle on the way home when pt began coughing and having breathing difficulty. Coronavirus screen: Vaccine status: Patient reports receiving the 1st dose of the Covid vaccine. Ebola Screen: No symptoms or risks identified at this time. Onset of symptoms was March 29, 2022. 17:37 Method Of Arrival: Stretcher ph 17:37 Acuity: MARCUS 1 ph Historical: - Allergies: 17:42 Codeine; ph - PMHx: 17:42 Alzheimers; Dementia; Glaucoma; Hyperlipidemia; Hypertension; ph - Hospitalizations: : Patient was recently seen at. - History obtained from: daughter. - Unable to obtain history due to: comatose state. Assessment: 17:30 Cardiac rhythm is asystole. jd3 17:30 CPR assessment: unresponsive, pupils fixed \T\ dilated, no respiratory effort, intubated, jd3 Ambu ventilation, pale, pulses present w/ compressions. 17:30 Reassessment: blood noted in stool with rectal temp. jd3 17:34 Cardiac rhythm is asystole. Neuro: Olivier Agitation-Sedation Scale (RASS): -5 jd3 Unarousable Level of Consciousness is unresponsive. Cardiovascular: Rhythm is asystole. Derm: Skin is dusky, pale, Skin temperature is cold. 17:34 CPR assessment: unresponsive, intubated, Ambu ventilation, pulses present w/ jd3 compressions. 17:35 Reassessment: Patient cardiac arrest. See code charting. Reassessment:. GI:. GI: noted db dark blood in patient brief. 17:37 CPR assessment: unresponsive, intubated, Ambu ventilation, pulses present w/ jd3 compressions. Cardiac rhythm is asystole. 17:40 CPR assessment: unresponsive, intubated, Ambu ventilation, pulses present w/ jd3 compressions. Cardiac rhythm is asystole. 17:43 CPR assessment: unresponsive, intubated, Ambu ventilation, pulses present w/ jd3 compressions. Cardiac rhythm is asystole. 17:46 Cardiac rhythm is asystole. jd3 17:46 CPR assessment: unresponsive, intubated, Ambu ventilation, pulses present w/ jd3 compressions. 17:50 Cardiac rhythm is asystole. jd3 Vital Signs: 17:30 Pulse 0; Resp 0; Temp 94.9(R); ll1 17:50 Pulse 0; Resp 0; Temp 94.9(R); jd3 ED Course: 17:28 Patient arrived in ED. mr 17:30 Inserted saline lock: 20 gauge in right antecubital area, using aseptic technique. ll1 17:30 Assisted provider with intubation using 7.5 mm ETT via oral route. ET tube secured at jd3 22cm at the gums. Intubated by Nguyễn Weiss MD Placement verified by CO2 detector w/ + color change, auscultating bilateral breath sounds. 17:38 Nguyễn Weiss MD is Attending Physician. rn 17:38 Inserted saline lock: 20 gauge in left antecubital area, using aseptic technique. Blood jd3 collected. 17:42 Triage completed. ph 17:43 Arm band placed on Patient placed in an exam room, on a stretcher, on oxygen, on ph cardiac cath technician, on pulse oximetry. 18:11 Nguyễn Weiss MD is Pronouncing Provider. rn 18:24 Yohana Chni RN is Primary Nurse. db 18:24 Notified ED physician of a critical lab result(s). K 6.1. ll1 Administered Medications: 17:31 Drug: EPINEPHrine 0.1mg/mL 1:10,000 1 mg Route: IVP; Site: right antecubital; jd3 17:50 Follow up: Response: No change in condition jd3 17:32 Drug: Sodium Bicarbonate 1 amp Route: IVP; Site: right antecubital; jd3 17:50 Follow up: Response: No change in condition jd3 17:32 Drug: NS 0.9% 1000 ml Route: IV; Rate: 1 bolus; Site: right antecubital; jd3 17:50 Follow up: Response: No change in condition; IV Status: Completed infusion; IV Intake: db 800ml 17:34 Drug: EPINEPHrine 0.1mg/mL 1:10,000 1 mg Route: IVP; Site: right antecubital; jd3 17:50 Follow up: Response: No change in condition jd3 17:38 Drug: EPINEPHrine 0.1mg/mL 1:10,000 1 mg Route: IVP; Site: right antecubital; jd3 17:50 Follow up: Response: No change in condition jd3 17:41 Drug: EPINEPHrine 0.1mg/mL 1:10,000 1 mg Route: IVP; Site: left antecubital; jd3 17:50 Follow up: Response: No change in condition jd3 17:43 Drug: EPINEPHrine 0.1mg/mL 1:10,000 1 mg Route: IVP; Site: left antecubital; jd3 17:50 Follow up: Response: No change in condition jd3 17:47 Drug: EPINEPHrine 0.1mg/mL 1:10,000 1 mg Route: IVP; Site: left antecubital; jd3 17:50 Follow up: Response: No change in condition jd3 Intake: 17:50 IV: 800ml; Total: 800ml. db Outcome: 17:50 Outcome Patient jd3 17:50 Condition: jd3 18:09 Patient : Time of 17:50 jd3 21:49 Patient left the ED. ll3 Signatures: Josee Moraes Roman, MD MD rn Hall, Patricia, RN RN ph Richie Koehler RN RN jd3 Conchita Duncan RN RN ll1 Michelle Prater RN RN ll3 Yohana Chin RN RN db Corrections: (The following items were deleted from the chart) 18:00 17:30 Compressions began at 17:30. ph jd3 18:14 17:30 Cardiac rhythm is asystole j jd3 18:15 17:40 Inserted saline lock: 20 gauge in left antecubital area, using aseptic technique. jd3 Blood collected. ll1 18: 18:24 Notified ED physician of a critical lab result(s). K 6.2 1 [facility] 18: 07:35 Reassessment: Patient cardiac arrest. See code charting db db 18: 07:35 GI: db db 18: 07:35 Reassessment: db db 18: 07:35 GI: noted dark blood in patient brief db db 18: 07:35 Respiratory: db db
--- NOTE | 2022-03-29 18:13 | EDPHYS ---
Physician Documentation [facility] Name: July Burton Age: 76 yrs Sex: Female : 1945 Arrival Date: 03/29/2022 Time: 17:28 Bed 2 Private MD: ED Physician Nguyễn Weiss HPI: 03/29 18:06 This 76 yrs old Female presents to ER via Stretcher with complaints of "". rn 18:06 Preceding the arrest, the patient collapsed, was dyspneic, was choking. The arrest rn occurred in a car. Pre-hospital course: The arrest was witnessed Bystanders at the scene did not perform CPR. The patient has not experienced similar symptoms in the past. The patient has been recently seen by a physician:. Daughter reports just discharged from [facility] today, was driving her home, saw her throwing up, then choking and became unresponsive, drove her here, called 911, no CPR. Pulled from vehicle here at hospital by hospital staff, no pulse, not breathing. Was transferred from here yesterday for GI bleed. . Historical: - Allergies: 17:42 Codeine; ph - PMHx: 17:42 Alzheimers; Dementia; Glaucoma; Hyperlipidemia; Hypertension; ph - Hospitalizations: : Patient was recently seen at. - History obtained from: daughter. - Unable to obtain history due to: comatose state. ROS: 18:06 Unable to obtain ROS due to comatose state. rn Exam: 18:06 Constitutional: Pale woman, no spont movements Head/Face: Normocephalic, atraumatic. rn Eyes: Pale conjunctivae ENT: no oral trauma, + soft food brown/orange in pharynx Cardiovascular: No spont cardiac activity Respiratory: coarse bilateral breath sounds after intubation with bagging Abdomen/GI: soft, non-distended, + melena Female : + gross hematuria Skin: Cool, dry MS/ Extremity: No pulse, + acral cyanosis Neuro: GCS 3 intubated Vital Signs: 17:30 Pulse 0; Resp 0; Temp 94.9(R); ll1 17:50 Pulse 0; Resp 0; Temp 94.9(R); jd3 Procedures: 17:52 Intubation: Ventilated with 100% NRB prior to procedure. O2 saturation prior to rn military was 68 %. Intubated orally using # 4 Saniya blade with 7.5 mm ETT. was successful on first attempt. Ventilated with. 18:10 CPR: See CPR flow sheet. Initial patient assessment: unresponsive, no respiratory rn effort, pulses present w/ compressions, The presenting cardiac rhythm is asystole. respirations assisted with BVM, despite ED evaluation and treatment, the patient . CPR was stopped at 17:50. MDM: 17:38 Patient medically screened. rn 18:10 Differential diagnosis: arrythmia, cardiac arrest, respiratory arrest, choking episode, rn aspiration. 18:10 Data reviewed: vital signs, nurses notes, and as a result, I will discharge patient. rn Counseling: I had a detailed discussion with the patient and/or guardian regarding: the historical points, exam findings, and any diagnostic results supporting the discharge/admit diagnosis. Response to treatment: There is no appreciated change of the patient's symptoms at this time. 18:59 ED course: Notified by RT just prior to stopping code that tube lost resistance and was rn possibly dislodged while bagging. Family reported DNR status, taken to room, and decided immediately to stop compressions and time of declared at 1750.. 12 17:39 Order name: CBC with Diff rn 12 17:39 Order name: Protime (+inr); Complete Time: 18:59 rn 03/29 17:39 Order name: Ptt, Activated; Complete Time: 18:59 rn 03/29 17:39 Order name: Troponin HS; Complete Time: 18:59 rn 03/29 17:39 Order name: Basic Metabolic Panel; Complete Time: 18:59 rn 03/29 17:47 Order name: Glucose, Ancillary Testing; Complete Time: 18:59 EDMS 03/29 19:07 Order name: Manual Differential EDMS 03/29 17:39 Order name: Monitor; Complete Time: 17:48 rn 03/29 17:39 Order name: IV Start; Complete Time: 17:48 rn Administered Medications: 17:31 Drug: EPINEPHrine 0.1mg/mL 1:10,000 1 mg Route: IVP; Site: right antecubital; jd3 17:50 Follow up: Response: No change in condition jd3 17:32 Drug: Sodium Bicarbonate 1 amp Route: IVP; Site: right antecubital; jd3 17:50 Follow up: Response: No change in condition jd3 17:32 Drug: NS 0.9% 1000 ml Route: IV; Rate: 1 bolus; Site: right antecubital; jd3 17:50 Follow up: Response: No change in condition; IV Status: Completed infusion; IV Intake: db 800ml 17:34 Drug: EPINEPHrine 0.1mg/mL 1:10,000 1 mg Route: IVP; Site: right antecubital; jd3 17:50 Follow up: Response: No change in condition jd3 17:38 Drug: EPINEPHrine 0.1mg/mL 1:10,000 1 mg Route: IVP; Site: right antecubital; jd3 17:50 Follow up: Response: No change in condition jd3 17:41 Drug: EPINEPHrine 0.1mg/mL 1:10,000 1 mg Route: IVP; Site: left antecubital; jd3 17:50 Follow up: Response: No change in condition jd3 17:43 Drug: EPINEPHrine 0.1mg/mL 1:10,000 1 mg Route: IVP; Site: left antecubital; jd3 17:50 Follow up: Response: No change in condition jd3 17:47 Drug: EPINEPHrine 0.1mg/mL 1:10,000 1 mg Route: IVP; Site: left antecubital; jd3 17:50 Follow up: Response: No change in condition jd3 Disposition: 18:10 Critical Care:. . 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 Total rn time: 40 minutes Signatures: Dispatcher [employer] EDMS Nguyễn Weiss ph D, MD MD rn Hall, Patricia, RN RNavies, Jonathon, RN RN jd3 Benton, Danielle RN db Corrections: (The following items were deleted from the chart) 18:11 18:06 Constitutional: Pale woman, no spont movements Head/Face: Normocephalic, rn atraumatic. Eyes: Pale conjunctivae ENT: no oral trauma, + soft food brown/orange in pharynx Cardiovascular: No spont cardiac activity Respiratory: coarse bilateral breath sounds after intubation with bagging Abdomen/GI: soft, non-distended Skin: Cool, dry MS/ Extremity: No pulse, + acral cyanosis Neuro: GCS 3 intubated rn 18:52 17:40 LACTATE+C.LAB.BRZ ordered. EDMS EDMS
[2022-03-29 18:23] LABS: Troponin High Sensitivity 19.7 pg/mL (<58.9)
[2022-03-29 18:24] LABS: Potassium 6.1 mmol/L (3.5-5.1)
[2022-03-29 19:06] LABS: Anisocytosis 1+; Blood Morphology Comment NOTED (NOT SEEN); Poikilocytosis 2+
[2022-03-29 19:07] LABS: Platelet Estimate INCR
[2022-03-29 21:53] VITALS: TEMP 94.9
== END 2022-03-29 21:49 | disposition expired ==
LOC: ER 17:27
PROC: 5A12012 Performance of Cardiac Output, Single, Manual (ICD-10-PCS; principal; 2022-03-29)
DX: I46.9 Cardiac arrest, cause unspecified (principal); T17.918A Gastric contents in respiratory tract, part unspecified causing other injury, initial encounter; G30.9 Alzheimer's disease, unspecified; F02.80 Dementia in other diseases classified elsewhere, unspecified severity, without behavioral disturbance, psychotic disturbance, mood disturbance, and anxiety; I10 Essential (primary) hypertension; Z88.5 Allergy status to narcotic agent
CPT/HCPCS: 31500; 36415; 80048; 82947; 84484; 85025; 85610; 85730; 92950; 99285; J0171